=== PATIENT | male | born 1960 | race Caucasian/White ===

== ENCOUNTER 2018-11-06 12:29 | Inpatient (IN) | payer MEDICARE, OTHER ==
--- NOTE | 2018-11-06 18:49 | XR ---
EXAMINATION: XR chest 3V DATE AND TIME: 11/06/2018 6:38 PM CLINICAL INDICATION: PHH; copd TECHNIQUE: Frontal and 2 lateral views COMPARISON: 05/04/2014 FINDINGS: The overlying soft tissues are prominent. The lungs are negative for definite pulmonary edema or major atelectasis or pneumonia. There is a 1 c m calcification which was seen on the prior study, consistent with calcified granuloma. The pleural spaces are negative. The cardiac silhouette is markedly enlarged, similar to the prior study. The remainder of the mediast inal silhouette is unremarkable. The skeletal structures and soft tissues are negative for acute findings. IMPRESSION: NO ACUTE PULMONARY-PLEURAL PROCESS.
[2018-11-06 19:03] LABS: ALT 31 U/L (21-72); AST 23 U/L (17-59); Alkaline Phosphatase 81 U/L (38-126); Anion Gap 3 mmol/L; Blood Urea Nitrogen 16 mg/dL (9-20); Calcium 8.6 mg/dL (8.4-10.2); Carbon Dioxide 39 mmol/L (22-30); Chloride 99 mmol/L (98-107); Glucose 86 mg/dL (74-99); Potassium 4.5 mmol/L (3.5-5.1); Sodium 141 mmol/L (137-145); Total Bilirubin 0.7 mg/dL (0.2-1.3); Total Protein 7.2 g/dL (6.3-8.2)
[2018-11-06 19:19] LABS: T4, Free (Free Thyroxine) 1.12 ng/dL (0.78-2.19)
[2018-11-06 19:26] LABS: Anisocytosis Slight; HGB 17.1 gm/dL (13.0-17.5); Hypochromasia Marked; MCHC 29.5 g/dL (31.0-37.0); MCV 88.3 fL (80.0-100.0); Mean Platelet Volume 7.5; Platelet Count 219 k/uL (150-450); RBC 6.57 m/uL (4.30-5.90); RDW 17.8 % (11.5-15.5); WBC 5.6 k/uL (3.8-10.6)
[2018-11-06] MEDS: FUROSEMIDE 80 MG TAB PO SCH (19:58)
[2018-11-06] MEDS: SYMBICORT 160-4.5 MCG INHALER INHALATION SCH (20:28)
[2018-11-06] MEDS: IPRATROPIUM-ALBUTEROL 3 ML NEB INHALATION SCH (20:28)
[2018-11-06 20:45] LABS: Band Neutrophils % 10 %; Eosinophils # (M) 0.06 k/uL (0-0.7); Lymphocytes # (M) 1.29 k/uL (1.0-4.8); Monocytes # (M) 0.22 k/uL (0-1.0); Neutrophils % (M) 62 %; Nucleated Red Blood Cells 0 /100 WBC (0-0); Total Cells Counted 100
[2018-11-06] MEDS: SPIRONOLACTONE 25 MG TAB PO SCH (21:59)
[2018-11-06 22:43] LABS: Appearance,Urine Clear (Clear); Bilirubin,Urine Negative (Negative); Blood,Urine Negative (Negative); Color,Urine Colorless; Glucose,Urine (UA) Negative (Negative); Ketones,Urine Negative (Negative); Leukocyte Esterase,Urine Negative (Negative); Nitrite,Urine Negative (Negative); Protein,Urine Trace (Negative); Specific Gravity,Urine 1.004 (1.001-1.035); Urobilinogen,Urine <2.0 mg/dL (<2.0)
[2018-11-06] MEDS: ceFAZolin 1,000 MG in DEXTROSE/WATER 1 50ML.BAG IVPB SCH (23:54)
[2018-11-07] MEDS ORDERED: ceFAZolin IN SWFI 2 GM/20 ML SYRINGE IVP SCH
[2018-11-07 02:04] LABS: Hemoglobin A1C 6.2 % (4.0-6.0)
[2018-11-07 07:40] LABS: ABG Base Excess 13.8 mmol/L; ABG Oxygen Saturation 93.1 % (94-97); ABG PH 7.21 (7.35-7.45); ABG PO2 80 mmHg (83-108); ABG TCO2 45 mmol/L (19-24)
[2018-11-07 07:44] LABS: Glucose,Whole Blood 117 mg/dL (75-99)
[2018-11-07] MEDS ORDERED: FUROSEMIDE 10 MG/ML 10 ML VIAL IV STA (07:51)
--- NOTE | 2018-11-07 07:56 | XR ---
EXAMINATION TYPE: XR chest 1V portable DATE OF EXAM: 11/07/2018 HISTORY: shortness of breath. REFERENCE: Previous study dated 11/06/2018. FINDINGS: The heart is enlarged. There is vascular congestion and pulmonary edema. I could not exclud e small effusions. I suspect underlying COPD. IMPRESSION: FINDINGS MOST CONSISTENT WITH CONGESTIVE HEART FAILURE.
[2018-11-07] MEDS: THEOPHYLLINE 24 HOUR 300 MG CAP.ER.24H PO SCH (08:31)
[2018-11-07] MEDS: ceFAZolin 1,000 MG in DEXTROSE/WATER 1 50ML.BAG IVPB SCH ×2 (08:31→15:12)
[2018-11-07] MEDS: FUROSEMIDE 80 MG TAB PO SCH ×2 (08:31→18:47)
[2018-11-07] MEDS: SPIRONOLACTONE 25 MG TAB PO SCH ×2 (08:31→21:39)
[2018-11-07] MEDS: LISINOPRIL 20 MG TAB PO SCH (08:31)
[2018-11-07] MEDS: IPRATROPIUM-ALBUTEROL 3 ML NEB INHALATION SCH ×4 (09:47→20:03)
[2018-11-07] MEDS: SYMBICORT 160-4.5 MCG INHALER INHALATION SCH (09:48)
--- NOTE | 2018-11-07 09:58 | P.CNPUL ---
History of Present Illness Consult date: 11/07/18 Reason for consult: dyspnea, COPD, obstructive sleep apnea Chief complaint: Cellulitis History of present illness: This is a 58-year-old gentleman who was a direct admit from Dr. Sevilla's office. The patient was apparently admitted for lower extremity cellulitis and ulcers. This morning a rapid response was called because the patient was hypoxic. He was on 2 L nasal cannula with O2 saturation 70%. The oxygen was increased to 6 L and the patient was somnolent. An ABG was obtained and the patient was found to have a CO2 of 103. The patient apparently does not wear home oxygen. He is however on theophylline. He states he does not follow with a lung doctor in the office. He denies fevers and chills. He states he is a lifelong never smoker. He does have a history of obstructive sleep apnea but states he does not have a CPAP. This morning the patient was given Lasix 80 mg 1 IV as well as Solu-Medrol. He is currently on BiPAP and is easily arousable, conversational, comfortable. Review of Systems All systems: negative Past Medical History Past Medical History: Heart Failure, COPD, Hypertension, Osteoarthritis (OA), Sleep Apnea/CPAP/BIPAP Additional Past Medical History / Comment(s): OBESITY. CELLULITIS. does not have cpap History of Any Multi-Drug Resistant Organisms: None Reported Past Surgical History: Adenoidectomy, Tonsillectomy Past Anesthesia/Blood Transfusion Reactions: No Reported Reaction Past Psychological History: No Psychological Hx Reported Smoking Status: Never smoker Past Alcohol Use History: Rare Past Drug Use History: None Reported - Past Family History Sister(s) Family Medical History: Cancer Mother Family Medical History: Cancer Medications and Allergies Home Medications Medication Instructions Recorded Confirmed Type Albuterol Sulfate [Proair Hfa] 1 puff INHALATION RT-QID PRN 05/04/14 11/06/18 History Fluticasone/Salmeterol [Advair 1 puff INHALATION RT-BID 05/04/14 11/06/18 History 500-50 Diskus] Furosemide [Lasix] 80 mg PO BID 05/04/14 11/06/18 History Albuterol Nebulized [Ventolin 2.5 mg INHALATION RT-QID 11/06/18 11/06/18 History Nebulized] SILVER sulfADIAZINE Cream 1 applic TOPICAL BID 11/06/18 11/06/18 History [Silvadene 1% Cream] Allergies Allergy/AdvReac Type Severity Reaction Status Date / Time Penicillins Allergy Unknown Verified 10/24/14 10:52 Physical Exam Osteopathic Statement: *. No significant issues noted on an osteopathic structural exam other than those noted in the History and Physical/Consult. Vitals: Vital Signs Temp Pulse Pulse Pulse Pulse Resp BP 11/07/18 08:36 89 15 11/07/18 08:35 97.1 F L 89 15 130/84 11/07/18 07:40 89 22 132/68 11/07/18 07:26 98.3 F 91 24 132/92 11/07/18 02:16 98.4 F 94 20 130/76 11/06/18 20:57 11/06/18 20:47 98 11/06/18 20:41 98 11/06/18 20:30 97 11/06/18 20:17 98.1 F 97 34 H 142/85 11/06/18 18:04 98.1 F 90 20 123/61 Pulse Ox 11/07/18 08:36 11/07/18 08:35 98 11/07/18 07:40 94 L 11/07/18 07:26 94 L 11/07/18 02:16 91 L 11/06/18 20:57 93 L 11/06/18 20:47 11/06/18 20:41 88 L 11/06/18 20:30 11/06/18 20:17 94 L 11/06/18 18:04 93 L Intake and Output 11/06/18 11/07/18 11/07/18 22:59 06:59 14:59 Intake Total 355 850 290 Output Total 450 Balance 355 850 -160 Intake: IV 5 240 .9 @ 20 240 Invasive Line 1 5 Intake, IV Titration 50 50 Amount ceFAZolin 1,000 mg In 50 50 Dextrose/Water 1 50ml.bag @ 100 mls/hr IVPB Q8HR [facility] Rx#:[id number] Oral 350 800 Output: Urine 450 Other: Voiding Method Toilet Toilet Urinal Urinal # Voids 4 1 Weight 149.26 kg Gen.: Patient is alert and oriented, on BiPAP, comfortable Cardiovascular: Regular rate and rhythm, S1/S2 Lungs: Diminished breath sounds bilaterally with scattered rhonchi Abdomen: Soft nontender nondistended positive bowel sounds Extremities: Edema with chronic venous stasis and ulcers as well as stasis dermatitis Results - Laboratory Findings CBC and BMP: 11/06/18 18:49 11/06/18 18:49 ABG ABG pH 7.21 (7.35-7.45) L 11/07/18 07:30 ABG pCO2 103 mmHg (35-45) H* 11/07/18 07:30 ABG pO2 80 mmHg (83-108) L 11/07/18 07:30 ABG O2 Saturation 93.1 % (94-97) L 11/07/18 07:30 Abnormal lab findings: Abnormal Labs 11/06/18 11/06/18 11/06/18 18:49 18:49 18:49 RBC 6.57 H Hct 58.0 H* MCHC 29.5 L RDW 17.8 H ABG pH ABG pCO2 ABG pO2 ABG HCO3 ABG Total CO2 ABG O2 Saturation Carbon Dioxide 39 H POC Glucose (mg/dL) Hemoglobin A1c 6.2 H Albumin 3.0 L Urine Protein 11/06/18 11/07/18 11/07/18 22:31 07:25 07:30 RBC Hct MCHC RDW ABG pH 7.21 L ABG pCO2 103 H* ABG pO2 80 L ABG HCO3 42 H* ABG Total CO2 45 H ABG O2 Saturation 93.1 L Carbon Dioxide POC Glucose (mg/dL) 117 H Hemoglobin A1c Albumin Urine Protein Trace H - Diagnostic Findings Chest x-ray: report reviewed, image reviewed Assessment and Plan Assessment: Acute on chronic hypoxic and hypercapnic respiratory failure Acute exacerbation of asthma, severe persistent, uncontrolled Respiratory acidosis Life long never smoker DAIANA/OHS - non compliant with PAP therapy Suspect chronic hypoxemia due to polycythemia Suspect cor pulmonale and right heart failure secondary to above Acute exacerbation of CHF, unknown type Lower extremity cellulitis Mild PCM Continue bipap today and nightly Pulmicort, Ruddy Dougherty, Perforomist Patient will need bipap for home, will consult case management Lasix given Echocardiogram ABX per ID Solumedrol taper Check theophylline level I/O, daily weight, monitor urine output and renal function CBC, CMP now IgE/HP/allergy panel AM CXR Thank you for this consultation. We will continue to follow along.
--- NOTE | 2018-11-07 10:31 | P.GSCN ---
History of Present Illness Consult date: 11/07/18 Reason for Consult: Lower extremity cellulitis and ulcerations Requesting physician: Daquan Sevilla History of present illness: We are unable to obtain a history from this gentleman as he is moderately obtunded. Review of Systems ROS unobtainable: due to mental status Past Medical History Past Medical History: Heart Failure, COPD, Hypertension, Osteoarthritis (OA), Sleep Apnea/CPAP/BIPAP Additional Past Medical History / Comment(s): OBESITY. CELLULITIS. does not have cpap History of Any Multi-Drug Resistant Organisms: None Reported Past Surgical History: Adenoidectomy, Tonsillectomy Past Anesthesia/Blood Transfusion Reactions: No Reported Reaction Past Psychological History: No Psychological Hx Reported Smoking Status: Never smoker Past Alcohol Use History: Rare Past Drug Use History: None Reported - Past Family History Sister(s) Family Medical History: Cancer Mother Family Medical History: Cancer Medications and Allergies Home Medications Medication Instructions Recorded Confirmed Type Albuterol Sulfate [Proair Hfa] 1 puff INHALATION RT-QID PRN 05/04/14 11/06/18 History Fluticasone/Salmeterol [Advair 1 puff INHALATION RT-BID 05/04/14 11/06/18 History 500-50 Diskus] Furosemide [Lasix] 80 mg PO BID 05/04/14 11/06/18 History Albuterol Nebulized [Ventolin 2.5 mg INHALATION RT-QID 11/06/18 11/06/18 History Nebulized] SILVER sulfADIAZINE Cream 1 applic TOPICAL BID 11/06/18 11/06/18 History [Silvadene 1% Cream] Allergies Allergy/AdvReac Type Severity Reaction Status Date / Time Penicillins Allergy Unknown Verified 10/24/14 10:52 Surgical - Exam Osteopathic Statement: *. No significant issues noted on an osteopathic structural exam other than those noted in the History and Physical/Consult. Vital Signs Temp Pulse Resp BP Pulse Ox 98.1 F 90 20 123/61 93 L 11/06/18 18:04 11/06/18 18:04 11/06/18 18:04 11/06/18 18:04 11/06/18 18:04 - General Moderately obtunded severely obese 58-year-old gentleman looking older than his chronologic years. Currently on BiPAP well developed, well nourished, obese - Eyes normal ocular movement, no icteric - ENT no hearing loss, no congestion - Neck no masses, trachea midline - Respiratory Somewhat decreased breath sounds - Cardiovascular Rhythm: regular - Abdomen Obese but nontender - Integumentary The patient has elephant skinlike crusting on both feet. He has cellulitic changes in the lower half of both lower legs. There are moderate sized ulcerations almost circumferential bilaterally. - Neurologic Patient is nearly obtunded - Psychiatric Unable to get responses at this time. Results - Labs 11/06/18 18:49 11/06/18 18:49 Abnormal Lab Results - Last 24 Hours (Table) 11/06/18 11/06/18 11/06/18 Range/Units 18:49 18:49 18:49 RBC 6.57 H (4.30-5.90) m/uL Hct 58.0 H* (39.0-53.0) % MCHC 29.5 L (31.0-37.0) g/dL RDW 17.8 H (11.5-15.5) % ABG pH (7.35-7.45) ABG pCO2 (35-45) mmHg ABG pO2 (83-108) mmHg ABG HCO3 (21-25) mmol/L ABG Total CO2 (19-24) mmol/L ABG O2 Saturation (94-97) % Carbon Dioxide 39 H (22-30) mmol/L POC Glucose (mg/dL) (75-99) mg/dL Hemoglobin A1c 6.2 H (4.0-6.0) % Albumin 3.0 L (3.5-5.0) g/dL Urine Protein (Negative) 11/06/18 11/07/18 11/07/18 Range/Units 22:31 07:25 07:30 RBC (4.30-5.90) m/uL Hct (39.0-53.0) % MCHC (31.0-37.0) g/dL RDW (11.5-15.5) % ABG pH 7.21 L (7.35-7.45) ABG pCO2 103 H* (35-45) mmHg ABG pO2 80 L (83-108) mmHg ABG HCO3 42 H* (21-25) mmol/L ABG Total CO2 45 H (19-24) mmol/L ABG O2 Saturation 93.1 L (94-97) % Carbon Dioxide (22-30) mmol/L POC Glucose (mg/dL) 117 H (75-99) mg/dL Hemoglobin A1c (4.0-6.0) % Albumin (3.5-5.0) g/dL Urine Protein Trace H (Negative) Diabetes panel 11/06/18 11/06/18 Range/Units 18:49 18:49 Sodium 141 (137-145) mmol/L Potassium 4.5 (3.5-5.1) mmol/L Chloride 99 (98-107) mmol/L Carbon Dioxide 39 H (22-30) mmol/L BUN 16 (9-20) mg/dL Creatinine 0.72 (0.66-1.25) mg/dL Glucose 86 (74-99) mg/dL Hemoglobin A1c 6.2 H (4.0-6.0) % Calcium 8.6 (8.4-10.2) mg/dL AST 23 (17-59) U/L ALT 31 (21-72) U/L Alkaline Phosphatase 81 (38-126) U/L Total Protein 7.2 (6.3-8.2) g/dL Albumin 3.0 L (3.5-5.0) g/dL Thyroid panel 11/06/18 Range/Units 18:49 TSH 1.550 (0.465-4.680) mIU/L Calcium panel 11/06/18 Range/Units 18:49 Calcium 8.6 (8.4-10.2) mg/dL Albumin 3.0 L (3.5-5.0) g/dL Pituitary panel 11/06/18 Range/Units 18:49 Sodium 141 (137-145) mmol/L Potassium 4.5 (3.5-5.1) mmol/L Chloride 99 (98-107) mmol/L Carbon Dioxide 39 H (22-30) mmol/L BUN 16 (9-20) mg/dL Creatinine 0.72 (0.66-1.25) mg/dL Glucose 86 (74-99) mg/dL Calcium 8.6 (8.4-10.2) mg/dL TSH 1.550 (0.465-4.680) mIU/L Adrenal panel 11/06/18 Range/Units 18:49 Sodium 141 (137-145) mmol/L Potassium 4.5 (3.5-5.1) mmol/L Chloride 99 (98-107) mmol/L Carbon Dioxide 39 H (22-30) mmol/L BUN 16 (9-20) mg/dL Creatinine 0.72 (0.66-1.25) mg/dL Glucose 86 (74-99) mg/dL Calcium 8.6 (8.4-10.2) mg/dL Total Bilirubin 0.7 (0.2-1.3) mg/dL AST 23 (17-59) U/L ALT 31 (21-72) U/L Alkaline Phosphatase 81 (38-126) U/L Total Protein 7.2 (6.3-8.2) g/dL Albumin 3.0 L (3.5-5.0) g/dL Assessment and Plan (1) Severe obesity (BMI >= 40) Current Visit: Yes Status: Acute Code(s): E66.01 - MORBID (SEVERE) OBESITY DUE TO EXCESS CALORIES SNOMED Code(s): 226639391 (2) Ulcers of both lower extremities Current Visit: Yes Status: Acute Code(s): L97.919 - NON-PRS CHRONIC ULC UNSP PRT OF R LOW LEG W UNSP SEVERITY; L97.929 - NON-PRS CHRONIC ULC UNSP PRT OF L LOW LEG W UNSP SEVERITY SNOMED Code(s): 68242648 (3) Cellulitis Current Visit: No Status: Acute Code(s): L03.90 - CELLULITIS, UNSPECIFIED SNOMED Code(s): 999555544 (4) Venous stasis ulcer Current Visit: No Status: Acute Code(s): I83.009 - VARICOSE VEINS OF UNSP LOWER EXTREMITY W ULCER OF UNSP SITE SNOMED Code(s): 401780172 Plan: I discussed the case with pulmonary medicine. I concur that the patient has severe swelling and secondary stasis ulcers this is likely secondary to right heart failure and secondary lower extremity venous hypertension. Pulmonology will continue with aggressive treatment for his general medical and respiratory status. Would utilize absorptive silver and double Nguyễn wraps on both lower extremities to decrease edema and wrap the ulcerations. Infectious diseases consult that and will defer antibiotics to them. I will see him as needed during his hospital stay. After discharge would recommend weekly follow-up in wound care. Appreciate the opportunity to participate in the care of this challenging patient.
[2018-11-07 10:49] LABS: Anisocytosis Slight; HGB 16.7 gm/dL (13.0-17.5); Hypochromasia Marked; MCH 25.3 pg (25.0-35.0); MCHC 28.8 g/dL (31.0-37.0); MCV 87.8 fL (80.0-100.0); Mean Platelet Volume 7.7; Platelet Count 213 k/uL (150-450); RDW 17.7 % (11.5-15.5); WBC 6.6 k/uL (3.8-10.6)
[2018-11-07 11:00] LABS: ALT 22 U/L (21-72); AST 31 U/L (17-59); Albumin 3.1 g/dL (3.5-5.0); Alkaline Phosphatase 93 U/L (38-126); Anion Gap 8 mmol/L; Blood Urea Nitrogen 14 mg/dL (9-20); Calcium 8.9 mg/dL (8.4-10.2); Chloride 92 mmol/L (98-107); Glucose 109 mg/dL (74-99); Potassium 4.2 mmol/L (3.5-5.1); Sodium 140 mmol/L (137-145); Theophylline <1.0 ug/mL; Total Bilirubin 0.9 mg/dL (0.2-1.3); Total Protein 7.4 g/dL (6.3-8.2)
[2018-11-07 11:07] LABS: Carbon Dioxide 40 mmol/L (22-30)
[2018-11-07 11:40] LABS: ABG Base Excess 18.2 mmol/L; ABG Oxygen Saturation 91.5 % (94-97); ABG PH 7.26 (7.35-7.45); ABG PO2 70 mmHg (83-108); ABG TCO2 48 mmol/L (19-24)
[2018-11-07 11:45] LABS: Glucose,Whole Blood 93 mg/dL (75-99)
[2018-11-07 13:20] LABS: Band Neutrophils % 2 %; Lymphocytes # (M) 0.79 k/uL (1.0-4.8); Monocytes # (M) 0.59 k/uL (0-1.0); Neutrophils % (M) 77 %; Nucleated Red Blood Cells 0 /100 WBC (0-0); Total Cells Counted 100
[2018-11-07] MEDS: INSULIN ASPART (NovoLOG) 100 UNIT/ML VIAL SQ SCH ×3 (14:54→21:34)
[2018-11-07] MEDS: HEPARIN SODIUM,PORCINE 5,000 UNIT/ML 1 ML VIAL SQ SCH ×2 (15:11→23:55)
[2018-11-07] MEDS: methylPREDNISolone SOD SUCCI 125 MG/2 ML VIAL IV SCH ×3 (15:11→23:55)
--- NOTE | 2018-11-07 16:30 | HP ---
HISTORY AND PHYSICAL CHIEF COMPLAINT: Lower extremity edema and cellulitis. HISTORY OF PRESENT ILLNESS: This is another admission for this 58-year-old obese white male who has a longstanding history of reactive airway disease and venous stasis with severe swelling, cellulitis, stasis dermatitis and ulcers. Came to the office on the day of admission for refills on his medication. A foul odor was noted. He was reluctant, but his lower extremities were examined and he was found to have an extreme hyperkeratosis of the feet with onychomycosis and massive swelling of the lower legs, particularly below the knees with weeping, maceration and ulcers on both sides. Because he cannot care for himself well and never has, it was felt safest to admit him. He denied fever, chills. REVIEW OF SYSTEMS: Otherwise unremarkable. He has had no neurologic problems. He has had no change in vision or hearing. He has had no cough and he denies a lot of shortness of breath. He is chronically wheezy. Cardiac history demonstrates no history of chest pain or congestive heart failure. He has had no GI complaints or problems nor urinary difficulty. He is not diabetic. Past medical history, family history, personal and social history reveal he is ALLERGIC to PENICILLIN. MEDICATIONS: He is on albuterol at home, vitamin D, spironolactone, Lasix, Singulair, lisinopril, but it is not certain that he is taking any or all of these. He is very unreliable. Past history is otherwise unremarkable and unchanged. He does have a history of hypertension and he has been given a diagnosis of heart failure before. He is morbidly obese, but he has never smoked. PHYSICAL EXAM: Blood pressure is 138/78 with a pulse of 88, respirations 24, temperature 98.6. In general, he appeared to be overweight. He was short of breath. Face is somewhat flushed. Dry skin on the face. Ears, nose, mouth, and throat were otherwise normal. Chest demonstrated poor breath sounds. Wheezing on inspiration and expiration and dullness to percussion. Cardiac exam demonstrated sinus tachycardia with no murmurs or extra sounds. Abdomen is soft and protuberant. Extremities demonstrated the massive lower extremity edema with cellulitis, ulcers, transudation and hyperkeratosis of the feet. Pulses could not be determined. Neurologically intact. IMPRESSION: 1. Chronic stasis disease, lower extremities. 2. Acute stasis dermatitis with ulcerations in both lower legs. 3. Hyperkeratosis of the feet. 4. Onychomycosis. 5. Chronic obstructive pulmonary disease due to chronic reactive airway disease. PLAN: 1. Bed rest. 2. IV fluids. 3. IV antibiotics. 4. Vascular surgery consult. 5. Wound care. 6. Consult Pulmonology. MMHERACLIO / IJN: [id number] /
--- NOTE | 2018-11-07 16:36 | PN ---
PROGRESS NOTE DATE OF SERVICE: 11/07/2018. CHIEF COMPLAINT: Respiratory arrest. HISTORY OF PRESENT ILLNESS: During the night this gentleman developed hypercarbia, with a CO2 over 100 and became unresponsive. He was moved to telemetry and he is now on BiPAP. REVIEW OF SYSTEMS: He is he is very lethargic and can be aroused. PHYSICAL EXAM: Vital signs were normal and breath sounds are heard on both sides. Cardiac exam is normal sinus rhythm. The abdomen is protuberant and soft. The legs are so far, unchanged. IMPRESSION: 1. Respiratory arrest. 2. Respiratory acidosis. PLAN: Continue supportive care with BiPAP, IV fluids and antibiotics. MMODL / IJN: [id number] /
[2018-11-07 16:45] LABS: Glucose,Whole Blood 77 mg/dL (75-99)
--- NOTE | 2018-11-07 17:49 | ECHOF ---
Referral Reason:cardiomegaly MEASUREMENTS -------- HEIGHT: 180.3 cm WEIGHT: 149.2 kg BP: 130/84 RVIDd: 4.9 cm (< 3.3) IVSd: 1.6 cm (0.6 - 1.1) LVIDd: 5.2 cm (3.9 - 5.3) LVPWd: 1.6 cm (0.6 - 1.1) IVSs: 2.2 cm LVIDs: 2.9 cm LVPWs: 2.2 cm LA Diam: 3.8 cm (2.7 - 3.8) Ao Diam: 4.3 cm (2.0 - 3.7) AV Cusp: 1.9 cm (1.5 - 2.6) LA Diam: 3.4 cm (2.7 - 3.8) MV E Jason: 0.77 m/s MV DecT: 284 ms MV A Jason: 0.72 m/s MV E/A Ratio: 1.08 RAP: 15.00 mmHg RVSP: 48.92 mmHg %FS: 59.42 % EDV(Teich): 59.25 ml EF(Teich): 89.53 % ESV(Teich): 6.20 ml IVSd: 2.00 cm (0.6 - 1.1) IVSs: 2.43 cm LVIDd: 3.73 cm (3.9 - 5.3) LVIDs: 1.51 cm LVPWd: 1.95 cm (0.6 - 1.1) LVPWs: 2.76 cm SV(Teich): 53.05 ml FINDINGS -------- Sinus rhythm. This was a technically difficult study with suboptimal views. The left ventricular size is normal. There is moderate concentric left ventricular hypertrophy. O verall left ventricular systolic function is normal with, an EF between 55 - 60 %. The right ventricle is severely enlarged. The right ventricular septal wall is flattened in systole which is consistent with right ventricular pressure overload. The left atrial size is normal. RA appears enlarged. 4 ml of Lumason was utilized for enhancement of images. There is mild aortic valve sclerosis. There is no evidence of aortic regurgitation. There is no e vidence of aortic stenosis. The mitral valve leaflets are mildly thickened. There is trace to mild mitral regurgitation. Moderate tricuspid regurgitation present. There is mild pulmonary hypertension. The right ventric ular systolic pressure, as measured by Doppler, is 48.92mmHg. The pulmonic valve was not well visualized. The aortic root size is normal. The inferior vena cava is dilated with no significant inspiratory collapse which is consistent estima cyndee right atrial pressure of >20 mmHg. There is a moderate, generalized pericardial effusion present. CONCLUSIONS -------- 1. Sinus rhythm. 2. This was a technically difficult study with suboptimal views. 3. The left ventricular size is normal. 4. There is moderate concentric left ventricular hypertrophy. 5. Overall left ventricular systolic function is normal with, an EF between 55 - 60 %. 6. The right ventricle is severely enlarged. 7. The right ventricular septal wall is flattened in systole which is consistent with right ventricu lar pressure overload. 8. The left atrial size is normal. 9. RA appears enlarged. 10. 4 ml of Lumason was utilized for enhancement of images. 11. There is mild aortic valve sclerosis. 12. The mitral valve leaflets are mildly thickened. 13. There is trace to mild mitral regurgitation. 14. Moderate tricuspid regurgitation present. 15. There is mild pulmonary hypertension. 16. The right ventricular systolic pressure, as measured by Doppler, is 48.92mmHg. 17. The pulmonic valve was not well visualized. 18. The aortic root size is normal. 19. The inferior vena cava is dilated with no significant inspiratory collapse which is consistent es timated right atrial pressure of >20 mmHg. 20. There is a moderate, generalized pericardial effusion present. QUALITY CONTROL TECHNICIAN: Tyson Kolb RDCS
[2018-11-07 18:13] LABS: ABG Base Excess 20.3 mmol/L; ABG PH 7.35 (7.35-7.45); ABG PO2 91 mmHg (83-108); ABG TCO2 49 mmol/L (19-24)
[2018-11-07 18:18] LABS: ABG HCO3 46 mmol/L (21-25); ABG PCO2 84 mmHg (35-45)
[2018-11-07] MEDS: BUDESONIDE 0.5 MG/2 ML NEBU INHALATION SCH (20:03)
[2018-11-07] MEDS: FORMOTEROL FUMARATE 20 MCG/2 ML NEBU INHALATION SCH (20:03)
[2018-11-07 20:52] LABS: Glucose,Whole Blood 134 mg/dL (75-99)
[2018-11-07] MEDS: MONTELUKAST 10 MG TAB PO SCH (21:39)
[2018-11-08] MEDS ORDERED: ceFAZolin 2,000 MG in DEXTROSE/WATER 1 50ML.BAG IVPB SCH
[2018-11-08] MEDS: ceFAZolin IN SWFI 2 GM/20 ML SYRINGE IVP SCH ×4 (00:02→23:24)
[2018-11-08 05:55] LABS: Glucose,Whole Blood 118 mg/dL (75-99)
[2018-11-08] MEDS: INSULIN ASPART (NovoLOG) 100 UNIT/ML VIAL SQ SCH ×4 (06:54→20:15)
[2018-11-08] MEDS: methylPREDNISolone SOD SUCCI 125 MG/2 ML VIAL IV SCH ×4 (06:56→23:24)
[2018-11-08 08:23] LABS: ABG Base Excess 20.8 mmol/L; ABG Oxygen Saturation 93.8 % (94-97); ABG PH 7.37 (7.35-7.45); ABG PO2 68 mmHg (83-108); ABG TCO2 49 mmol/L (19-24)
[2018-11-08 08:28] LABS: ABG HCO3 46 mmol/L (21-25); ABG PCO2 80 mmHg (35-45)
--- NOTE | 2018-11-08 08:33 | CONS ---
CONSULTATION DATE OF SERVICE: 11/07/2018. REASON FOR CONSULTATION: Bilateral lower extremity cellulitis. HISTORY OF PRESENT ILLNESS: The patient is a 58-year-old male, morbidly obese. Patient has been admitted directly from Dr. Sevilla's office yesterday for evaluation of bilateral lower extremity ulcers and encephalitis. The patient did have morbid obesity, sleep apnea. On admission he was noticed to be hypoxic. was called and the patient noticed to have elevated pCO2 and has been started on a BiPAP. At the time of my evaluation, the patient has been lethargic and sleepy and could not provide any history. Per the nursing staff, no nausea, vomiting or diarrhea has been reported. The patient did not have any fever on admission or subsequently afterwards. The patient white count has been normal. He did have hemoglobin of 16.7 and his electrolytes and kidney function and liver function has been normal. Urine negative. Most of the information has been obtained from review of the chart provide any history. REVIEW OF SYSTEMS: Could not be reliably obtained though the positive points have been mentioned in HPI. PAST MEDICAL HISTORY: Heart failure, COPD, hypertension, osteoarthritis, sleep apnea, BiPAP, lower extremity cellulitis. PAST SURGICAL HISTORY: Adenoidectomy, tonsillectomy. SOCIAL HISTORY: No history of smoking. Occasionally drinks. No drug use. FAMILY HISTORY: Mother and sister with a history of cancer. ALLERGIES: PENICILLIN. However tolerates without any problem. MEDICATION: Include the patient is currently on DuoNeb, Pulmicort, Cefazolin 1 gm, fumarate, formoterol, Lasix, heparin, Novolog, Zestril, Solu-Medrol, Singulair, Aldactone, . PHYSICAL EXAMINATION: Blood pressure is 138/79 with a pulse of 88, temperature 98. He is 94% on 2 L nasal cannula. General description is a middle-aged male lying in bed in no distress. No tachypnea or accessory muscles of respiration use. HEENT: Shows no pallor or scleral icterus. Oral mucosa membranes are dry. No pharyngeal erythema or thrush. NECK: Trachea is central. No thyromegaly. LUNGS: Unlabored breathing with decreased breath sounds in the base, with no wheeze. Heart S1, S2. Regular rate and rhythm. ABDOMEN: Soft, no tenderness. No guarding or rigidity. Extremities: Bilateral lower legs include significant swelling some superficial ulceration from the right leg. No slough tissue. No foul smelling drainage. Neurological: Patient is lethargic, though arousable. Orientation could not be determined. No neck rigidity. LABS: Hemoglobin 15.7, white count 6.5 with a BUN of 14, creatinine 0.6, and electrolytes have been normal. Liver enzymes are normal. Urine has been negative. His chest x-ray findings suggestive of congestive heart failure. DIAGNOSTIC IMPRESSION AND PLAN: Patient with bilateral lower extremity cellulitis in this patient who did have a diffuse swelling and redness likely representing a streptococcal cellulitis with no evidence of any abscess or concern for gram-negative infection. PLAN: 1. We will increase the dose of cefazolin 2 g q.8 hours. 2. Aquacel Silver dressing to the open wound on the right leg followed by nayan wrap from just above the that will need to be changed daily. 3. We will follow up on clinical condition and culture to further adjust medication if needed. Thank you for this consultation. Will follow this patient along with you. MMODL / IJN: [id number] /
--- NOTE | 2018-11-08 09:10 | XR ---
EXAMINATION TYPE: XR chest 1V portable DATE OF EXAM: 11/08/2018 Comparison: 11/07/2018 Clinical History: 58-year-old male CHF Findings: Heart moderately enlarged. Diffuse interstitial and vascular prominence. Left base underpenetrated an d not well assessed. Patchy right basilar opacity is unchanged. Impression: Moderate cardiomegaly and interstitial changes. Correlate for persistent mild CHF. Left base remains underpenetrated and not well assessed.
[2018-11-08] MEDS: FUROSEMIDE 80 MG TAB PO SCH ×2 (09:34→16:48)
[2018-11-08] MEDS: LISINOPRIL 20 MG TAB PO SCH (09:34)
[2018-11-08] MEDS: SPIRONOLACTONE 25 MG TAB PO SCH ×2 (09:34→20:15)
[2018-11-08] MEDS: THEOPHYLLINE 24 HOUR 300 MG CAP.ER.24H PO SCH (09:34)
[2018-11-08] MEDS: HEPARIN SODIUM,PORCINE 5,000 UNIT/ML 1 ML VIAL SQ SCH ×3 (09:35→23:25)
[2018-11-08] MEDS: VERAPAMIL 40 MG TAB PO SCH ×3 (09:35→20:15)
[2018-11-08] MEDS: IPRATROPIUM-ALBUTEROL 3 ML NEB INHALATION SCH ×4 (09:39→21:09)
[2018-11-08] MEDS: BUDESONIDE 0.5 MG/2 ML NEBU INHALATION SCH ×2 (09:42→21:09)
[2018-11-08] MEDS: FORMOTEROL FUMARATE 20 MCG/2 ML NEBU INHALATION SCH ×2 (09:42→21:09)
[2018-11-08 11:30] LABS: Glucose,Whole Blood 140 mg/dL (75-99)
[2018-11-08 16:25] LABS: Glucose,Whole Blood 90 mg/dL (75-99)
--- NOTE | 2018-11-08 17:39 | PN ---
PROGRESS NOTE He was seen on 11/08/2018. He has been hemodynamically stable. He is less short of breath. He has been wearing BiPAP in the hospital. On physical examination respiratory rate is 22, pulse rate of 88, temperature 98.6, O2 saturation on 3 L by nasal cannula is 87%. HEENT is unremarkable. Chest reveals decreased breath sounds. Prolonged exhalation. Cardiovascular system reveals an S1, S2. Abdomen is soft. There is 2+ pedal edema. Chest x-ray shows moderate cardiomegaly with some interstitial changes. IMPRESSION: At this time: 1. Acute on chronic respiratory failure in part due to untreated obstructive sleep apnea. 2. Cor pulmonale and right heart failure. 3. Lower extremity cellulitis. Continue BiPAP. May require this for home. Continue bronchodilators, aerosolized steroids, Solu-Medrol taper. Continue antibiotics increases activity level, optimize his fluid status. His prognosis at this time is fair. MMODL / IJN: [id number] /
--- NOTE | 2018-11-08 18:31 | CONS ---
CONSULTATION This is a 58-year-old gentleman who has probably a long-standing obstructive sleep apnea and significant cor pulmonale type picture, came into the hospital, sent in by Dr. Sevilla. He was sent in by Dr. Sevilla. Apparently he came to the office and he was having some edema of his lower extremities hyperkeratoses with this massive swelling of both his lower extremities with some weeping ulcers. Because of this, he was admitted to the hospital. He does not take his medications. He is very noncompliant. I cannot obtain a meaningful history from the patient, but on evaluating the chart, it appears that he has he has significant CO2 retention and his pCO2 was more than 80 when he came in and it has shown modest improvement after he arrived. He has been placed on a BiPAP. I was asked to see him for congestive heart failure, but it appears we are dealing with a right heart failure with significant enlargement of the right ventricle. The patient is being placed on a BiPAP. He denies any chest pain. Patient is unable to give me meaningful history, but he indicates to me that he has not smoked. However, at the time of my evaluation, he is a little bit confused and he is now being placed back on a BiPAP. PAST MEDICAL HISTORY: Past medical history is remarkable for chronic lower extremity edema, osteoarthritis, obesity, degenerative joint disease, sleep apnea and I do not believe he wears his CPAP regularly and I am not even sure if he has one. ALLERGIES: PENICILLIN. MEDICATIONS: He apparently has some inhaler, Advair and ProAir. He does take Lasix 80 mg b.i.d. This patient apparently was directly admitted to the hospital. He was very hypoxic, hypercapnic and somnolescent. He has been moved to the telemetry unit rather urgently and his pCO2 was over 100. He is now on steroids and bronchodilators and BiPAP and demonstrating some modest improvement. Please refer to the notes by Dr. Sevilal and Dr. Loya. PHYSICAL EXAMINATION: Blood pressure is 116/70, pulse rate is 88 per minute. HEENT unremarkable. Fundus was not examined by me. NECK: Supple. There is JVD. I do not hear a carotid bruit. Heart exam reveals S1, S2 heard normally but distantly. Lungs reveal bilateral diminished air entry with scattered rhonchi. Abdomen is soft. Lower extremities reveal bilateral edema with weeping ulcers. Bandages are on the leg. EKG revealed a sinus mechanism with a right bundle branch block. Left axis deviation. Echocardiogram performed yesterday revealed that the left ventricle is of normal size with fair systolic function and ejection fraction of about 55%. Right ventricle is severely enlarged with flattening of the interventricular septum suggestive of pressure and volume overload with right-sided pressures in the range of 50 mmHg. LABORATORY DATA: The laboratory data suggests polycythemia. IMPRESSION: 1. Obstructive sleep apnea syndrome with pulmonary hypertension, chronic obstructive pulmonary disease, and hypercapnic respiratory failure on BiPAP. 2. 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 3. Cor pulmonale. 4. Abnormal EKG with left bundle. 5. No evidence of left ventricular failure. RECOMMENDATIONS: From a cardiac standpoint I suspect the patient can go into atrial fib at any time, given his pulmonary status, but I will add verapamil 40 mg t.i.d. He is already being seen by pulmonology and vascular surgery as well as Infectious Disease. Prognosis remains poor. I have no other suggestions for this gentleman. Prognosis remains poor. MMODL / IJN: [id number] /
[2018-11-08 20:10] LABS: Glucose,Whole Blood 137 mg/dL (75-99)
[2018-11-08] MEDS: MONTELUKAST 10 MG TAB PO SCH (20:15)
--- NOTE | 2018-11-08 22:36 | PN ---
PROGRESS NOTE DATE OF SERVICE: 11/08/2018 REASON FOR FOLLOWUP: Bilateral lower extremity cellulitis. INTERVAL HISTORY: The patient is afebrile. He is more awake, alert today. He is breathing comfortably. Denies any chest pain. Occasional cough. Denies any worsening pain to the leg area. PHYSICAL EXAMINATION: Blood pressure 118/53 with a pulse of 96, temperature 99. He is 92% on 2 L nasal cannula. General description is a middle-aged male lying in bed in no distress. Respiratory system: Unlabored breathing, coarse breath sounds bilaterally. Heart S1, S2. Regular rate and rhythm. Abdomen soft. His legs are currently wrapped up in an Nguyễn wrap with no drainage on the dressing. LABS: No new labs have been obtained today. DIAGNOSTIC IMPRESSION AND PLAN: Patient with bilateral lower extremity venous stasis ulcer with secondary cellulitis. The patient is currently covered with Aquacel Silver. Will continue wound care with Aquacel Silver dressing and Nguyễn wrap to keep the swelling down and continue supportive care condition. MMODL / IJN: [id number] /
[2018-11-09 06:16] LABS: Glucose,Whole Blood 128 mg/dL (75-99)
[2018-11-09] MEDS: methylPREDNISolone SOD SUCCI 125 MG/2 ML VIAL IV SCH ×2 (06:20→12:10)
[2018-11-09] MEDS: INSULIN ASPART (NovoLOG) 100 UNIT/ML VIAL SQ SCH ×4 (06:20→21:27)
[2018-11-09] MEDS: BUDESONIDE 0.5 MG/2 ML NEBU INHALATION SCH ×2 (08:07→20:24)
[2018-11-09] MEDS: IPRATROPIUM-ALBUTEROL 3 ML NEB INHALATION SCH ×4 (08:07→20:24)
[2018-11-09] MEDS: FORMOTEROL FUMARATE 20 MCG/2 ML NEBU INHALATION SCH ×2 (08:20→20:24)
[2018-11-09] MEDS: LISINOPRIL 20 MG TAB PO SCH (08:43)
[2018-11-09] MEDS: SPIRONOLACTONE 25 MG TAB PO SCH ×2 (08:43→21:30)
[2018-11-09] MEDS: VERAPAMIL 40 MG TAB PO SCH ×3 (08:43→21:30)
[2018-11-09] MEDS: HEPARIN SODIUM,PORCINE 5,000 UNIT/ML 1 ML VIAL SQ SCH ×2 (08:43→17:35)
[2018-11-09] MEDS: THEOPHYLLINE 24 HOUR 300 MG CAP.ER.24H PO SCH (08:43)
[2018-11-09] MEDS: FUROSEMIDE 80 MG TAB PO SCH ×2 (08:43→17:35)
[2018-11-09] MEDS: ceFAZolin IN SWFI 2 GM/20 ML SYRINGE IVP SCH ×2 (08:49→17:34)
[2018-11-09 11:52] LABS: Glucose,Whole Blood 108 mg/dL (75-99)
[2018-11-09 12:30] LABS: ABG HCO3 42 mmol/L (21-25); ABG PCO2 103 mmHg (35-45)
[2018-11-09 12:31] LABS: ABG HCO3 45 mmol/L (21-25); ABG PCO2 100 mmHg (35-45)
--- NOTE | 2018-11-09 14:23 | P.PN ---
Subjective Progress Note Date: 11/09/18 this is a 58-year-old gentleman with history of sleep apnea, cor pulmonale, chronic bilateral lower extremity edema with venous stasis and weeping ulcers, osteoarthritis, obesity.cardiology was initially asked to see the patient because of an abnormal EKG which showed a left bundle-branch block p attern. He continues to be in normal sinus rhythm, he was started on verapamil 40 mg 3 times a day yesterday. Dr. Martinez did have a discussion with the patient again this morning regarding the importance of wearing his CPAP.blood pressure 118/70 with a heart rate in the 90s. Objective - Vital Signs Vital signs: Vital Signs Temp 98.2 F 11/09/18 11:25 Pulse 96 11/09/18 11:55 Resp 20 11/09/18 11:25 BP 118/71 11/09/18 11:25 Pulse Ox 93 L 11/09/18 11:25 Intake & Output 11/08/18 11/09/18 11/09/18 18:59 06:59 18:59 Intake Total 1200 480 180 Output Total 1625 Balance -425 480 180 Weight 145 kg Intake: Oral 1200 480 180 Output: Urine 1625 Other: Voiding Method Indwelling Catheter # Bowel Movements 0 - Exam PHYSICAL EXAMINATION: GENERAL:58-year-old gentleman in no acute distress at the time of my examination HEENT: Head is atraumatic, normocephalic. Pupils equal, round. Sclera anicteric. Conjunctiva are clear. Mucous membranes of the mouth are moist. Neck is supple. There is no elevated jugular venous pressure.no carotid bruit is heard. HEART EXAMINATION: [Heart S1, S2 normal. No murmur or gallop heard.] CHEST EXAMINATION:lungs reveal scattered coarse rhonchi throughout ABDOMEN: [ Soft, Obese,nontender. Bowel sounds are heard. No organomegaly noted]. EXTREMITIES:[ 1+ peripheral pulses with no evidence chronic lower extremity edema, chronic venous stasis and ulcerations as well as stasis dermatitis. . - Labs CBC & Chem 7: 11/07/18 10:24 11/07/18 10:24 Labs: Abnormal Lab Results - Last 24 Hours (Table) 11/07/18 11/07/18 11/08/18 Range/Units 07:30 11:38 20:09 ABG pCO2 103 H* 100 H* (35-45) mmHg ABG HCO3 42 H* 45 H* (21-25) mmol/L POC Glucose (mg/dL) 137 H (75-99) mg/dL 11/09/18 11/09/18 Range/Units 06:07 11:48 ABG pCO2 (35-45) mmHg ABG HCO3 (21-25) mmol/L POC Glucose (mg/dL) 128 H 108 H (75-99) mg/dL Assessment and Plan Plan: assessment and plan #1Acute on chronic hypoxic and hypercapnic respiratory failure #2Acute exacerbation of asthma, severe persistent, uncontrolled #3Respiratory acidosis #4Life long never smoker #5OSA/OHS - non compliant with PAP therapy #6Suspect chronic hypoxemia due to polycythemia #7Suspect cor pulmonale and right heart failure secondary to above #8Acute exacerbation of CHF, diastolic acute on chronic #9Lower extremity cellulitis #10 the left bundle-branch block pattern with no evidence of atrial fibrillation. Plan Echo cardiac gram with Doppler study was performed which revealed an ejection fraction of 55-60%. From cardiology's perspective, we'll follow this patient along with you now on an as-needed basis only, please don't hesitate to call with any questions. DNP note has been reviewed, I agree with a documented findings and plan of care. Patient was seen and examined.
--- NOTE | 2018-11-09 14:39 | P.PN ---
Subjective Progress Note Date: 11/09/18 11/09/2018: Patient seen and examined. Patient is sitting up in the chair eating his lunch. He states he feels really well. He is asking for a walker so that he can walk around his room. The patient states he does have a BiPAP at home but it is very old he states it does not work anymore. Objective - Vital Signs Vital signs: Vital Signs Temp 98.2 F 11/09/18 11:25 Pulse 96 11/09/18 11:55 Resp 20 11/09/18 11:25 BP 118/71 11/09/18 11:25 Pulse Ox 93 L 11/09/18 11:25 Intake & Output 11/08/18 11/09/18 11/09/18 18:59 06:59 18:59 Intake Total 1200 480 180 Output Total 1625 Balance -425 480 180 Weight 145 kg Intake: Oral 1200 480 180 Output: Urine 1625 Other: Voiding Method Indwelling Catheter # Bowel Movements 0 - Exam Gen.: Patient is alert and oriented, Obese, no acute distress Cardiovascular: Regular rate and rhythm, S1/S2 Lungs: Diminished breath sounds bilaterally with scattered rhonchi Abdomen: Soft nontender nondistended positive bowel sounds Extremities: Edema with chronic venous stasis and ulcers as well as stasis dermatitis - Labs CBC & Chem 7: 11/07/18 10:24 11/07/18 10:24 Labs: Abnormal Lab Results - Last 24 Hours (Table) 11/07/18 11/07/18 11/08/18 Range/Units 07:30 11:38 20:09 ABG pCO2 103 H* 100 H* (35-45) mmHg ABG HCO3 42 H* 45 H* (21-25) mmol/L POC Glucose (mg/dL) 137 H (75-99) mg/dL 11/09/18 11/09/18 Range/Units 06:07 11:48 ABG pCO2 (35-45) mmHg ABG HCO3 (21-25) mmol/L POC Glucose (mg/dL) 128 H 108 H (75-99) mg/dL Assessment and Plan Assessment: Acute on chronic hypoxic and hypercapnic respiratory failure Acute exacerbation of asthma, severe persistent, uncontrolled Elevated IgE Respiratory acidosis Life long never smoker DAIANA/OHS - non compliant with PAP therapy Suspect chronic hypoxemia causing polycythemia Cor pulmonale and right heart failure secondary to above Acute exacerbation of CHF, unknown type Lower extremity cellulitis Mild PCM Continue bipap nightly and PRN Pulmicort, Duonebs, Singulair, Perforomist Echocardiogram reviewed ABX per ID Solumedrol taper Pending HP/allergy panel PT and OT Consult PM&R
--- NOTE | 2018-11-09 16:39 | P.CONS ---
History of Present Illness - Chief Complaint Medical debility - History of Present Illness I had the opportunity see patient for inpatient rehab consultation with regard to medical debility. He was admitted to [facility] November 06 with shortness of breath for which she is seen by Dr. Loya. She notes acute respiratory failure, hypoxic and hypercapnic. Seen by Dr. Thompson for lower extremity ulcers, cellulitis. PT and OT prescribed. Chest x-ray demonstrates moderate cardiomegaly and mild CHF. Previous functional history as elicited from patient: 58-year-old right-handed white male who is and lives in first-floor apartment alone. On SSI/SSD. Describes independent with own cooking, laundry, driving, standing shower and eat with 4 wheeled walker. Denies tobacco or alcohol. Dr. Sevilla is regular doctor. Family history both parents were smokers. Review of Systems Review of systems: Skin: Lower extremity ulcers and sores. ENT: Denies sneezes or discharge. Eyes: Denies discharge or photophobia. Cardiac: Denies chest pain or palpitation. Pulmonary: Denies cough or shortness of breath. Gastrointestinal: Denies nausea, emesis, constipation, diarrhea. Genitourinary: Denies discharge or frequency. Musculoskeletal: Denies muscle or bone aches. Lower extremity edema. Neurologic: Mild to moderate generalized weakness. Endocrine: Denies shakes or sweats. Oncology: Denies cancers. Dermatologic: Denies rash, itching, pruritus. ALLERGY/immunology: Denies sneezes, rashes. Past Medical History Past Medical History: Heart Failure, COPD, Hypertension, Osteoarthritis (OA), Sleep Apnea/CPAP/BIPAP Additional Past Medical History / Comment(s): OBESITY. CELLULITIS. does not have cpap History of Any Multi-Drug Resistant Organisms: None Reported Past Surgical History: Adenoidectomy, Tonsillectomy Past Anesthesia/Blood Transfusion Reactions: No Reported Reaction Past Psychological History: No Psychological Hx Reported Smoking Status: Never smoker Past Alcohol Use History: Rare Past Drug Use History: None Reported - Past Family History Sister(s) Family Medical History: Cancer Mother Family Medical History: Cancer Medications and Allergies Home Medications Medication Instructions Recorded Confirmed Type Albuterol Sulfate [Proair Hfa] 1 puff INHALATION RT-QID PRN 05/04/14 11/06/18 History Fluticasone/Salmeterol [Advair 1 puff INHALATION RT-BID 05/04/14 11/06/18 History 500-50 Diskus] Furosemide [Lasix] 80 mg PO BID 05/04/14 11/06/18 History Albuterol Nebulized [Ventolin 2.5 mg INHALATION RT-QID 11/06/18 11/06/18 History Nebulized] SILVER sulfADIAZINE Cream 1 applic TOPICAL BID 11/06/18 11/06/18 History [Silvadene 1% Cream] Allergies Allergy/AdvReac Type Severity Reaction Status Date / Time Penicillins Allergy Unknown Verified 10/24/14 10:52 Physical Exam Vitals: Vital Signs Temp Pulse Pulse Resp BP BP Pulse Ox 11/09/18 15:43 98.7 F 92 20 120/57 93 L 11/09/18 11:55 96 11/09/18 11:45 92 11/09/18 11:25 98.2 F 90 20 118/71 93 L 11/09/18 08:54 98.8 F 93 20 123/58 90 L 11/09/18 08:27 96 11/09/18 08:23 92 11/09/18 08:22 92 11/09/18 08:09 88 16 11/09/18 03:24 98.5 F 96 18 120/52 92 L 11/09/18 00:00 100 18 118/48 91 L 11/08/18 21:34 89 11/08/18 21:26 88 11/08/18 21:13 88 11/08/18 20:00 98.7 F 98 18 118/58 91 L 11/08/18 17:03 87 11/08/18 16:54 87 Intake and Output 11/09/18 11/09/18 11/09/18 06:59 14:59 22:59 Intake Total 240 180 Output Total 1450 Balance 240 180 -1450 Intake: Oral 240 180 Output: Urine 1450 Other: # Bowel Movements 0 Weight 145 kg Skin: Good color, texture, turgor. Both legs and feet are dressed with Nguyễn wraps. Toes with thickened skin. General: Obese build and comfortable appearance. Head: Normocephalic, atraumatic. Eyes: Symmetric. Pupils equal round. Ears: Symmetric. Hearing within normal limits. Mouth: Clear. Neck: Supple. Carotid without bruit. Cardiac: Regular rate and rhythm. Lungs: Clear anteriorly and posteriorly. Abdomen: Soft active nontender. Extremities: Normal tone. Neurological: Mental status: Alert, cooperative, pleasant. Cranial nerves: Symmetric facial tone and trapezius. Motor: Can actively elevate all limbs but legs are at best antigravity. Sensation: Intact throughout. DTRs: Symmetric and equal throughout. Mobility: Requires assistance for transfer from bed to Li chair. Results CBC & Chem 7: 11/07/18 10:24 11/07/18 10:24 Labs: Abnormal Lab Results - Last 24 Hours (Table) 11/07/18 11/07/18 11/08/18 Range/Units 07:30 11:38 20:09 ABG pCO2 103 H* 100 H* (35-45) mmHg ABG HCO3 42 H* 45 H* (21-25) mmol/L POC Glucose (mg/dL) 137 H (75-99) mg/dL 11/09/18 11/09/18 Range/Units 06:07 11:48 ABG pCO2 (35-45) mmHg ABG HCO3 (21-25) mmol/L POC Glucose (mg/dL) 128 H 108 H (75-99) mg/dL Assessment and Plan (1) Ulcers of both lower extremities Current Visit: Yes Status: Acute Code(s): L97.919 - NON-PRS CHRONIC ULC UNSP PRT OF R LOW LEG W UNSP SEVERITY; L97.929 - NON-PRS CHRONIC ULC UNSP PRT OF L LOW LEG W UNSP SEVERITY SNOMED Code(s): 13044695 Plan: Impression: 1. Medical debility. 2. Lower extremity cellulitis and ulcers. 3. Severe obesity, BMI greater than 40. 4. Acute respiratory failure, hypoxic and hypercapnic. Comments and plan: At this time PT and OT are ordered. I will follow therapies with yourself. Rehab prognosis currently guarded. Have discussed possible inpatient rehab with patient but he prefers SNF [facility].
[2018-11-09 17:09] LABS: Glucose,Whole Blood 148 mg/dL (75-99)
--- NOTE | 2018-11-09 17:11 | PN ---
PROGRESS NOTE DATE OF SERVICE: 11/08/2018. CHIEF COMPLAINT: Severe venostasis disease with cellulitis and secondary infection in both legs. The patient continues to use BiPAP but frequently takes it off. When he does, his pulse ox drops down to around 80%. He is not complaining of any chills, fever, chest pain, etc. PHYSICAL EXAMINATION: Breath sounds are diminished with poor respiratory excursions bilaterally, probably due to pickwickian syndrome. Cardiac exam demonstrates sinus tachycardia and the abdomen is protuberant and soft. Extremities are now wrapped with Nguyễn wraps. IMPRESSION: 1. Venostasis disease in the lower extremities, severe. 2. Open ulcers of the lower extremities. 3. Cellulitis of the lower extremities. 4. Respiratory failure. 5. Reactive airway disease. 6. Pickwickian syndrome. PLAN: Continue efforts with local wound care. Try to encourage the patient to use BiPAP. MMODL / IJN: [id number] /
[2018-11-09] MEDS: methylPREDNISolone SOD SUCCI 40 MG/ML 1 ML VIAL IV SCH (17:35)
--- NOTE | 2018-11-09 20:46 | PN ---
PROGRESS NOTE CHIEF COMPLAINT: Respiratory failure, COPD, pulmonary hypertension, venostasis disease with cellulitis and ulcers of the lower extremities. HISTORY OF PRESENT ILLNESS: This gentleman refuses to leave his BiPAP on consistently. Blood gases clinically deteriorate when he does not use it. He also seems confused for the first time today. PHYSICAL EXAMINATION: Breath sounds are extremely poor bilaterally. Cardiac exam demonstrates tachycardia. Abdomen is soft. Lower extremities are wrapped. IMPRESSION: 1. Acute respiratory failure. 2. Hypercarbia. 3. Pulmonary hypertension. 4. Chronic airway disease. 5. Venostasis disease of the lower extremities with cellulitis and extensive ulceration. 6. Delirium. PLAN: Continue supportive care. When the patient leaves his CPAP or BiPAP in place, his cognitive function improves. He will be a discharge management issue. ADARSH / MAXIMILIANON: [id number] /
[2018-11-09 21:23] LABS: Glucose,Whole Blood 120 mg/dL (75-99)
[2018-11-09] MEDS: MONTELUKAST 10 MG TAB PO SCH (21:30)
--- NOTE | 2018-11-10 00:28 | PN ---
PROGRESS NOTE DATE OF SERVICE: 11/09/2018. REASON FOR FOLLOWUP: Bilateral lower extremity venous stasis ulcer and cellulitis. INTERVAL HISTORY: The patient is currently afebrile. He has been breathing more comfortably. Denies having any chest pain, cough. No abdominal pain. No pain to the lower extremity. EXAMINATION: Blood pressure is 120/57 with a pulse of 92, temperature 98.7. He is 93% on room air. General description is a middle aged male lying in bed in no distress. Respiratory system: Unlabored breathing with one coarse breath sounds in the bases. No wheeze. Heart S1, S2. Regular rate and rhythm. ABDOMEN: Soft, no tenderness. Bilateral leg did have diffuse swelling and redness though has decreased with some superficial ulceration but no slough tissue. LABORATORY DATA: Hemoglobin 16.7, white count 6.6, BUN of 14, creatinine 0.69. DIAGNOSTIC IMPRESSION AND PLAN: Patient with bilateral lower extremity venous stasis ulcer with secondary cellulitis. Local wound care with Aquacel Silver dressing and nayan wrap. IV cefazolin will be transitioned to oral Keflex on discharge. Continue supportive care. MMODL / IJN: [id number] /
[2018-11-10] MEDS: methylPREDNISolone SOD SUCCI 40 MG/ML 1 ML VIAL IV SCH ×2 (00:47→09:20)
[2018-11-10] MEDS: ceFAZolin IN SWFI 2 GM/20 ML SYRINGE IVP SCH ×3 (00:47→17:38)
[2018-11-10] MEDS: HEPARIN SODIUM,PORCINE 5,000 UNIT/ML 1 ML VIAL SQ SCH ×3 (00:47→17:38)
[2018-11-10 06:21] LABS: Glucose,Whole Blood 173 mg/dL (75-99)
[2018-11-10] MEDS: INSULIN ASPART (NovoLOG) 100 UNIT/ML VIAL SQ SCH ×4 (06:47→21:14)
[2018-11-10] MEDS: FORMOTEROL FUMARATE 20 MCG/2 ML NEBU INHALATION SCH ×2 (07:49→19:21)
[2018-11-10] MEDS: IPRATROPIUM-ALBUTEROL 3 ML NEB INHALATION SCH ×4 (07:49→19:10)
[2018-11-10] MEDS: BUDESONIDE 0.5 MG/2 ML NEBU INHALATION SCH ×2 (07:49→19:10)
[2018-11-10] MEDS: SPIRONOLACTONE 25 MG TAB PO SCH ×2 (09:20→21:17)
[2018-11-10] MEDS: THEOPHYLLINE 24 HOUR 300 MG CAP.ER.24H PO SCH (09:20)
[2018-11-10] MEDS: LISINOPRIL 20 MG TAB PO SCH (09:20)
[2018-11-10] MEDS: VERAPAMIL 40 MG TAB PO SCH ×3 (09:20→21:17)
[2018-11-10] MEDS: FUROSEMIDE 80 MG TAB PO SCH ×2 (09:20→17:38)
--- NOTE | 2018-11-10 10:29 | P.PN ---
Subjective Progress Note Date: 11/10/18 11/10/2018: Patient seen and examined. Patient states he is feeling good today. His breathing is improving. The patient denies fevers and chills. He has no needs or complaints at this time. Objective - Vital Signs Vital signs: Vital Signs Temp 98.4 F 11/10/18 08:00 Pulse 88 11/10/18 08:15 Resp 20 11/10/18 08:00 BP 126/67 11/10/18 08:00 Pulse Ox 90 L 11/10/18 08:00 Intake & Output 11/09/18 11/10/18 11/10/18 18:59 06:59 18:59 Intake Total 602 240 Output Total 1450 2400 300 Balance -848 -2400 -60 Weight 143.3 kg Intake: Oral 602 240 Output: Urine 1450 2400 300 Uretheral (Foss) 2400 Other: Voiding Method Indwelling Catheter # Bowel Movements 1 1 - Exam Gen.: Patient is alert and oriented, Obese, no acute distress Cardiovascular: Regular rate and rhythm, S1/S2 Lungs: Diminished breath sounds bilaterally with scattered rhonchi Abdomen: Soft nontender nondistended positive bowel sounds Extremities: Edema with chronic venous stasis and ulcers as well as stasis dermatitis - Labs CBC & Chem 7: 11/07/18 10:24 11/07/18 10:24 Labs: Abnormal Lab Results - Last 24 Hours (Table) 11/07/18 11/07/18 11/09/18 Range/Units 07:30 11:38 11:48 ABG pCO2 103 H* 100 H* (35-45) mmHg ABG HCO3 42 H* 45 H* (21-25) mmol/L POC Glucose (mg/dL) 108 H (75-99) mg/dL 11/09/18 11/09/18 11/10/18 Range/Units 17:06 21:19 06:20 ABG pCO2 (35-45) mmHg ABG HCO3 (21-25) mmol/L POC Glucose (mg/dL) 148 H 120 H 173 H (75-99) mg/dL Assessment and Plan Assessment: Acute on chronic hypoxic and hypercapnic respiratory failure Acute exacerbation of severe COPD Acute exacerbation of asthma, severe persistent, uncontrolled Elevated IgE Respiratory acidosis Life long never smoker DAIANA/OHS - non compliant with PAP therapy Suspect chronic hypoxemia causing polycythemia Cor pulmonale and right heart failure secondary to above Acute exacerbation of CHF, unknown type Lower extremity cellulitis Mild PCM Continue bipap nightly and PRN, patient will need home bipap which is being arranged by case management PulLadonna jenkins Singulair, Perforomist ABX per ID Solumedrol taper Pending HP/allergy panel PT and OT
[2018-11-10 11:15] VITALS: BMI 44.0
[2018-11-10 11:25] LABS: Glucose,Whole Blood 104 mg/dL (75-99)
[2018-11-10] MEDS: predniSONE 20 MG TAB PO SCH (12:17)
[2018-11-10 13:54] LABS: Alpha 1 Anti-Trypsin 204 mg/dL (90 - 200)
[2018-11-10 14:43] LABS: Alt. alternata IgE Class CLASS I; Alternaria alternata IgE 0.61 kU/L (<0.35); Asperg. fumagatus IgE <0.35 kU/L (<0.35); Asperg. fumagatus IgE Class CLASS 0; Bermuda Grass IgE <0.35 kU/L (<0.35); Birch(Com.Silvr) IgE <0.35 kU/L (<0.35); Birch(Com.Silvr) IgE Class CLASS 0; Cat Epith & Dander IgE <0.35 kU/L (<0.35); Cat Epith & Dander IgE Class CLASS 0; Clad herbarum IgE <0.35 kU/L (<0.35); Cockroach IgE <0.35 kU/L (<0.35); Cottonwood IgE <0.35 kU/L (<0.35); Dermato. Pteronyssinus IgE <0.35 kU/L (<0.35); Dermato. farinae IgE <0.35 kU/L (<0.35); Dermato. farinae IgE Class CLASS 0; Dog Dander IgE <0.35 kU/L (<0.35); Elm IgE <0.35 kU/L (<0.35); Maple (Box Elder) IgE <0.35 kU/L (<0.35); Maple (Box Elder) IgE Class CLASS 0; Mountain Cedar IgE <0.35 kU/L (<0.35); Mountain Cedar IgE Class CLASS 0; Mouse Urine IgE Class CLASS 0; Nettle IgE <0.35 kU/L (<0.35); Nettle IgE Class CLASS 0; Oak IgE <0.35 kU/L (<0.35); Penicillium notatum IgE Class CLASS 0; Rough Marshelder IgE <0.35 kU/L (<0.35); Rough Marshelder IgE Class CLASS 0; Timothy Grass IgE <0.35 kU/L (<0.35); White Ash IgE Class CLASS 0
--- NOTE | 2018-11-10 16:02 | PN ---
PROGRESS NOTE DATE OF SERVICE: 11/10/2018 REASON FOR FOLLOWUP: Bilateral lower extremity venostasis ulcers and cellulitis. INTERVAL HISTORY: The patient is currently afebrile. He has been breathing comfortably. Denies having any chest pain, shortness of breath or cough. No abdominal pain or any worsening pain in the leg area. PHYSICAL EXAMINATION: Blood pressure 129/73 with a pulse of 75, temperature 98. He is 93% on 4 L nasal cannula. General description is a middle-aged male lying in bed in no distress. RESPIRATORY SYSTEM: Unlabored breathing. Clear to auscultation anteriorly. HEART: S1, S2. Regular rate and rhythm. ABDOMEN: Soft. No tenderness. LABS: No new labs have been obtained today. DIAGNOSTIC IMPRESSION AND PLAN: Patient with bilateral lower extremity venostasis ulcers and secondary cellulitis. The patient is currently on cefazolin. That will be transitioned to oral Keflex on discharge. Local wound care with Aquacel Silver dressing and Nguyễn wrap to keep the swelling down. Continue with supportive care. MMODL / IJN: [id number] /
[2018-11-10 16:18] LABS: Glucose,Whole Blood 106 mg/dL (75-99)
[2018-11-10 20:00] LABS: Glucose,Whole Blood 123 mg/dL (75-99)
[2018-11-10] MEDS: MONTELUKAST 10 MG TAB PO SCH (21:17)
[2018-11-11] MEDS: ceFAZolin IN SWFI 2 GM/20 ML SYRINGE IVP SCH ×3 (00:07→17:54)
[2018-11-11] MEDS: HEPARIN SODIUM,PORCINE 5,000 UNIT/ML 1 ML VIAL SQ SCH ×3 (00:07→17:17)
[2018-11-11 06:01] LABS: Glucose,Whole Blood 104 mg/dL (75-99)
[2018-11-11] MEDS: INSULIN ASPART (NovoLOG) 100 UNIT/ML VIAL SQ SCH ×4 (06:05→21:23)
[2018-11-11] MEDS: BUDESONIDE 0.5 MG/2 ML NEBU INHALATION SCH ×2 (07:06→21:09)
[2018-11-11] MEDS: IPRATROPIUM-ALBUTEROL 3 ML NEB INHALATION SCH ×4 (07:06→21:09)
[2018-11-11] MEDS: FORMOTEROL FUMARATE 20 MCG/2 ML NEBU INHALATION SCH ×2 (07:06→21:09)
[2018-11-11] MEDS: SPIRONOLACTONE 25 MG TAB PO SCH ×2 (08:42→21:26)
[2018-11-11] MEDS: THEOPHYLLINE 24 HOUR 300 MG CAP.ER.24H PO SCH (08:42)
[2018-11-11] MEDS: LISINOPRIL 20 MG TAB PO SCH (08:42)
[2018-11-11] MEDS: predniSONE 20 MG TAB PO SCH (08:42)
[2018-11-11] MEDS: VERAPAMIL 40 MG TAB PO SCH ×3 (08:43→21:26)
[2018-11-11] MEDS: FUROSEMIDE 80 MG TAB PO SCH ×2 (08:43→17:17)
[2018-11-11 12:00] LABS: Glucose,Whole Blood 116 mg/dL (75-99)
--- NOTE | 2018-11-11 12:24 | PN ---
PROGRESS NOTE DATE OF SERVICE: 11/11/2018 REASON FOR FOLLOWUP: Bilateral lower extremity venostasis ulcers and cellulitis. INTERVAL HISTORY: The patient is currently afebrile. He is breathing more comfortably. Denies having any chest pain. Occasional cough. No abdominal pain. He has pain to the leg area and no diarrhea with antibiotic therapy. PHYSICAL EXAMINATION: Blood pressure 141/64, pulse of 90, temperature 98.4. He is 95% on 2 L nasal cannula. General description is a middle-aged male, lying in bed in no distress. RESPIRATORY SYSTEM: Unlabored breathing, occasional wheeze. HEART: S1, S2. Regular rate and rhythm. LUNGS: Clear. No obvious drainage on the dressing. LABS: No new labs been obtained today. DIAGNOSTIC IMPRESSION AND PLAN: Patient with bilateral lower extremity venostasis ulcer with secondary cellulitis. Patient to continue with cefazolin 2 g q.8 in addition to the Aquacel Silver dressing and Nguyễn wrap to the legs. Once the patient respiratory status stabilized and he is ready to be discharged. Will be able to switch him to oral antibiotic to finish his course of therapy. Continue supportive care. MMODL / IJN: [id number] /
--- NOTE | 2018-11-11 14:27 | P.PN ---
Subjective Progress Note Date: 11/11/18 11/11/2017: Patient seen and examined. Patient states he did not use his BiPAP overnight because his tooth hurts. He is currently on 4 L nasal cannula with O2 saturation 94%. Plan is for possible discharge to rehab. Objective - Vital Signs Vital signs: Vital Signs Temp 98.8 F 11/11/18 11:50 Pulse 82 11/11/18 14:21 Resp 22 11/11/18 11:50 BP 127/62 11/11/18 11:50 Pulse Ox 90 L 11/11/18 11:50 Intake & Output 11/10/18 11/11/18 11/11/18 18:59 06:59 18:59 Intake Total 2364 10 380 Output Total 2825 1700 Balance -461 -1690 380 Weight 143.3 kg 143.6 kg Intake: IV 10 Invasive Line 1 10 Oral 2364 380 Output: Urine 2825 1700 Uretheral (Foss) 150 Other: Voiding Method Urinal Urinal # Voids 1 # Bowel Movements 1 - Exam Gen.: Patient is alert and oriented, Obese, no acute distress Cardiovascular: Regular rate and rhythm, S1/S2 Lungs: Diminished breath sounds bilaterally with scattered rhonchi Abdomen: Soft nontender nondistended positive bowel sounds Extremities: Edema with chronic venous stasis and ulcers as well as stasis dermatitis - Labs CBC & Chem 7: 11/07/18 10:24 11/07/18 10:24 Labs: Abnormal Lab Results - Last 24 Hours (Table) 11/07/18 11/10/18 11/10/18 Range/Units 10:25 16:16 19:58 POC Glucose (mg/dL) 106 H 123 H (75-99) mg/dL Alternar. alternata IgE 0.61 H (<0.35) kU/L 11/11/18 11/11/18 Range/Units 05:59 11:50 POC Glucose (mg/dL) 104 H 116 H (75-99) mg/dL Alternar. alternata IgE (<0.35) kU/L Assessment and Plan Assessment: Acute on chronic hypoxic and hypercapnic respiratory failure Acute exacerbation of severe COPD Acute exacerbation of asthma, severe persistent, uncontrolled Elevated IgE Respiratory acidosis Life long never smoker DAIANA/OHS - non compliant with PAP therapy Suspect chronic hypoxemia causing polycythemia Cor pulmonale and right heart failure secondary to above Acute exacerbation of CHF, unknown type Lower extremity cellulitis Mild PCM Continue bipap nightly and PRN, patient will need home bipap which is being arranged by case management Pulalice, [place], Merrickulastevan, Perforomist ABX per ID Solumedrol taper Pending HP/allergy panel PT and OT OK to DC from pulmonary standpoint. Bipap nightly and with naps, Pulmicort/Perforomist/Reginoonebs, Prednisone taper, Singulair, ABX per ID. Follow up in pulmonary office in 2-3 days.
--- NOTE | 2018-11-11 15:21 | PN ---
PROGRESS NOTE DATE OF SERVICE: 11/10/2018 CHIEF COMPLAINT: Venostasis disease, dermatitis and cellulitis of the lower extremities with congestive heart failure, reactive airway disease, pulmonary hypertension and the heart failure as well as rest respiratory failure and Pickwickian syndrome. HISTORY OF PRESENT ILLNESS: This gentleman is doing slightly better each day. He is being evaluated by Dr. Alcantara for rehab. He agrees that he needs to go somewhere for rehab. REVIEW OF SYSTEMS: He is still complaining of a lot of shortness of breath and not having a lot of discomfort in the legs. PHYSICAL EXAM: He remains pale and pasty in appearance. Skin is very dry. Chest demonstrates decreased breath sounds with rales, rhonchi and wheezing bilaterally. Cardiac exam demonstrates tachycardia and the abdomen is protuberant, soft and extremities are wrapped. IMPRESSION: 1. Severe venostasis disease, cellulitis and hypertrophic changes in the skin in the feet. 2. Acute respiratory failure. 3. Chronic obstructive pulmonary disease. 4. Reactive airway disease. 5. Pulmonary hypertension. 6. Congestive heart failure. 7. Obesity. PLAN: 1. Gradually increase activity. 2. Work on a discharge plan, and he will have to go for rehab. 3. Remove Foss catheter. MMODL / IJN: [id number] /
--- NOTE | 2018-11-11 15:24 | PN ---
PROGRESS NOTE DATE OF SERVICE: 11/11/2018. CHIEF COMPLAINT: Respiratory failure, cellulitis and ulceration of the lower legs. HISTORY OF PRESENT ILLNESS: This gentleman is slowly improving. He seems to be a little bit more mentally alert. Foss catheter has been removed and he is urinating. He has been evaluated by Rehab and it is believed that he is better candidate for a senior care. He may be approved for senior care soon. PHYSICAL EXAM: Breath sounds are extremely poor. There is scattered rales and rhonchi and expiratory wheezing. Cardiac exam demonstrates tachycardia and the abdomen is soft and protuberant, but no masses. Extremities are unchanged. IMPRESSION: 1. Severe venostasis disease with stasis dermatitis and ulcerations as well as cellulitis of the legs. 2. Congestive heart failure. 3. Pulmonary hypertension. 4. Reactive airway disease. 5. Chronic obstructive pulmonary disease. 6. Obesity. 7. Pickwickian syndrome. PLAN: Possibly in to senior care in the next day or 2. It is. There is word late today that there may be a bed available for him tomorrow. MMODL / IJN: [id number] /
[2018-11-11 15:39] VITALS: RESP 20
[2018-11-11 17:10] LABS: Glucose,Whole Blood 105 mg/dL (75-99)
--- NOTE | 2018-11-11 18:24 | P.CONS ---
History of Present Illness - Reason for Consult Consult date: 11/11/18 Polycythemia Requesting physician: Daquan Sevilla - Chief Complaint Shortness of breath - History of Present Illness Mr. Olivia is a very pleasant 58-year-old male patient of primary care physician Dr. Sevilla. Patient is currently admitted due to hypoxia. Patient is supposed to be using his CPAP for sleep apnea but states he has not been using it as it is in storage. Patient denies a history of polycythemia or knowledge of abnormal lab values. Patient is currently breathing comfortably, he states a good appetite, no chest pain, palpitations, difficulty swallowing, unusual indigestion or heartburn, abdominal pain, bloating, acute changes in bowel or bladder habits, he states that he struggles with his lower extremities- swelling, infection-he is breathing much better since admission, he feels more alert and oriented, he has no other complaints on a 14 point review of systems. Review of Systems 14 point review of systems is negative except as stated in HPI Past Medical History Past Medical History: Heart Failure, COPD, Hypertension, Osteoarthritis (OA), Sleep Apnea/CPAP/BIPAP Additional Past Medical History / Comment(s): OBESITY. CELLULITIS. does not have cpap History of Any Multi-Drug Resistant Organisms: None Reported Past Surgical History: Adenoidectomy, Tonsillectomy Past Anesthesia/Blood Transfusion Reactions: No Reported Reaction Past Psychological History: No Psychological Hx Reported Smoking Status: Never smoker Past Alcohol Use History: Rare Past Drug Use History: None Reported - Past Family History Sister(s) Family Medical History: Cancer Mother Family Medical History: Cancer Medications and Allergies Home Medications Medication Instructions Recorded Confirmed Type Albuterol Sulfate [Proair Hfa] 1 puff INHALATION RT-QID PRN 05/04/14 11/06/18 History Fluticasone/Salmeterol [Advair 1 puff INHALATION RT-BID 05/04/14 11/06/18 History 500-50 Diskus] Furosemide [Lasix] 80 mg PO BID 05/04/14 11/06/18 History Albuterol Nebulized [Ventolin 2.5 mg INHALATION RT-QID 11/06/18 11/06/18 History Nebulized] SILVER sulfADIAZINE Cream 1 applic TOPICAL BID 11/06/18 11/06/18 History [Silvadene 1% Cream] Allergies Allergy/AdvReac Type Severity Reaction Status Date / Time Penicillins Allergy Unknown Verified 10/24/14 10:52 Physical Exam Vitals: Vital Signs Temp Pulse Pulse Resp BP BP Pulse Ox 11/11/18 17:28 80 11/11/18 17:18 86 11/11/18 14:32 99.1 F 91 20 128/57 91 L 11/11/18 14:21 82 11/11/18 14:10 84 11/11/18 11:50 98.8 F 89 22 127/62 90 L 11/11/18 08:40 98.4 F 91 18 141/64 95 11/11/18 08:30 91 18 11/11/18 07:30 80 11/11/18 07:21 86 11/11/18 07:20 86 11/11/18 07:09 84 94 L 11/11/18 04:00 98.4 F 82 18 141/76 89 L 11/11/18 00:00 98.8 F 91 18 132/66 94 L 11/10/18 21:12 98.7 F 108 H 22 140/104 91 L 11/10/18 20:00 98.4 F 94 20 139/72 92 L 11/10/18 19:28 85 11/10/18 19:20 84 11/10/18 19:11 82 Intake and Output 11/11/18 11/11/18 11/11/18 06:59 14:59 22:59 Intake Total 380 Output Total 1150 650 Balance -1150 380 -650 Intake: Oral 380 Output: Urine 1150 650 Other: Voiding Method Urinal # Voids 2 # Bowel Movements 0 Weight 143.6 kg - Constitutional General appearance: cooperative, morbidly obese, no acute distress - EENT Eyes: anicteric sclerae, edentulous, EOMI ENT: normal oropharynx - Neck Neck: no lymphadenopathy - Respiratory Respiratory: bilateral: diminished - Cardiovascular Heart sounds: normal: S1, S2 Abnormal Heart Sounds: systolic murmur leg Peripheral Edema: bilateral: 2+ (Wrapped in Nguyễn bandages) - Gastrointestinal General gastrointestinal: no absent bowel sounds, no decreased bowel sounds, no distended, no hepatomegaly, no hyperactive bowel sounds, normal bowel sounds, no organomegaly, no rigid, no scaphoid, soft, no splenomegaly, no tenderness, no umbilical hernia, no ventral hernia - Integumentary Complexion is not thaddeus Integumentary: normal - Neurologic Neurologic: CNII-XII intact - Musculoskeletal Musculoskeletal: generalized weakness - Psychiatric Psychiatric: A&O x's 3, appropriate affect, intact judgment & insight Results CBC & Chem 7: 11/07/18 10:24 11/07/18 10:24 Labs: Abnormal Lab Results - Last 24 Hours (Table) 11/10/18 11/11/18 11/11/18 Range/Units 19:58 05:59 11:50 POC Glucose (mg/dL) 123 H 104 H 116 H (75-99) mg/dL 11/11/18 Range/Units 16:59 POC Glucose (mg/dL) 105 H (75-99) mg/dL Assessment and Plan (1) Polycythemia secondary to hypoxia Narrative/Plan: Suspect secondary polycythemia due to sleep apnea without treatment. Patient was severely hypoxic on admission, this is improving with treatment. Patient's hemoglobin is slightly down from yesterday, hematocrit is the same at 58. CBC recommends testing for primary polycythemia vera when a hemoglobin is greater than 16.5 and a male. Audie 2 mutation, Epogen level and iron studies have been requested. No need for phlebotomy at this time. Would recommend monitoring of CBC and treatment of apnea. Current Visit: Yes Status: Acute Priority: Medium Code(s): D75.1 - SECONDARY POLYCYTHEMIA SNOMED Code(s): 50685057
[2018-11-11 20:38] LABS: Glucose,Whole Blood 119 mg/dL (75-99)
[2018-11-11] MEDS: MONTELUKAST 10 MG TAB PO SCH (21:26)
[2018-11-12] MEDS: HEPARIN SODIUM,PORCINE 5,000 UNIT/ML 1 ML VIAL SQ SCH ×2 (00:17→10:06)
[2018-11-12] MEDS: ceFAZolin IN SWFI 2 GM/20 ML SYRINGE IVP SCH ×2 (00:17→11:58)
[2018-11-12 07:17] LABS: Glucose,Whole Blood 75 mg/dL (75-99)
[2018-11-12] MEDS: INSULIN ASPART (NovoLOG) 100 UNIT/ML VIAL SQ SCH ×2 (07:34→12:56)
[2018-11-12] MEDS: IPRATROPIUM-ALBUTEROL 3 ML NEB INHALATION SCH ×2 (07:55→11:02)
[2018-11-12] MEDS: BUDESONIDE 0.5 MG/2 ML NEBU INHALATION SCH (07:55)
[2018-11-12] MEDS: FORMOTEROL FUMARATE 20 MCG/2 ML NEBU INHALATION SCH (07:55)
[2018-11-12] MEDS: SPIRONOLACTONE 25 MG TAB PO SCH (10:05)
[2018-11-12] MEDS: VERAPAMIL 40 MG TAB PO SCH (10:05)
[2018-11-12] MEDS: FUROSEMIDE 80 MG TAB PO SCH (10:05)
[2018-11-12] MEDS: predniSONE 20 MG TAB PO SCH (10:06)
[2018-11-12] MEDS: LISINOPRIL 20 MG TAB PO SCH (10:06)
--- NOTE | 2018-11-12 11:55 | P.PN ---
Subjective Progress Note Date: 11/12/18 11/12/2018: Patient seen and examined. Patient is working with physical therapy and getting out of the bed to use the bathroom. He denies shortness of breath and chest pain. He did not use the bipap over night because he states his tooth hurts. The importance of wearing has been discussed multiple times. He states he will when his tooth is better. Objective - Vital Signs Vital signs: Vital Signs Temp 97.5 F L 11/12/18 05:35 Pulse 88 11/12/18 11:10 Resp 20 11/12/18 05:35 BP 156/64 11/12/18 05:35 Pulse Ox 93 L 11/12/18 05:35 Intake & Output 11/11/18 11/12/18 11/12/18 18:59 06:59 18:59 Intake Total 380 850 Output Total 650 2300 Balance -270 -1450 Intake: Oral 380 850 Output: Urine 650 2300 Other: Voiding Method Urinal # Voids 2 2 # Bowel Movements 0 - Exam Gen.: Patient is alert and oriented, Obese, no acute distress Cardiovascular: Regular rate and rhythm, S1/S2 Lungs: Diminished breath sounds bilaterally with scattered rhonchi Abdomen: Soft nontender nondistended positive bowel sounds Extremities: Edema with chronic venous stasis and ulcers as well as stasis dermatitis - Labs CBC & Chem 7: 11/07/18 10:24 11/07/18 10:24 Labs: Abnormal Lab Results - Last 24 Hours (Table) 11/11/18 11/11/18 11/11/18 Range/Units 11:50 16:59 20:33 POC Glucose (mg/dL) 116 H 105 H 119 H (75-99) mg/dL Assessment and Plan Assessment: Acute on chronic hypoxic and hypercapnic respiratory failure Acute exacerbation of severe COPD Acute exacerbation of asthma, severe persistent, uncontrolled Elevated IgE Respiratory acidosis Life long never smoker DAIANA/OHS - non compliant with PAP therapy Suspect chronic hypoxemia causing polycythemia Cor pulmonale and right heart failure secondary to above Acute exacerbation of CHF, unknown type Lower extremity cellulitis Mild PCM Continue bipap nightly and PRN, patient will need home bipap which is being arranged by case management Pulmicort, Ruddy Dougherty, Perforomist ABX per ID Solumedrol taper Pending HP/allergy panel PT and OT OK to DC from pulmonary standpoint. Bipap nightly and with naps, Pulmicort/Perforomist/Duonebs, Prednisone taper, Singulair, ABX per ID. Follow up in pulmonary office in 2-3 days.
--- NOTE | 2018-11-12 12:25 | DS ---
DISCHARGE SUMMARY CHIEF COMPLAINT: Extensive lower extremity edema with stasis dermatitis, cellulitis and hypertrophic skin on the feet and onychomycosis. HISTORY OF PRESENT ILLNESS AND PHYSICAL EXAM: Details of this man's history and physical can be found in the initial workup. LABORATORY STUDIES: While he was in a hospital he had laboratory studies, details of which can be found in the laboratory section of the chart. COURSE IN THE HOSPITAL: After admission he was placed on bedrest, started on intravenous fluids and seen in consultation by Vascular Surgery and Infectious Disease. He developed respiratory failure and was seen by Pulmonology. He was started on BiPAP. Initially, he refused this intermittently. He did develop some delirium, but as his hospital course continued, he continued to improve. Breathing became less labored. His Foss catheter was removed. He was kept in continuous dressings of Nguyễn wraps on the lower extremities. He agreed to go to rehab and arrangements were made for him to be moved on the . He will go to [facility]. FINAL DIAGNOSES: 1. Lower extremity venous insufficiency with stasis dermatitis, cellulitis and ulcers. 2. Congestive heart failure. 3. Pulmonary hypertension. 4. Pickwickian syndrome. 5. Chronic obstructive pulmonary disease. 6. Chronic persistent reactive airway disease. 7. Delirium. OPERATIONS: None. CONSULTATIONS: Intensive Medicine, Pulmonology, Infectious Disease and Vascular Surgery. This was dictated at 1157. MMODL / IJN: [id number] /
[2018-11-12 12:32] LABS: Glucose,Whole Blood 100 mg/dL (75-99)
[2018-11-12 12:50] VITALS: BP 118/64; PULSE 87; TEMP 97.8
[2018-11-12] MEDS ORDERED: CEPHALEXIN 500 MG CAP PO SCH (13:00)
[2018-11-12 17:15] LABS: Iron Saturation 50.9 (15.00-50.00)
--- NOTE | 2018-11-12 18:01 | PN ---
PROGRESS NOTE DATE OF SERVICE: 11/12/2018 REASON FOR FOLLOWUP: Bilateral lower extremity venostasis ulcers and cellulitis. INTERVAL HISTORY: The patient was seen on rounds early this afternoon. The patient has been afebrile. He is breathing more comfortably. Denies having any chest pain; occasional cough. No abdominal pain and no worsening pain in the leg area. PHYSICAL EXAMINATION: Blood pressure is 119/64, pulse of 87, temperature 97.8. He is 92% on 4 L nasal cannula. General description is a middle-aged male lying in bed in no distress. RESPIRATORY SYSTEM: Unlabored breathing. Clear to auscultation anteriorly. HEART: S1, S2. Regular rate and rhythm. ABDOMEN: Soft. No tenderness. Legs are currently wrapped up. No obvious drainage on the dressing. LABS: No new labs have been obtained today. DIAGNOSTIC IMPRESSION AND PLAN: Patient with bilateral lower extremity venostasis ulcers with secondary cellulitis. Patient has had overall improvement on cefazolin. He will finish therapy with a short course of oral Keflex and close outpatient followup. Continue supportive care. Local care to the legs with Aquacel Silver dressing followed by Nguyễn wraps to be changed q.48 hours. MMODL / IJN: [id number] /
[2018-11-13] MEDS ORDERED: methylPREDNISolone 4 MG TAB TAPER PO SCH (09:00)
== END 2018-11-12 14:54 | DRG 602 ==
LOC: 4SSUR 14:46 → UNDOADMIN 14:46 → 4SSUR 14:51 → 3SCARD 11-07 07:53 → 4MS4W 11-11 10:24
PROVIDERS: ADMIT Family Medicine; ATTEND Family Medicine
PROC: 5A09357 Assistance with Respiratory Ventilation, Less than 24 Consecutive Hours, Continuous Positive Airway Pressure (ICD-10-PCS; principal; 2018-11-07)
DX: L03.115 Cellulitis of right lower limb (principal); J96.21 Acute and chronic respiratory failure with hypoxia; J96.22 Acute and chronic respiratory failure with hypercapnia; I50.33 Acute on chronic diastolic (congestive) heart failure; I83.218 Varicose veins of right lower extremity with both ulcer of other part of lower extremity and inflammation; I83.228 Varicose veins of left lower extremity with both ulcer of other part of lower extremity and inflammation; L97.811 Non-pressure chronic ulcer of other part of right lower leg limited to breakdown of skin; L97.821 Non-pressure chronic ulcer of other part of left lower leg limited to breakdown of skin; E66.2 Morbid (severe) obesity with alveolar hypoventilation; Z68.41 Body mass index [BMI] 40.0-44.9, adult; J45.51 Severe persistent asthma with (acute) exacerbation; E44.1 Mild protein-calorie malnutrition; E87.2 Acidosis; J44.1 Chronic obstructive pulmonary disease with (acute) exacerbation; L03.116 Cellulitis of left lower limb; I27.29 Other secondary pulmonary hypertension; D75.1 Secondary polycythemia; I11.0 Hypertensive heart disease with heart failure; I50.811 Acute right heart failure; I27.81 Cor pulmonale (chronic); G47.33 Obstructive sleep apnea (adult) (pediatric); I44.7 Left bundle-branch block, unspecified; M19.90 Unspecified osteoarthritis, unspecified site; B35.1 Tinea unguium; L30.9 Dermatitis, unspecified; L85.9 Epidermal thickening, unspecified; R76.8 Other specified abnormal immunological findings in serum; Z79.51 Long term (current) use of inhaled steroids; Z79.899 Other long term (current) drug therapy; Z71.3 Dietary counseling and surveillance; Z91.19 Patient's noncompliance with other medical treatment and regimen; Z88.0 Allergy status to penicillin; Z80.9 Family history of malignant neoplasm, unspecified
CPT/HCPCS: 36600; 71045; 71046; 80053; 80198; 81003; 81270; 82103; 82104; 82668; 82728; 82785; 82805; 83036; 83540; 83550; 83605; 83880; 84439; 84443; 85025; 85379; 86001; 86003; 86606; 86609; 93005; 93306; 94640; 94660; 94760; 94762

== ENCOUNTER 2019-08-12 16:55 | Inpatient (IN) | payer MEDICARE, OTHER ==
[2019-08-12] MEDS ORDERED: VANCOMYCIN IV PER PHARMACY 1 EACH MISC MISCELLANE PRN (18:58)
[2019-08-12] MEDS ORDERED: CEFEPIME 2 GM in SODIUM CHLORIDE 0.9% 100 ML IVPB STA (18:59)
--- NOTE | 2019-08-12 19:01 | ED ---
General Adult HPI - General Chief complaint: Extremity Problem,Nontraumatic Stated complaint: Infection in legs Time Seen by Provider: 08/12/19 18:42 Source: patient Mode of arrival: ambulatory - History of Present Illness Initial comments: Dictation was produced using Reds10 dictation software. please excuse any grammatical, word or spelling errors. Chief Complaint: 59-year-old male presents with worsening bilateral lower extremity wound. History of Present Illness: A 59-year-old male who has past medical history of lymphedema bilaterally to the lower extremities. Patient states over the last several weeks his lower extremities have been more and more swollen and painful. States that the older has been becoming increasingly unbearable. States that he lives at a hospital himself. He reports that he can take care of himself however has difficulty taking off his shoes. He does not recall when his last time he took his shoes off. The ROS documented in this emergency department record has been reviewed and confirmed by me. Those systems with pertinent positive or negative responses have been documented in the HPI. All other systems are other negative and/or noncontributory. PHYSICAL EXAM: General Impression: Alert and oriented x3, not in acute distress HEENT: Normocephalic atraumatic, extra-ocular movements intact, pupils equal and reactive to light bilaterally, mucous membranes moist. Cardiovascular: Heart regular rate and rhythm, S1&S2 audible, no murmurs, rubs or gallops Chest: Lungs clear to auscultation bilaterally, no rhonchi, no wheeze, no rales Abdomen: Bowel sounds present, abdomen soft, non-tender, non-distended, no o rganomegaly Musculoskeletal: Pulses present and equal in all extremities, no peripheral edema Motor: no focal deficits noted Neurological: CN II-XII grossly intact, no focal motor or sensory deficits noted Skin: Nonpitting indurated bilateral lower extremity tissues with significantly malodorous discharge entirely encompassing bilateral lower legs. Psych: Normal affect and mood ED course: 59 y Old male presents with worsening bilateral lower extremity wounds signs upon arrival are within acceptable limits. Laboratory evaluation obtained. No leukocytosis. Metabolic panel is unremarkable. X-rays demonstrate bilateral soft tissue swelling. Given benign labs and stable vital signs, low clinical suspicion of necrotizing fasciitis. Patient treated with vancomycin and Zosyn for concerns of lower extremity infection given that the odor is so impressive. Discussed patient case with Dr. Sevilla was went except patient's care. Consultation was made to infectious disease. - Related Data Home Medications Medication Instructions Recorded Confirmed Albuterol Sulfate [Proair Hfa] 1 puff INHALATION RT-QID PRN 05/04/14 11/06/18 Fluticasone/Salmeterol [Advair 1 puff INHALATION RT-BID 05/04/14 11/06/18 500-50 Diskus] Furosemide [Lasix] 80 mg PO BID 05/04/14 11/06/18 Previous Rx's Medication Instructions Recorded Budesonide [Pulmicort] 0.5 mg INHALATION RT-BID #60 nebu 11/12/18 Cephalexin [Keflex] 500 mg PO QID #60 cap 11/12/18 Formoterol Fumarate [Perforomist] 20 mcg INHALATION RT-BID #60 nebu 11/12/18 Ipratropium-Albuterol Nebulize 3 ml INHALATION RT-QID #120 11/12/18 [Duoneb 0.5 mg-3 mg/3 ml Soln] ampul.neb Lisinopril [Zestril] 20 mg PO DAILY #100 tab 11/12/18 Montelukast [Singulair] 10 mg PO HS #100 tab 11/12/18 Spironolactone [Aldactone] 25 mg PO BID #100 tab 11/12/18 Verapamil [Isoptin] 40 mg PO TID #100 tab 11/12/18 methylPREDNISolone Dose Pack 24 mg PO DAILY #1 pack 11/12/18 [Medrol Dose Pack] Allergies Allergy/AdvReac Type Severity Reaction Status Date / Time Penicillins Allergy Unknown Verified 08/12/19 18:12 Review of Systems ROS Statement: Those systems with pertinent positive or pertinent negative responses have been documented in the HPI. ROS Other: All systems not noted in ROS Statement are negative. Past Medical History Past Medical History: Heart Failure, COPD, Hypertension, Osteoarthritis (OA), Sleep Apnea/CPAP/BIPAP Additional Past Medical History / Comment(s): OBESITY. CELLULITIS. does not have cpap History of Any Multi-Drug Resistant Organisms: None Reported Past Surgical History: Adenoidectomy, Tonsillectomy Past Anesthesia/Blood Transfusion Reactions: No Reported Reaction Past Psychological History: No Psychological Hx Reported Smoking Status: Never smoker Past Alcohol Use History: None Reported, Rare Past Drug Use History: None Reported - Past Family History Sister(s) Family Medical History: Cancer Mother Family Medical History: Cancer Course Vital Signs 08/12/19 18:08 Temperature 97.8 F Pulse Rate 88 Respiratory 17 Rate Blood Pressure 154/77 O2 Sat by Pulse 94 L Oximetry Medical Decision Making - Lab Data Result diagrams: 08/12/19 19:34 08/12/19 19:34 Lab Results 08/12/19 08/12/19 08/12/19 Range/Units 19:34 19:34 19:34 WBC 8.4 (3.8-10.6) k/uL RBC 5.48 (4.30-5.90) m/uL Hgb 14.9 (13.0-17.5) gm/dL Hct 46.5 (39.0-53.0) % MCV 84.9 (80.0-100.0) fL MCH 27.3 (25.0-35.0) pg MCHC 32.2 (31.0-37.0) g/dL RDW 16.5 H (11.5-15.5) % Plt Count 309 (150-450) k/uL Neutrophils % 64 % Lymphocytes % 24 % Monocytes % 6 % Eosinophils % 3 % Basophils % 0 % Neutrophils # 5.3 (1.3-7.7) k/uL Lymphocytes # 2.0 (1.0-4.8) k/uL Monocytes # 0.5 (0-1.0) k/uL Eosinophils # 0.2 (0-0.7) k/uL Basophils # 0.0 (0-0.2) k/uL Hypochromasia Slight Anisocytosis Slight PT 10.4 (9.0-12.0) sec INR 1.0 (<1.2) APTT 26.6 (22.0-30.0) sec Sodium 139 (137-145) mmol/L Potassium 4.6 (3.5-5.1) mmol/L Chloride 102 (98-107) mmol/L Carbon Dioxide 31 H (22-30) mmol/L Anion Gap 6 mmol/L BUN 13 (9-20) mg/dL Creatinine 0.67 (0.66-1.25) mg/dL Est GFR (CKD-EPI)AfAm >90 (>60 ml/min/1.73 sqM) Est GFR (CKD-EPI)NonAf >90 (>60 ml/min/1.73 sqM) Glucose 96 (74-99) mg/dL Calcium 9.6 (8.4-10.2) mg/dL Magnesium 1.9 (1.6-2.3) mg/dL Disposition Clinical Impression: Cellulitis Disposition: ADMITTED IP TO THIS HOSP Condition: Fair Referrals: Daquan Sevilla MD [Primary Care Provider] - 1-2 days Decision Time: 20:03
[2019-08-12] MEDS ORDERED: VANCOMYCIN 2,500 MG in SODIUM CHLORIDE 0.9% 500 ML 500 ML IVPB STA (19:04)
[2019-08-12 19:54] LABS: Anisocytosis Slight; Basophils % (A) 0 %; Eosinophils # (A) 0.2 k/uL (0-0.7); Eosinophils % (A) 3 %; HCT 46.5 % (39.0-53.0); HGB 14.9 gm/dL (13.0-17.5); Hypochromasia Slight; Lymphocytes % (A) 24 %; MCH 27.3 pg (25.0-35.0); MCHC 32.2 g/dL (31.0-37.0); MCV 84.9 fL (80.0-100.0); Mean Platelet Volume 7.6; Monocytes # (A) 0.5 k/uL (0-1.0); Monocytes % (A) 6 %; Neutrophils # (A) 5.3 k/uL (1.3-7.7); Neutrophils % (A) 64 %; Platelet Count 309 k/uL (150-450); RBC 5.48 m/uL (4.30-5.90); RDW 16.5 % (11.5-15.5); WBC 8.4 k/uL (3.8-10.6)
[2019-08-12 19:58] LABS: African American GFR (CKD) >90 (>60 ml/min/1.73 sqM); Anion Gap 6 mmol/L; Blood Urea Nitrogen 13 mg/dL (9-20); Calcium 9.6 mg/dL (8.4-10.2); Carbon Dioxide 31 mmol/L (22-30); Chloride 102 mmol/L (98-107); Glucose 96 mg/dL (74-99); Magnesium 1.9 mg/dL (1.6-2.3); Non-African American GFR(CKD) >90 (>60 ml/min/1.73 sqM); Potassium 4.6 mmol/L (3.5-5.1); Sodium 139 mmol/L (137-145)
[2019-08-12 20:02] LABS: Partial Thromboplastin Time 26.6 sec (22.0-30.0); Prothrombin Time 10.4 sec (9.0-12.0)
[2019-08-12] MEDS ORDERED: NALOXONE 0.4 MG/ML 1 ML VIAL IV PRN (20:03)
--- NOTE | 2019-08-12 20:24 | XR ---
EXAMINATION TYPE: XR tibia fibula bilateral DATE OF EXAM: 08/12/2019 COMPARISON: NONE HISTORY: Leg pain cellulitis TECHNIQUE: 4 views each tibia and fibula FINDINGS: There is subcutaneous edema around the lower legs. There is hypertrophic spurring of the fe moral and tibial condyles bilaterally. There is moderate bilateral hypertrophic spurring related to p lantar and Achilles calcaneal spur formation bilaterally. I see no focal bone destruction. There is b ilateral spurring and narrowing at the patellofemoral joints. IMPRESSION: Moderate osteoarthritis. Bilateral subcutaneous edema. No fracture seen.
[2019-08-13] MEDS: HEPARIN SODIUM,PORCINE 5,000 UNIT/ML 1 ML VIAL SQ SCH ×4 (00:55→23:57)
[2019-08-13] MEDS ORDERED: VANCOMYCIN 2,500 MG in SODIUM CHLORIDE 0.9% 500 ML 500 ML IVPB SCH (09:00)
[2019-08-13] MEDS: THEOPHYLLINE 24 HOUR 300 MG CAP.ER.24H PO SCH (12:59)
[2019-08-13] MEDS: FUROSEMIDE 80 MG TAB PO SCH ×2 (12:59→21:30)
[2019-08-13] MEDS: SPIRONOLACTONE 25 MG TAB PO SCH ×2 (12:59→21:30)
[2019-08-13] MEDS: LISINOPRIL 20 MG TAB PO SCH (12:59)
--- NOTE | 2019-08-13 14:15 | CONS ---
CONSULTATION DATE OF SERVICE: 08/13/2019 REASON FOR CONSULTATION: Bilateral lower extremity cellulitis. HISTORY OF PRESENT ILLNESS: The patient is a 59-year-old male with a past medical history significant for chronic swelling, lower extremity. This patient did have previous history of recurrent cellulitis. Patient has been brought to the ER at [facility] yesterday for evaluation of increasing swelling to the lower extremity. They have been weeping and becoming painful, pain in the navas. Complaining of pain to be more of a sharp to dull aching about 5 to 6/10 and no radiation with weeping edema and swelling and redness. The patient did have some chills but denies any high-grade fever. With these symptoms, the patient was evaluated by the ER on arrival to the ER. The patient has been afebrile. The patient white count has been normal. The patient did have x-rays of the tibia and fibula which did not show any fracture. It did show some bilateral subcutaneous edema. Patient was started on vancomycin, admitted to the hospital. Infectious Disease was consulted for further recommendations regarding antibiotic therapy. REVIEW OF SYSTEMS: Positive points have been mentioned in HPI. Rest of the systems are negative. PAST MEDICAL HISTORY: Heart failure, COPD, hypertension, osteoarthritis, sleep apnea, and lower extremity cellulitis. PAST SURGICAL HISTORY: Tonsillectomy, adenoidectomy. SOCIAL HISTORY: No history of smoking. Rarely drinks, no drug use. FAMILY HISTORY: Mother and sister with a history of cancer. ALLERGIES: To PENICILLIN, previous tolerated cephalosporins on a followup. No history of anaphylaxis. MEDICATIONS: Include the patient is currently on DuoNeb, Pulmicort, Lasix, heparin, Zestril, Singulair, Narcan, Aldactone, and vancomycin 2500 mg q.12 hours. PHYSICAL EXAMINATION: Blood pressure is 147/61 with a pulse of 87, temperature of 98, he is 97% on 4 L nasal cannula. General description is a middle-aged male up in the chair, in no distress. No tachypnea or accessory muscle for respiration use. HEENT: Examination shows no pallor or scleral icterus. Oral mucosa is dry. No pharyngeal erythema or thrush. NECK: Trachea central, no thyromegaly. LUNGS: Unlabored breathing, clear to auscultation anteriorly. No wheeze or crackle. HEART: S1, S2. Regular rate and rhythm. ABDOMEN: Soft, no tenderness. EXTREMITIES: Significant swelling, redness, some weeping edema. No purulent drainage. NEUROLOGICAL: Patient is awake, alert, oriented and affect normal. LABS: Hemoglobin is 14.8, white count 8.4, BUN of 13, creatinine 0.67. X-rays mentioned above showing subcutaneous edema but no fracture. DIAGNOSTIC IMPRESSION: 1. Patient with bilateral lower extremity cellulitis. The patient did have diffuse swelling and redness likely representing a streptococcal cellulitis. Clinically doubt a MRSA infection or a gram-negative. 2. Patient with PENICILLIN allergy with no history of anaphylaxis. PLAN: 1. Discontinue the vancomycin. 2. Start cefazolin 2 g. 3. Local care to the leg wound with open area with dry Aquacel Silver and followed by an Nguyễn wrap from just above to below the knee. 4. Will follow up on clinical condition and further adjust medication if needed. Thank you for this consultation. Will follow this patient along with you. MMODL / IJN: [id number] /
[2019-08-13] MEDS: IPRATROPIUM-ALBUTEROL 3 ML NEB INHALATION PRN ×2 (15:59→20:19)
--- NOTE | 2019-08-13 18:17 | HP ---
HISTORY AND PHYSICAL CHIEF COMPLAINT: Chronic venostasis disease of the lower extremities with open ulcerations, exudation and cellulitis. HISTORY OF PRESENT ILLNESS: This is another admission for this 59-year-old white male with severe chronic persistent asthma and lifelong history of dependent edema that he does not take care of. He came to the office a week or so ago. A foul odor was noticed and he refused to take his shoes off. We finally convinced him, and he was found to have extensive cellulitis with ulcers in the lower legs down in the ankles and feet. Toes were caked with feces and debris and he had onychomycosis. He was asked to go into the hospital that day, but he said he would go the next day and that he had to take care of some things. About a week later he called to be admitted. He was referred to the emergency room. REVIEW OF SYSTEMS: He has had no seizures, neurologic problems, changes in the vision or the hearing, chest pain, shortness of breath, heart disease, murmurs, rheumatic fever, abdominal pain, nausea, vomiting, hematemesis, melena, etc. He probably has fecal incontinence. He has had no renal failure, dysuria, frequency, urgency, etc. He is not diabetic. Past medical history, family history, and personal and social histories reveal he is ALLERGIC to PENICILLIN. It is not clear what medications he has been on, if any. He is supposed to be using a nebulizer with bronchodilator and he also supposed to be on Singulair, theophylline, lisinopril and Lasix. PHYSICAL EXAMINATION: Blood pressure 126/60, pulse of 88, respirations 20 and he is afebrile. In general he appeared to be overweight, pale and chronically ill in appearance. He has chronic conjunctivitis. Chest demonstrated loud inspiratory and expiratory wheezing with no significant rales or rhonchi. Cardiac exam demonstrated tachycardia and the abdomen was protuberant, soft and nontender. Extremities demonstrated venostasis with venostasis dermatitis and cellulitis from the knees down. He had multiple open areas around both lower legs and into the feet. Toes were unkempt and overgrown with onychomycosis. There was much foul-smelling feces and debris on the feet in between the toes. IMPRESSION: 1. Venostasis disease with cellulitis and ulcerations. 2. Chronic persistent asthma. 3. Obesity. PLAN: 1. Bed rest. 2. Clean legs and feet. 3. IV antibiotics. 4. Consult with [facility] Disease [facility] as well as Discharge Planning. ADARSH / CRISTOBAL: [id number] /
--- NOTE | 2019-08-13 18:41 | PN ---
PROGRESS NOTE CHIEF COMPLAINT: Venostasis disease with ulcers and cellulitis of the lower extremities. HISTORY OF PRESENT ILLNESS: This gentleman is not complaining of any discomfort. Feet have not been cleaned at this point and they are malodorous. PHYSICAL EXAMINATION: He has bilateral inspiratory and expiratory wheezing, which is normal for him and is chronic. Cardiac exam is normal. Abdomen is soft, nontender. Extremities are unchanged from admission. IMPRESSION: 1. Venostasis disease of the lower extremities. 2. Venostasis dermatitis of the lower extremities. 3. Multiple areas of cellulitis and ulceration/skin loss. PLAN: 1. Continue with IV fluids and antibiotics. 2. Wait for debridement by [facility]. 3. Discharge planning. MMODL / IJN: [id number] /
[2019-08-13] MEDS ORDERED: NON FORMULARY DRUG (Fluticasone/Salmeterol [Advair 500-50 Diskus] 1 PUFF) INHALATION SCH (20:00)
[2019-08-13] MEDS: FORMOTEROL FUMARATE 20 MCG/2 ML NEBU INHALATION SCH (20:19)
[2019-08-13] MEDS: BUDESONIDE 0.5 MG/2 ML NEBU INHALATION SCH (20:19)
[2019-08-13] MEDS: MONTELUKAST 10 MG TAB PO SCH (21:30)
[2019-08-14] MEDS: LISINOPRIL 20 MG TAB PO SCH (05:23)
[2019-08-14] MEDS: BUDESONIDE 0.5 MG/2 ML NEBU INHALATION SCH ×2 (08:16→21:33)
[2019-08-14] MEDS: FORMOTEROL FUMARATE 20 MCG/2 ML NEBU INHALATION SCH ×2 (08:17→21:33)
[2019-08-14] MEDS: THEOPHYLLINE 24 HOUR 300 MG CAP.ER.24H PO SCH (08:20)
[2019-08-14] MEDS: SPIRONOLACTONE 25 MG TAB PO SCH ×2 (08:20→22:06)
[2019-08-14] MEDS: FUROSEMIDE 80 MG TAB PO SCH ×2 (08:20→22:03)
[2019-08-14] MEDS: HEPARIN SODIUM,PORCINE 5,000 UNIT/ML 1 ML VIAL SQ SCH ×2 (08:20→15:19)
[2019-08-14 08:23] LABS: African American GFR (CKD) >90 (>60 ml/min/1.73 sqM); Non-African American GFR(CKD) >90 (>60 ml/min/1.73 sqM)
--- NOTE | 2019-08-14 13:51 | PN ---
PROGRESS NOTE CHIEF COMPLAINT: Venous stasis disease and cellulitis of the lower extremity and feet. HISTORY OF PRESENT ILLNESS: This gentleman is fairly comfortable. He is not having a lot of pain. Dressings have been applied. PHYSICAL EXAMINATION: He still has bilateral wheezing, which is chronic for him. Cardiac exam is normal. Abdomen is soft and protuberant. Lower legs are now wrapped. IMPRESSION: Venous stasis disease of lower extremities with stasis dermatitis and cellulitis. PLAN: Continue with frequent dressing changes, elevation and IV antibiotics. Eventually external compression will be added to his program with Nguyễn wraps and he will be able to go to a long term. MMODL / IJN: [id number] /
[2019-08-14] MEDS: IPRATROPIUM-ALBUTEROL 3 ML NEB INHALATION PRN ×2 (16:35→21:33)
[2019-08-14] MEDS: MONTELUKAST 10 MG TAB PO SCH (22:03)
--- NOTE | 2019-08-14 23:59 | PN ---
PROGRESS NOTE DATE OF SERVICE: 08/14/2019 REASON FOR FOLLOWUP: Bilateral lower extremity cellulitis. INTERVAL HISTORY: The patient is currently afebrile. Patient is breathing comfortably. Denies having any chest pain, shortness of breath or cough. The leg swelling and redness have slightly improved. No nausea, vomiting or diarrhea. PHYSICAL EXAMINATION: Blood pressure 113/51 with a pulse of 79, temperature of 98, he is 95% on room air. General description is a middle-aged male lying in bed in no distress. Respiratory system: Unlabored breathing, clear to auscultation anteriorly. Heart S1, S2. Regular rate and rhythm. Abdomen soft, no tenderness. LABS: Creatinine 0.71. DIAGNOSTIC IMPRESSION AND PLAN: Patient with bilateral lower extremity cellulitis and did have diffuse swelling redness, likely streptococcal disease shown some clinical improvement on IV cefazolin. Continue local wound care with Aquacel dressing and Nguyễn wrap and will monitor his clinical course closely. MMODL / IJN: [id number] /
[2019-08-15] MEDS: HEPARIN SODIUM,PORCINE 5,000 UNIT/ML 1 ML VIAL SQ SCH ×3 (00:11→15:42)
[2019-08-15] MEDS: SPIRONOLACTONE 25 MG TAB PO SCH ×2 (07:38→21:47)
[2019-08-15] MEDS: FUROSEMIDE 80 MG TAB PO SCH ×2 (07:38→21:47)
[2019-08-15] MEDS: THEOPHYLLINE 24 HOUR 300 MG CAP.ER.24H PO SCH (07:38)
[2019-08-15 09:19] LABS: African American GFR (CKD) >90 (>60 ml/min/1.73 sqM); Non-African American GFR(CKD) >90 (>60 ml/min/1.73 sqM)
[2019-08-15] MEDS: FORMOTEROL FUMARATE 20 MCG/2 ML NEBU INHALATION SCH ×2 (10:29→22:05)
[2019-08-15] MEDS: IPRATROPIUM-ALBUTEROL 3 ML NEB INHALATION PRN ×2 (10:29→22:05)
[2019-08-15] MEDS: BUDESONIDE 0.5 MG/2 ML NEBU INHALATION SCH ×2 (10:29→22:05)
--- NOTE | 2019-08-15 16:57 | PN ---
PROGRESS NOTE DATE OF SERVICE: 08/15/2019. REASON FOR FOLLOWUP: Bilateral lower extremity cellulitis. INTERVAL HISTORY: The patient is currently afebrile. The patient is breathing comfortably. Patient denies having any chest pain or cough. No nausea, vomiting, abdominal pain. Overall swelling and redness of leg has improved. PHYSICAL EXAMINATION: Blood pressure is 141/55 with a pulse of 65. Temperature 97.2. He is 97% on 4 L nasal cannula. General description is a middle-aged male lying in bed in no distress. Respiratory system: Unlabored breathing. Clear to auscultation anteriorly. Heart S1, S2. Regular rate and rhythm. ABDOMEN: Soft, no tenderness. Lower leg swelling and redness has improved. No drainage on the dressing. LABS: Creatinine 0.70. No CBC was done. Blood culture has been negative. DIAGNOSTIC IMPRESSION AND PLAN: Patient with bilateral lower extremity cellulitis in this patient who did have diffuse swelling and redness, likely streptococcal disease. The patient clinically improving on cefazolin. To continue along with local care with dry Aquacel Silver dressing and keep the area off the pressure. Continue supportive care. MMODL / IJN: [id number] /
--- NOTE | 2019-08-15 20:32 | PN ---
PROGRESS NOTE Venous stasis disease and cellulitis of the lower extremities. HISTORY OF PRESENT ILLNESS: This gentleman is doing a little bit better. His wounds are cleaning up with daily dressing changes and he can probably go to the intermediate anytime. PHYSICAL EXAMINATION: He is afebrile. Vial signs are normal. Chest is clear. Cardiac exam is normal. Abdomen is soft, nontender. The legs are dressed but edema is going down. IMPRESSION: Venous stasis disease and venous stasis ulcers with secondary cellulitis of the lower extremities. PLAN: Continue on current program. He will be discharged to intermediate once he is stable. MMODL / IJN: [id number] /
[2019-08-15] MEDS: MONTELUKAST 10 MG TAB PO SCH (21:47)
[2019-08-16] MEDS: HEPARIN SODIUM,PORCINE 5,000 UNIT/ML 1 ML VIAL SQ SCH ×4 (00:09→23:50)
[2019-08-16] MEDS: SPIRONOLACTONE 25 MG TAB PO SCH ×2 (07:50→21:52)
[2019-08-16] MEDS: FUROSEMIDE 80 MG TAB PO SCH ×2 (07:50→21:52)
[2019-08-16] MEDS: LISINOPRIL 20 MG TAB PO SCH (07:50)
[2019-08-16] MEDS: THEOPHYLLINE 24 HOUR 300 MG CAP.ER.24H PO SCH (07:50)
[2019-08-16] MEDS: IPRATROPIUM-ALBUTEROL 3 ML NEB INHALATION PRN ×2 (08:22→20:29)
[2019-08-16] MEDS: BUDESONIDE 0.5 MG/2 ML NEBU INHALATION SCH ×2 (08:22→20:29)
[2019-08-16] MEDS: FORMOTEROL FUMARATE 20 MCG/2 ML NEBU INHALATION SCH ×2 (08:22→20:29)
[2019-08-16 09:27] LABS: African American GFR (CKD) >90 (>60 ml/min/1.73 sqM); Non-African American GFR(CKD) >90 (>60 ml/min/1.73 sqM)
--- NOTE | 2019-08-16 15:25 | CDI ---
Documentation Clarification Form Date: 08/16/2019 03:07:49 PM From: Leticia James RN CCDS Admit Date: 08/13/2019 09:26:00 AM Patient Name: Anjel Olivia Visit Number: [id number] Discharge Date: ATTENTION: The Clinical Documentation Specialists (CDI) and [facility] Coding Staff appreciate your assistance in clarifying documentation. Please respond to the clarification below the line at the bottom and electronically sign. The CDI & [facility] Coding staff will review the response and follow-up if needed. Please note: Queries are made part of the Legal Health Record. If you have any questions, please contact the author of this message via ITS. Dr. Daquan Sevilla Heart Failure is documented in Infectious disease consult 08/13 under past medical history History/Risk Factors: 59-year-old male presents to the ED with bilateral lower extremity lymphedema with cellulitis. Over the past several weeks his lower extremities have been getting more swollen and painful Medical history per ID consult; Heart Failure; HTN; Clinical Indicators: VS/Pulse OX: 154/77 88 97.8 17 94% ra Echocardiogram Results: 11/07/18 Moderate concentric left ventricular hypertrophy. Overall left ventricular systolic function is normal with, an EF between 55-60% right ventricle is severely enlarged. Home medications listed in ED report Lasix 80mg po bid; Aldactone 25mg po bid; Verapamil 40mg po TID Treatment: 08/13 Lasix 80mg po BID CRISS; Lisinopril 20mg po daily; Aldactone 25mg po BID CRISS; In your professional opinion, can you please clarify the acuity and type of Heart Failure if known? * Chronic Diastolic Heart Failure: * Chronic Systolic & Diastolic Heart Failure * Heart Failure Ruled Out * Unable to Determine * Other, please specify (Last Revision: November 2017) See misc report dictation for response MTDD
--- NOTE | 2019-08-16 18:47 | PN ---
PROGRESS NOTE DATE OF SERVICE: 08/16/2019 REASON FOR FOLLOWUP: Bilateral lower extremity cellulitis. INTERVAL HISTORY: The patient is currently afebrile. The patient has been breathing comfortably. The patient denies having any chest pain, shortness of breath or cough. Overall swelling and redness in her leg have slightly improved and drainage has decreased. PHYSICAL EXAMINATION: Blood pressure 122/70 with a pulse of 89, temperature 98.3. He is 94% on 4 L nasal cannula. General description is an elderly male lying in bed in no distress. RESPIRATORY SYSTEM: Unlabored breathing. Clear to auscultation anteriorly. HEART: S1, S2. Regular rate and rhythm. ABDOMEN: Soft. No tenderness. LEGS: Swelling and redness have slightly decreased. No drainage. LABS: Creatinine 0.69. No other labs have been obtained. DIAGNOSTIC IMPRESSION AND PLAN: Patient with bilateral lower extremity cellulitis in this patient who has shown clinical improvement cefazolin with a plan for either transitioning over to oral Keflex or to continue with IV cefazolin 2 grams q.8 hours for another week through a midline. Discussed with the patient case manager discharge. Continue with supportive care. MMODL / IJN: [id number] /
--- NOTE | 2019-08-16 21:11 | PN ---
PROGRESS NOTE CHIEF COMPLAINT: Cellulitis of the lower extremities with stasis disease. HISTORY OF PRESENT ILLNESS: This gentleman remains fairly stable and treatment continues. We are awaiting word from the shelter regarding shelter placement. PHYSICAL EXAMINATION: Chest demonstrates his usual wheezing bilaterally on inspiration and expiration with tachycardia. Abdomen is soft. Lower extremities are dressed. All toes are viable at this time. IMPRESSION: Venostasis disease with cellulitis and ulcers of the lower extremities, ankle and feet. PLAN: Await shelter placement. MMODL / IJN: [id number] /
[2019-08-16] MEDS: MONTELUKAST 10 MG TAB PO SCH (21:52)
[2019-08-17] MEDS: IPRATROPIUM-ALBUTEROL 3 ML NEB INHALATION PRN ×2 (07:42→11:39)
[2019-08-17] MEDS: BUDESONIDE 0.5 MG/2 ML NEBU INHALATION SCH (07:42)
[2019-08-17] MEDS: FORMOTEROL FUMARATE 20 MCG/2 ML NEBU INHALATION SCH (07:42)
[2019-08-17] MEDS: HEPARIN SODIUM,PORCINE 5,000 UNIT/ML 1 ML VIAL SQ SCH (08:22)
[2019-08-17] MEDS: SPIRONOLACTONE 25 MG TAB PO SCH (08:22)
[2019-08-17] MEDS: LISINOPRIL 20 MG TAB PO SCH (08:23)
[2019-08-17] MEDS: FUROSEMIDE 80 MG TAB PO SCH (08:23)
[2019-08-17] MEDS: THEOPHYLLINE 24 HOUR 300 MG CAP.ER.24H PO SCH (08:23)
[2019-08-17 11:42] VITALS: RESP 18
--- NOTE | 2019-08-17 13:47 | PN ---
PROGRESS NOTE DATE OF SERVICE: 08/17/2019 CHIEF COMPLAINT: Cellulitis, lymphangitis, venostasis disease of the lower extremities. HISTORY OF PRESENT ILLNESS: This gentleman is doing a little bit better each day. The pain is improved. He has not had any significant increase in his asthma, shortness of breath. We are working on a discharge plan for a senior living. PHYSICAL EXAMINATION: Chest still demonstrates wheezing on inspiration and expiration bilaterally. The cardiac exam is normal. Legs remain about the same. IMPRESSION: 1. Venostasis disease with ulceration and secondary infection. 2. Chronic persistent asthma. PLAN: Continue with current program until senior living bed can be arranged. MMODL / IJN: [id number] /
--- NOTE | 2019-08-17 15:09 | DS ---
DISCHARGE SUMMARY CHIEF COMPLAINT: Severe venostasis disease with stasis dermatitis, ulcers, and secondary infection. HISTORY OF PRESENT ILLNESS AND PHYSICAL EXAM: Details of this man's history and physical can be found in the initial workup. LABORATORY STUDIES: While he was in the hospital, he had laboratory studies, details of which can be found in the laboratory section of his chart. COURSE IN HOSPITAL: After admission he was placed on bedrest, on intravenous fluids and the legs and feet were cleaned and dressed. He is seen and followed by Infectious Disease and started on IV antibiotics. With local wound care, he was improving, but he was unable to return home to live alone and arrangements were made for him to go to [facility]. He will be transferred there 08/17. FINAL DIAGNOSES: 1. Venostasis disease of the lower extremities. 2. Venostasis dermatitis of the lower extremities. 3. Venostasis ulcerations of the lower legs and feet with secondary infection. 4. Chronic persistent reactive airway disease. OPERATIONS: None. CONSULTATIONS: Infectious Disease. He is improved. MMODL / IJN: [id number] /
[2019-08-17 15:19] VITALS: BP 142/73; PULSE 89; TEMP 98.9
--- NOTE | 2019-08-17 16:18 | PN ---
PROGRESS NOTE DATE OF SERVICE: 08/17/2019 REASON FOR FOLLOWUP: Bilateral lower extremity cellulitis. INTERVAL HISTORY: The patient is currently afebrile. The patient has been breathing comfortably. The patient denies having any chest pain or any cough. No nausea, no vomiting, no abdominal pain or pain to the lower extremities. PHYSICAL EXAMINATION: Blood pressure 142/73 with a pulse of 89, temperature 98.9. He is 90% on 2 L nasal cannula. General description is a middle-aged male lying in bed in no distress. RESPIRATORY SYSTEM: Unlabored breathing. Clear to auscultation anteriorly. HEART: S1, S2. Regular rate and rhythm. ABDOMEN: Soft. No tenderness. LOWER EXTREMITIES: Overall swelling and redness have improved. There is no drainage. LABS: No new labs have been obtained today. DIAGNOSTIC IMPRESSION AND PLAN: Patient with bilateral lower extremity cellulitis. The patient did have diffuse swelling and redness, likely streptococcal disease. The patient is finishing therapy with IV cefazolin 2 grams q.8 hours for a week, as the patient is going to a senior living. Continue with supportive care. MMODL / IJN: [id number] /
--- NOTE | 2019-08-20 09:17 | MISC ---
MISCELLANOUS REPORT QUERY: Heart failure ruled out. MMODL / IJN: [id number] /
== END 2019-08-17 15:58 | DRG 603 ==
LOC: EC 16:55 → 6NMEDSUR 20:04 → INTOOBSV 20:04 → OBSVTOIN 08-13 09:26
PROVIDERS: ADMIT Family Medicine; ATTEND Family Medicine
PROC: 05HD33Z Insertion of Infusion Device into Right Cephalic Vein, Percutaneous Approach (ICD-10-PCS; principal; 2019-08-16 16:45)
DX: L03.115 Cellulitis of right lower limb (principal); L97.929 Non-pressure chronic ulcer of unspecified part of left lower leg with unspecified severity; L97.919 Non-pressure chronic ulcer of unspecified part of right lower leg with unspecified severity; Z68.41 Body mass index [BMI] 40.0-44.9, adult; L03.116 Cellulitis of left lower limb; I83.009 Varicose veins of unspecified lower extremity with ulcer of unspecified site; I87.2 Venous insufficiency (chronic) (peripheral); B35.1 Tinea unguium; E66.9 Obesity, unspecified; I87.8 Other specified disorders of veins; J44.9 Chronic obstructive pulmonary disease, unspecified; Z80.9 Family history of malignant neoplasm, unspecified; Z88.0 Allergy status to penicillin; G47.30 Sleep apnea, unspecified; M19.90 Unspecified osteoarthritis, unspecified site; Z60.2 Problems related to living alone; R15.9 Full incontinence of feces; B95.5 Unspecified streptococcus as the cause of diseases classified elsewhere; Z79.51 Long term (current) use of inhaled steroids; Z79.899 Other long term (current) drug therapy; I10 Essential (primary) hypertension
CPT/HCPCS: 36410; 36415; 80048; 82565; 83735; 85025; 85610; 85730; 87040; 94640; 94760; 96365; 99284

== ENCOUNTER 2020-03-17 10:57 | Observation (INO) | payer MEDICARE, OTHER ==
--- NOTE | 2020-03-17 11:14 | ED ---
General Adult HPI - General Chief complaint: Extremity Problem,Nontraumatic Stated complaint: Cellulitis Time Seen by Provider: 03/17/20 10:58 Source: patient, RN notes reviewed, old records reviewed Mode of arrival: EMS Limitations: no limitations - History of Present Illness Initial comments: Patient is a pleasant 59-year-old male [facility] of his right leg. Patient does have history of similar symptoms previously. Patient denies any pain with this. Patient denies fevers. Patient has been on Keflex without improvement of symptoms. - Related Data Home Medications Medication Instructions Recorded Confirmed Fluticasone/Salmeterol [Advair 1 puff INHALATION RT-BID@0800,199905/04/14 03/17/20 500-50 Diskus] Furosemide [Lasix] 80 mg PO BID 05/04/14 03/17/20 Albuterol Sulfate [Ventolin HFA] 2 puff INHALATION RT-Q4H PRN 08/12/19 03/17/20 Theophylline 12 Hour [[place]] 300 mg PO BID@0800,1600 08/12/19 03/17/20 Zafirlukast [Accolate] 20 mg PO BID@0800,1600 08/12/19 03/17/20 Budesonide [Pulmicort] 0.5 mg INHALATION RT-BID 03/17/20 03/17/20 Cephalexin [Keflex] 500 mg PO Q6H 03/17/20 03/17/20 Diff-Stat Probiotic 2 cap PO BID 03/17/20 03/17/20 Spironolactone [Aldactone] 25 mg PO BID@0800,1600 03/17/20 03/17/20 lisinopriL [Zestril] 20 mg PO DAILY@0800 03/17/20 03/17/20 Allergies Allergy/AdvReac Type Severity Reaction Status Date / Time Penicillins Allergy Unknown Verified 03/17/20 11:01 Review of Systems ROS Statement: Those systems with pertinent positive or pertinent negative responses have been documented in the HPI. ROS Other: All systems not noted in ROS Statement are negative. Constitutional: Denies: fever, chills Eyes: Denies: eye pain ENT: Denies: ear pain Respiratory: Denies: cough, dyspnea Cardiovascular: Denies: chest pain Endocrine: Denies: fatigue Gastrointestinal: Denies: abdominal pain Genitourinary: Denies: dysuria Musculoskeletal: Denies: back pain Skin: Reports: as per HPI, rash Neurological: Denies: weakness Past Medical History Past Medical History: Heart Failure, COPD, Hypertension, Osteoarthritis (OA), Sleep Apnea/CPAP/BIPAP Additional Past Medical History / Comment(s): OBESITY. CELLULITIS. chronic venous insufficiency. does not have cpap History of Any Multi-Drug Resistant Organisms: None Reported Past Surgical History: Adenoidectomy, Tonsillectomy Past Anesthesia/Blood Transfusion Reactions: No Reported Reaction Past Psychological History: No Psychological Hx Reported Past Alcohol Use History: None Reported, Rare Past Drug Use History: None Reported - Past Family History Sister(s) Family Medical History: Cancer Mother Family Medical History: Cancer General Exam Limitations: no limitations General appearance: alert, in no apparent distress Head exam: Present: normocephalic Eye exam: Present: normal appearance Neck exam: Present: normal inspection Respiratory exam: Present: normal lung sounds bilaterally Cardiovascular Exam: Present: regular rate, normal rhythm Expanded Peripheral pulses: 2+: Dorsalis Pedis (R) GI/Abdominal exam: Present: soft. Absent: tenderness Extremities exam: Present: pedal edema. Absent: calf tenderness Neurological exam: Present: alert Psychiatric exam: Present: normal affect, normal mood Skin exam: Present: erythema (Cellulitic change right foot through right mid thigh with warmth and mild tenderness.) Course Vital Signs 03/17/20 10:58 Temperature 97 F L Pulse Rate 74 Respiratory 18 Rate Blood Pressure 136/64 O2 Sat by Pulse 96 Oximetry Medical Decision Making - Medical Decision Making Patient reevaluated and updated. Case was discussed with Dr. Sevilla, who will admit his patient requests clindamycin and consult with infectious disease Disposition Clinical Impression: Cellulitis Disposition: ADMITTED IP TO THIS HOSP Is patient prescribed a controlled substance at d/c from ED?: No Referrals: Daquan Sevilla MD [Primary Care Provider] - 1-2 days Decision Time: 11:57
[2020-03-17 11:56] LABS: Anisocytosis Slight; Basophils % (A) 1 %; Eosinophils # (A) 0.1 k/uL (0-0.7); Eosinophils % (A) 1 %; HCT 39.8 % (39.0-53.0); HGB 12.4 gm/dL (13.0-17.5); Hypochromasia Slight; Lymphocytes % (A) 13 %; MCH 27.1 pg (25.0-35.0); MCHC 31.2 g/dL (31.0-37.0); MCV 86.9 fL (80.0-100.0); Mean Platelet Volume 7.2; Monocytes # (A) 0.5 k/uL (0-1.0); Monocytes % (A) 6 %; Neutrophils # (A) 6.2 k/uL (1.3-7.7); Neutrophils % (A) 77 %; Platelet Count 300 k/uL (150-450); RBC 4.58 m/uL (4.30-5.90); RDW 16.2 % (11.5-15.5); WBC 8.1 k/uL (3.8-10.6)
[2020-03-17] MEDS ORDERED: NALOXONE 0.4 MG/ML 1 ML VIAL IV PRN (11:57)
[2020-03-17] MEDS: SODIUM CHLORIDE 0.9% 1,000 ML IV SCH (12:04)
[2020-03-17] MEDS ORDERED: CLINDAMYCIN 600 MG in DEXTROSE 5% IN WATER 50 ML IVPB STA ×2 (12:04)
[2020-03-17 12:05] LABS: Partial Thromboplastin Time 25.9 sec (22.0-30.0)
[2020-03-17 12:10] LABS: ALT 14 U/L (4-49); AST 28 U/L (17-59); African American GFR (CKD) >90 (>60 ml/min/1.73 sqM); Albumin 3.1 g/dL (3.5-5.0); Alkaline Phosphatase 58 U/L (38-126); Blood Urea Nitrogen 11 mg/dL (9-20); Calcium 8.9 mg/dL (8.4-10.2); Chloride 89 mmol/L (98-107); Glucose 116 mg/dL (74-99); Non-African American GFR(CKD) >90 (>60 ml/min/1.73 sqM); Potassium 4.2 mmol/L (3.5-5.1); Sodium 134 mmol/L (137-145); Total Bilirubin 0.4 mg/dL (0.2-1.3); Total Protein 6.8 g/dL (6.3-8.2)
[2020-03-17 12:16] LABS: Anion Gap 4 mmol/L
[2020-03-17 12:22] LABS: Carbon Dioxide 41 mmol/L (22-30)
[2020-03-17] MEDS: CLINDAMYCIN 600 MG in DEXTROSE 5% IN WATER 50 ML IVPB SCH ×2 (18:07)
[2020-03-17] MEDS: BUDESONIDE 0.5 MG/2 ML NEBU INHALATION SCH (18:32)
[2020-03-17] MEDS: SYMBICORT 160-4.5 MCG INHALER INHALATION SCH (18:32)
[2020-03-17] MEDS: FUROSEMIDE 80 MG TAB PO SCH (20:32)
[2020-03-17] MEDS: LACTOBACILLUS ACIDOPH & BULGAR 1 EACH PACKET PO SCH (20:33)
[2020-03-17] MEDS: MONTELUKAST 10 MG TAB PO SCH (20:33)
--- NOTE | 2020-03-18 00:31 | P.CONS ---
History of Present Illness - Reason for Consult Consult date: 03/17/20 Right lower extremity cellulitis Requesting physician: Daquan Sevilla - Chief Complaint Right lower extremity swelling and redness x few days - History of Present Illness Patient is 59-year-old male with past medical history significant for chronic venous stasis of lower extremity cellulitis patient is currently a long-term resident patient has been sent to the ER for evaluation of right lower extremity swelling and redness that apparently has been getting worse for the last few days patient denies having any history of any trauma. Conjunctivae "more swelling and redness of the right leg denies significant pain to the leg currently with no open wound or any drainage denies high-grade fever or chills with these symptoms the patient was evaluated by the physician on the wound. The patient has been afebrile he did have a normal white count patient was started on clindamycin because of his penicillin ALLERGY infection disease was consulted for further management of antibiotic therapy Review of Systems Positive point has been mentioned in the HPI rest of the systems are negative Past Medical History Past Medical History: Heart Failure, COPD, Hypertension, Osteoarthritis (OA), Pneumonia, Sleep Apnea/CPAP/BIPAP, Vascular Disorder Additional Past Medical History / Comment(s): Pt denies hx of COPD as documented in previous medical record, pt states he was covid positive in Dec, 2019, DAIANA with Bipap, chronic venous insufficiency/past open wounds/ulcerations bilateral lower legs/bilateral lower leg cellulitis, dependent edema, bilateral feet o nchomycosis, hypothyroid, seasonal allergies. History of Any Multi-Drug Resistant Organisms: None Reported Past Surgical History: Adenoidectomy, Tonsillectomy Additional Past Surgical History / Comment(s): thyroidectomy Past Anesthesia/Blood Transfusion Reactions: No Reported Reaction Smoking Status: Never smoker - Past Family History Sister(s) Family Medical History: Cancer Additional Family Medical History / Comment(s): Pt cannot recall type of cancer. Mother Family Medical History: Cancer Additional Family Medical History / Comment(s): Lung cancer. Mother was a smoker. Father Family Medical History: No Reported History Additional Family Medical History / Comment(s): Father was healthy Medications and Allergies Home Medications Medication Instructions Recorded Confirmed Type Fluticasone/Salmeterol [Advair 1 puff INHALATION RT-BID@0800,199905/04/14 03/17/20 History 500-50 Diskus] Furosemide [Lasix] 80 mg PO BID 05/04/14 03/17/20 History Albuterol Sulfate [Ventolin HFA] 2 puff INHALATION RT-Q4H PRN 08/12/19 03/17/20 History Theophylline 12 Hour [[place]] 300 mg PO BID@0800,1600 08/12/19 03/17/20 Hist ory Zafirlukast [Accolate] 20 mg PO BID@0800,1600 08/12/19 03/17/20 History Budesonide [Pulmicort] 0.5 mg INHALATION RT-BID 03/17/20 03/17/20 History Cephalexin [Keflex] 500 mg PO Q6H 03/17/20 03/17/20 History Diff-Stat Probiotic 2 cap PO BID 03/17/20 03/17/20 History Spironolactone [Aldactone] 25 mg PO BID@0800,1600 03/17/20 03/17/20 History lisinopriL [Zestril] 20 mg PO DAILY@0800 03/17/20 03/17/20 History Allergies Allergy/AdvReac Type Severity Reaction Status Date / Time Penicillins Allergy Unknown Verified 03/17/20 11:01 Physical Exam Vitals: Vital Signs Temp Pulse Resp BP Pulse Ox 03/17/20 12:38 86 20 124/55 99 03/17/20 10:58 97 F L 74 18 136/64 96 Intake and Output 03/16/20 03/17/20 03/17/20 22:59 06:59 14:59 Intake Total 260 Balance 260 Intake: Intake, IV Titration 260 Amount Sodium Chloride 0.9% 1, 260 000 ml @ 130 mls/hr IV . Q7H42M [facility] Rx#:[id number] Other: Weight 149.685 kg GENERAL DESCRIPTION: Middle-aged male lying in bed, no distress. No tachypnea or accessory muscle of respiration use. HEENT: Shows Pallor , no scleral icterus. Oral mucous membrane is dry. No p haryngeal erythema or thrush NECK: Trachea central, no thyromegaly. LUNGS: Unlabored breathing. Clear to auscultation anteriorly. No wheeze or crackle. HEART: S1, S2, regular rate and rhythm. No loud murmur ABDOMEN: Soft, no tenderness , guarding or rigidity, no organomegaly EXTREMITIES: Diffuse swelling of both lower extremity> did have more redness or warmth wound or any drainage SKIN: No rash, no masses palpable. NEUROLOGICAL: The patient is awake, alert, oriented x3, mood and affect normal. Results CBC & Chem 7: 03/17/20 11:42 03/17/20 11:42 Labs: Abnormal Lab Results - Last 24 Hours (Table) 03/17/20 03/17/20 Range/Units 11:42 11:42 Hgb 12.4 L (13.0-17.5) gm/dL RDW 16.2 H (11.5-15.5) % Sodium 134 L (137-145) mmol/L Chloride 89 L (98-107) mmol/L Carbon Dioxide 41 H* (22-30) mmol/L Creatinine 0.51 L (0.66-1.25) mg/dL Glucose 116 H (74-99) mg/dL Albumin 3.1 L (3.5-5.0) g/dL Assessment and Plan Assessment: 1- patient with acute right lower extremity cellulitis in this patient did have and redness likely representing staphylococcal cellulitis clinically doubt MRSA or gram-negative infection 2- patient with penicillin ALLERGY that while in the number of antibiotic safe to use (1) Cellulitis of right leg Current Visit: Yes Status: Acute Code(s): L03.115 - CELLULITIS OF RIGHT LOWER LIMB SNOMED Code(s): 459680512 (2) Penicillin allergy Current Visit: Yes Status: Acute Code(s): Z88.0 - ALLERGY STATUS TO PENICILLIN SNOMED Code(s): 89486562 Plan: 1- marked the area of the redness 2- Nguyễn wrap to the right leg from just above the toe to below the knee 3- we'll add cefazolin 2 g every 8 hours We will follow on clinical condition and cultures to further adjust medication if needed Thank you for this consultation will follow this patient with you
[2020-03-18] MEDS: CLINDAMYCIN 600 MG in DEXTROSE 5% IN WATER 50 ML IVPB SCH ×8 (00:58→17:55)
[2020-03-18] MEDS: SYMBICORT 160-4.5 MCG INHALER INHALATION SCH ×2 (07:41→20:22)
[2020-03-18] MEDS: ALBUTEROL NEBULIZED 2.5 MG/3 ML INHALATION PRN ×4 (07:41→20:23)
[2020-03-18] MEDS: BUDESONIDE 0.5 MG/2 ML NEBU INHALATION SCH ×2 (07:41→20:17)
[2020-03-18] MEDS: SODIUM CHLORIDE 0.9% 1,000 ML IV SCH ×3 (08:32→16:52)
[2020-03-18] MEDS: THEOPHYLLINE 24 HOUR 300 MG CAP.ER.24H PO SCH (08:39)
[2020-03-18] MEDS: LACTOBACILLUS ACIDOPH & BULGAR 1 EACH PACKET PO SCH ×2 (08:39→20:45)
[2020-03-18] MEDS: FUROSEMIDE 80 MG TAB PO SCH ×2 (08:39→16:52)
[2020-03-18] MEDS: SPIRONOLACTONE 25 MG TAB PO SCH ×2 (08:39→16:52)
[2020-03-18] MEDS: lisinopriL 20 MG TAB PO SCH (08:39)
--- NOTE | 2020-03-18 14:17 | HP ---
HISTORY AND PHYSICAL CHIEF COMPLAINT: Cellulitis of leg. HISTORY OF PRESENT ILLNESS: This is another admission for this 59-year-old white male. He comes from [facility]. He has had a longstanding history of chronic stasis disease of lower extremities with stasis dermatitis and multiple infections of the lower legs and feet. He also has a history of chronic persistent reactive airway disease. He started to get pain, redness and swelling in the right calf up into the right thigh and was transferred to the hospital. REVIEW OF SYSTEMS: He has had no chills, neurologic problems, change in vision or hearing, cough, hemoptysis, chest pain, palpitations, heart disease, orthopnea, PND, abdominal pain, renal failure, etc. Past medical history, family history and personal and social histories are unremarkable otherwise. PHYSICAL EXAMINATION: Blood pressure is 128/81 with a pulse of 84, respirations of 32, and he is afebrile. In general, he appeared to be obese and chronically ill. Head, ears, eyes, nose, mouth, and throat were normal. The chest demonstrated bilateral inspiratory and expiratory wheezing. Cardiac exam demonstrated sinus rhythm. He had gynecomastia. Abdomen is soft, nontender without any masses or visceromegaly. Extremities demonstrated chronic hydrostatic lymphadenic edema of the lower legs with stasis dermatitis of both lower legs and feet. He had cellulitis in the right calf extending up posterior medially into the right thigh. Neurologically, he is intact. IMPRESSION: He is admitted to the hospital with a diagnoses of: 1. Recurrent cellulitis, right leg. 2. Chronic venous and lymphatic stasis disease both lower extremities. 3. Chronic stasis dermatitis of both lower extremities and feet. 4. Chronic persistent reactive airway disease. PLAN: 1. Bed rest. 2. IV fluids. 3. IV antibiotics. 4. Infectious Disease consult. MMODL / IJN: [id number] /
--- NOTE | 2020-03-18 14:26 | PN ---
PROGRESS NOTE DATE OF SERVICE: 03/18/2020 CHIEF COMPLAINT: Cellulitis lower extremities. HISTORY OF PRESENT ILLNESS: This gentleman is still having a significant amount of pain in the right lower leg. He has not had chills or fever. PHYSICAL EXAMINATION: Chest demonstrates wheezes and rales bilaterally. Cardiac exam is normal. Abdomen is soft, nontender. Both extremities are wrapped with Nguyễn wraps from the balls of the feet up to below the knees. IMPRESSIONS: 1. Cellulitis of the right leg. 2. Chronic stasis disease of lower extremities. 3. Chronic stasis dermatitis. 4. Chronic persistent reactive airway disease. PLAN: Continue with IV fluids, antibiotics, elevation and compression. MMODL / IJN: [id number] /
--- NOTE | 2020-03-18 17:08 | PN ---
PROGRESS NOTE DATE OF SERVICE: 03/18/2020 REASON FOR FOLLOWUP: Right lower extremity cellulitis. INTERVAL HISTORY: Patient is currently afebrile. Patient is breathing comfortably. The patient denies having any chest pain. No shortness of breath. No cough. No nausea, vomiting. No abdominal pain and no apparent discomfort to the right leg. PHYSICAL EXAMINATION: Blood pressure 105/41 with a pulse of 75, temperature 98.2. He is 92% on 3 L nasal cannula. General description is a middle-aged male lying in bed in no distress. Respiratory system: Unlabored breathing. Clear to auscultation anteriorly. Heart S1, S2. Regular rate and rhythm. Abdomen soft, no tenderness. Right leg swelling persists. Redness has slightly decreased. LABS: No new labs have been obtained today. Blood culture has been negative. DIAGNOSTIC IMPRESSION AND PLAN: Patient with acute right lower extremity cellulitis in this patient who did have diffuse swelling and redness likely streptococcal disease. Patient to continue cefazolin 2 g q.8h. Continue with Nguyễn wrap and monitor his clinical course closely. MMODL / IJN: [id number] /
[2020-03-18] MEDS: MONTELUKAST 10 MG TAB PO SCH (20:44)
[2020-03-19] MEDS: CLINDAMYCIN 600 MG in DEXTROSE 5% IN WATER 50 ML IVPB SCH ×8 (00:50→17:02)
[2020-03-19] MEDS: SODIUM CHLORIDE 0.9% 1,000 ML IV SCH ×3 (04:32→16:38)
[2020-03-19] MEDS ORDERED: ACETAMINOPHEN TAB 325 MG TAB PO STA (06:40)
[2020-03-19] MEDS: BUDESONIDE 0.5 MG/2 ML NEBU INHALATION SCH ×2 (07:36→19:17)
[2020-03-19] MEDS: SYMBICORT 160-4.5 MCG INHALER INHALATION SCH ×2 (07:36→19:17)
[2020-03-19] MEDS: ALBUTEROL NEBULIZED 2.5 MG/3 ML INHALATION PRN ×3 (07:36→19:17)
[2020-03-19] MEDS: THEOPHYLLINE 24 HOUR 300 MG CAP.ER.24H PO SCH (08:21)
[2020-03-19] MEDS: lisinopriL 20 MG TAB PO SCH (08:21)
[2020-03-19] MEDS: LACTOBACILLUS ACIDOPH & BULGAR 1 EACH PACKET PO SCH ×2 (08:21→20:28)
[2020-03-19] MEDS: SPIRONOLACTONE 25 MG TAB PO SCH ×2 (08:22→15:14)
[2020-03-19] MEDS: FUROSEMIDE 80 MG TAB PO SCH ×2 (08:22→15:14)
[2020-03-19] MEDS: MONTELUKAST 10 MG TAB PO SCH (20:28)
--- NOTE | 2020-03-19 23:38 | PN ---
PROGRESS NOTE DATE OF SERVICE: 03/19/2020 REASON FOR FOLLOWUP: Right lower extremity cellulitis. INTERVAL HISTORY: The patient is currently afebrile. The patient is breathing comfortably. Patient denies having any chest pain or shortness of breath. No nausea, no vomiting. No abdominal pain. Overall swelling and redness of right leg has decreased. PHYSICAL EXAMINATION: Blood pressure 102/50 with a pulse of 63, temperature 98. He is 94% on 3 L nasal cannula. General description is a middle-aged male lying in bed in no distress. RESPIRATORY SYSTEM: Unlabored breathing, clear to auscultation anteriorly. HEART: S1, S2. Regular rate and rhythm. ABDOMEN: Soft, no tenderness. Right leg swelling and redness has improved. LABS: No new labs have been obtained today. DIAGNOSTIC IMPRESSION AND PLAN: Patient with acute right lower extremity cellulitis in this patient who did have diffuse swelling and redness. Overall, clinical improvement on cefazolin. Plan to finish therapy with oral Keflex. Continue with Gnuyễn wrap to the leg to keep the swelling down. MMODL / IJN: [id number] /
[2020-03-20] MEDS: CLINDAMYCIN 600 MG in DEXTROSE 5% IN WATER 50 ML IVPB SCH ×8 (00:58→17:23)
[2020-03-20] MEDS: SODIUM CHLORIDE 0.9% 1,000 ML IV SCH ×3 (01:00→16:05)
--- NOTE | 2020-03-20 01:41 | PN ---
PROGRESS NOTE DATE OF SERVICE: 03/19/2020 CHIEF COMPLAINT: Cellulitis of the right lower extremity and venous stasis disease. HISTORY OF PRESENT ILLNESS: This gentleman is doing a little bit better. The cellulitic area is receding slightly. He has had no fever, chills, etc. He is still having some discomfort. He is [facility]. PHYSICAL EXAMINATION: Chest is wheezy. Cardiac exam is normal. Abdomen is protuberant. The area of cellulitis in the right lower leg has receded about an inch or 2 from yesterday. IMPRESSION: 1. Cellulitis of the right lower extremity. 2. Chronic venous stasis disease and stasis dermatitis. 3. Chronic obstructive lung disease and reactive airway disease. PLAN: Continue with elevation, IV fluids and IV antibiotics. MMODL / IJN: [id number] /
[2020-03-20] MEDS: BUDESONIDE 0.5 MG/2 ML NEBU INHALATION SCH ×2 (07:23→19:51)
[2020-03-20] MEDS: SYMBICORT 160-4.5 MCG INHALER INHALATION SCH (07:23)
[2020-03-20] MEDS: ALBUTEROL NEBULIZED 2.5 MG/3 ML INHALATION PRN ×4 (07:23→19:51)
[2020-03-20] MEDS: LACTOBACILLUS ACIDOPH & BULGAR 1 EACH PACKET PO SCH ×2 (08:26→21:08)
[2020-03-20] MEDS: lisinopriL 20 MG TAB PO SCH (08:26)
[2020-03-20] MEDS: THEOPHYLLINE 24 HOUR 300 MG CAP.ER.24H PO SCH (08:26)
[2020-03-20] MEDS: SPIRONOLACTONE 25 MG TAB PO SCH ×2 (08:26→16:02)
[2020-03-20] MEDS: FUROSEMIDE 80 MG TAB PO SCH ×2 (08:26→16:02)
--- NOTE | 2020-03-20 15:57 | PN ---
PROGRESS NOTE DATE OF SERVICE: 03/20/2020 REASON FOR FOLLOWUP: Right lower extremity cellulitis. INTERVAL HISTORY: The patient is currently afebrile. The patient is breathing comfortably. Denies having any chest pain or shortness of breath. No abdominal pain. Swelling and redness have decreased. PHYSICAL EXAMINATION: Blood pressure 114/71 with a pulse of 67, temperature 97.5. He is 96% on 3 L nasal cannula. General description is a middle-aged male lying in bed in no distress. RESPIRATORY SYSTEM: Unlabored breathing. Clear to auscultation anteriorly. HEART: S1, S2. Regular rate and rhythm. ABDOMEN: Soft. No tenderness. LABS: No new labs have been obtained today. DIAGNOSTIC IMPRESSION AND PLAN: Patient with acute right lower extremity cellulitis in this patient who seems to have shown overall clinical improvement on cefazolin. Finish therapy with oral Keflex 500 mg q.6 hours on a week along with Nguyễn wrap to the leg to keep the swelling down. Continue supportive care. MMODL / IJN: [id number] /
--- NOTE | 2020-03-20 17:50 | PN ---
PROGRESS NOTE CHIEF COMPLAINT: Cellulitis of the lower legs. HISTORY OF PRESENT ILLNESS: This gentleman is doing a little bit better. The areas of cellulitis are slowly receding. He has had no fever or chills. PHYSICAL EXAMINATION: Chest is wheezy. There are no significant rhonchi. Cardiac exam is normal. The abdomen is protuberant and soft. Extremities are about the same, but the areas of cellulitis are receding on both sides, and particularly on the right. IMPRESSION: 1. Cellulitis of the lower extremities. 2. Venostasis disease and stasis dermatitis. 3. Chronic airway disease. PLAN: Continue with IV fluids, antibiotics and elevation. We will also order a COVID-19 antibody titer because he had the virus several months ago when he was in the assisted. MMODL / IJN: [id number] /
[2020-03-20] MEDS: MONTELUKAST 10 MG TAB PO SCH (20:59)
[2020-03-21] MEDS: CLINDAMYCIN 600 MG in DEXTROSE 5% IN WATER 50 ML IVPB SCH ×6 (00:26→12:12)
[2020-03-21] MEDS: SODIUM CHLORIDE 0.9% 1,000 ML IV SCH ×2 (00:27→10:42)
[2020-03-21] MEDS: ALBUTEROL NEBULIZED 2.5 MG/3 ML INHALATION PRN ×2 (01:06→13:08)
[2020-03-21 08:32] VITALS: BP 122/59; TEMP 97.6
[2020-03-21] MEDS: SPIRONOLACTONE 25 MG TAB PO SCH (08:35)
[2020-03-21] MEDS: THEOPHYLLINE 24 HOUR 300 MG CAP.ER.24H PO SCH (08:35)
[2020-03-21] MEDS: FUROSEMIDE 80 MG TAB PO SCH (08:35)
[2020-03-21] MEDS: lisinopriL 20 MG TAB PO SCH (08:35)
[2020-03-21] MEDS: LACTOBACILLUS ACIDOPH & BULGAR 1 EACH PACKET PO SCH (08:36)
[2020-03-21] MEDS: BUDESONIDE 0.5 MG/2 ML NEBU INHALATION SCH (09:01)
[2020-03-21 09:09] VITALS: RESP 16
--- NOTE | 2020-03-21 12:55 | DS ---
DISCHARGE SUMMARY CHIEF COMPLAINT: Cellulitis of the lower extremities. HISTORY OF PRESENT ILLNESS AND PHYSICAL EXAM: Details of this man's history and physical can be found in the initial workup. LABORATORY STUDIES: While he was in the hospital he had laboratory studies, details of which can be found in the laboratory section of his chart. COURSE IN THE HOSPITAL: After admission, he was placed on bedrest and started on intravenous fluids and IV antibiotics. He was seen and followed by Infectious Disease. The cellulitis improved and it was felt [facility] He will go there on usual activity, diet, medications along with Keflex 500 mg q.i.d. He will be followed up in the prison. FINAL DIAGNOSES: 1. Cellulitis lower extremities. 2. Chronic venous and lymphatic stasis disease of lower extremities. 3. Chronic stasis dermatitis of the lower legs and feet. 4. Chronic persistent reactive airway disease. 5. Obesity. OPERATIONS: None. CONSULTATION: Infectious Disease. He is improved. MMODL / IJN: [id number] /
[2020-03-21] MEDS ORDERED: CEPHALEXIN 500 MG CAP PO SCH (13:00)
[2020-03-21 13:18] VITALS: PULSE 72
--- NOTE | 2020-03-22 12:14 | CDI ---
Documentation Clarification Form Date: 03/22/20 From: Bette Bravo Phone: If you have a question about this query, please contact Maribel Leggett, Block Sawyer at [phone] between 8am and 5pm. Admit Date: 03/20/20 Discharge Date: 03/21/20 Patient Name: TROY NAJERA Visit Number: [id number] ATTENTION: The Clinical Documentation Specialists (CDI) and [facility] Coding Staff appreciate your assistance in clarifying documentation. Please respond to the clarification below the line at the bottom and electronically sign. The CDI & [facility] Coding staff will review the response and follow-up if needed. Please note: Queries are made part of the Legal Health Record. If you have any questions, please contact the author of this message via ITS. Dear Dr. Daquan Sevilla, Heart failure is documented in the past medical history of ED Note and consult. History/Risk Factors: Bilateral cellulitis of legs, obesity w BMI of 41.9, COPD, chronic venous and lymphatic stasis of lower extremities with chronic stasis dermatitis, hx of COVID-19 Clinical Indicators: He started to get pain, redness and swelling in the right calf up into the right thigh and was transferred to the hospital. VS/Pulse OX: T-97, P-74, R-18, BP-136/64, O2-96 BNP: none 11/07/18 Echocardiogram Results: Overall left ventricular systolic function is normal with an EF between 55-60%. Chest X Ray: none Treatment: Lasix 80 MG BID In your professional opinion, can you please clarify the type of CHRONIC CHF if known? Systolic Heart Failure Diastolic Heart Failure Systolic & Diastolic Heart Failure Unable to Determine Other, please specify MTDD
--- NOTE | 2020-03-23 11:01 | MISC ---
MISCELLANOUS REPORT QUERY: Type of chronic - diastolic. MMODL / IJN: [id number] /
== END 2020-03-21 13:37 ==
LOC: EC 10:57 → 1SOBS 12:05 → INTOOBSV 03-20 08:08 → OBSVTOIN 03-20 08:08 → UNDODISIN 03-21 13:37
PROVIDERS: ADMIT Family Medicine; ATTEND Family Medicine
DX: L03.115 Cellulitis of right lower limb (principal); L03.116 Cellulitis of left lower limb; I87.2 Venous insufficiency (chronic) (peripheral); I89.8 Other specified noninfective disorders of lymphatic vessels and lymph nodes; J44.9 Chronic obstructive pulmonary disease, unspecified; E66.9 Obesity, unspecified; I11.0 Hypertensive heart disease with heart failure; I50.32 Chronic diastolic (congestive) heart failure; M19.90 Unspecified osteoarthritis, unspecified site; G47.33 Obstructive sleep apnea (adult) (pediatric); J30.2 Other seasonal allergic rhinitis; E89.0 Postprocedural hypothyroidism; Z20.828 Contact with and (suspected) exposure to other viral communicable diseases; Z79.51 Long term (current) use of inhaled steroids; Z79.899 Other long term (current) drug therapy; Z88.0 Allergy status to penicillin; Z68.41 Body mass index [BMI] 40.0-44.9, adult; Z87.2 Personal history of diseases of the skin and subcutaneous tissue; Z90.89 Acquired absence of other organs; Z87.01 Personal history of pneumonia (recurrent); Z86.19 Personal history of other infectious and parasitic diseases; Z80.9 Family history of malignant neoplasm, unspecified; Z80.1 Family history of malignant neoplasm of trachea, bronchus and lung; Z81.2 Family history of tobacco abuse and dependence
CPT/HCPCS: 96361 ×5; 96365; 96366 ×4; 96367; 99285; 36415; 94640 ×9; 97161; 97165; 80053; 83605; 80198; 85025; 85610; 85730; 87040; 86769; G0378 ×5; U0003; J0690 ×5; 96360

== ENCOUNTER 2020-05-01 03:42 | Inpatient (IN) | payer MEDICARE, OTHER ==
[2020-05-01 04:42] LABS: Anisocytosis Slight; Basophils % (A) 1 %; Eosinophils # (A) 0.3 k/uL (0-0.7); Eosinophils % (A) 4 %; HCT 40.5 % (39.0-53.0); HGB 12.4 gm/dL (13.0-17.5); Hypochromasia Moderate; Lymphocytes # (A) 1.4 k/uL (1.0-4.8); Lymphocytes % (A) 16 %; MCH 26.6 pg (25.0-35.0); MCHC 30.7 g/dL (31.0-37.0); MCV 86.7 fL (80.0-100.0); Mean Platelet Volume 7.1; Monocytes # (A) 0.5 k/uL (0-1.0); Monocytes % (A) 6 %; Neutrophils # (A) 5.8 k/uL (1.3-7.7); Neutrophils % (A) 69 %; Platelet Count 303 k/uL (150-450); RBC 4.67 m/uL (4.30-5.90); RDW 17.2 % (11.5-15.5); WBC 8.4 k/uL (3.8-10.6)
[2020-05-01 04:58] LABS: African American GFR (CKD) >90 (>60 ml/min/1.73 sqM); Anion Gap 3 mmol/L; Blood Urea Nitrogen 12 mg/dL (9-20); Calcium 9.1 mg/dL (8.4-10.2); Carbon Dioxide 31 mmol/L (22-30); Chloride 103 mmol/L (98-107); Glucose 142 mg/dL (74-99); Non-African American GFR(CKD) >90 (>60 ml/min/1.73 sqM); Potassium 4.2 mmol/L (3.5-5.1); Sodium 137 mmol/L (137-145)
--- NOTE | 2020-05-01 05:14 | XR ---
EXAMINATION TYPE: XR chest 2V DATE OF EXAM: 05/01/2020 COMPARISON: 11/08/2018 HISTORY: Short of breath TECHNIQUE: 2 views FINDINGS: Heart appears slightly enlarged. There is coarsening of the lung markings. There is no colt s heart failure. There is no evidence of pleural effusion. IMPRESSION: Mild cardiomegaly. Mild pulmonary fibrotic changes. No significant change compared to old exam.
--- NOTE | 2020-05-01 05:21 | ED ---
Lower Extremity Injury HPI - General Chief Complaint: Extremity Injury, Lower Stated Complaint: leg pain Time Seen by Provider: 05/01/20 03:50 Source: patient Mode of arrival: ambulatory Limitations: no limitations - History of Present Illness Initial Comments: This patient is a 60-year-old man here with bilateral lower extremity edema and weeping. He complains of having pain when he attempts to stand or ambulate. Pain is diffuse throughout the lower legs. He denies any acute injury. He has not noted fever or chills. He is having some underlying shortness of breath but gives history of COPD or fibrosis. MD Complaint: other (Bilateral lower extremity swelling) -: month(s) Improves With: rest Worsens With: weight bearing Other Symptoms: SOB - Related Data Home Medications Medication Instructions Recorded Confirmed Fluticasone/Salmeterol [Advair 1 puff INHALATION RT-BID@0800,199905/04/14 05/01/20 500-50 Diskus] Furosemide [Lasix] 80 mg PO BID 05/04/14 05/01/20 Albuterol Sulfate [Ventolin HFA] 2 puff INHALATION RT-Q4H PRN 08/12/19 05/01/20 Theophylline 12 Hour [[place]] 300 mg PO BID@0800,1600 08/12/19 05/01/20 Zafirlukast [Accolate] 20 mg PO BID@0800,1600 08/12/19 05/01/20 Budesonide [Pulmicort] 0.5 mg INHALATION RT-BID 03/17/20 05/01/20 Diff-Stat Probiotic 2 cap PO BID 03/17/20 05/01/20 Spironolactone [Aldactone] 25 mg PO BID@0800,1600 03/17/20 05/01/20 lisinopriL [Zestril] 20 mg PO DAILY@0800 03/17/20 05/01/20 Allergies Allergy/AdvReac Type Severity Reaction Status Date / Time Penicillins Allergy Unknown Verified 05/01/20 06:30 Review of Systems ROS Statement: Those systems with pertinent positive or pertinent negative responses have been documented in the HPI. ROS Other: All systems not noted in ROS Statement are negative. Constitutional: Denies: fever, chills, weakness Respiratory: Reports: dyspnea. Denies: cough, wheezes, hemoptysis Cardiovascular: Reports: dyspnea on exertion, edema. Denies: chest pain, palpitations, orthopnea Gastrointestinal: Denies: abdominal pain, vomiting Genitourinary: Denies: dysuria Musculoskeletal: Denies: back pain Skin: Reports: as per HPI, other (Weeping) Neurological: Denies: headache, weakness Past Medical History Past Medical History: Heart Failure, COPD, Hypertension, Osteoarthritis (OA), Pneumonia, Sleep Apnea/CPAP/BIPAP, Vascular Disorder Additional Past Medical History / Comment(s): Pt denies hx of COPD as documented in previous medical record, pt states he was covid positive in Dec, 2019, DAIANA with Bipap, chronic venous insufficiency/past open wounds/ulcerations bilateral lower legs/bilateral lower leg cellulitis, dependent edema, bilateral feet onchomycosis, hypothyroid, seasonal allergies. History of Any Multi-Drug Resistant Organisms: None Reported Past Surgical History: Adenoidectomy, Tonsillectomy Additional Past Surgical History / Comment(s): thyroidectomy Past Anesthesia/Blood Transfusion Reactions: No Reported Reaction Past Psychological History: No Psychological Hx Reported Smoking Status: Never smoker Past Alcohol Use History: None Reported Past Drug Use History: None Reported - Past Family History Sister(s) Family Medical History: Cancer Additional Family Medical History / Comment(s): Pt cannot recall type of cancer. Mother Family Medical History: Cancer Additional Family Medical History / Comment(s): Lung cancer. Mother was a smoker. Father Family Medical History: No Reported History Additional Family Medical History / Comment(s): Father was healthy General Exam Limitations: no limitations General appearance: alert, obese Head exam: Present: atraumatic, normocephalic Eye exam: Present: normal appearance. Absent: scleral icterus, conjunctival injection Neck exam: Present: normal inspection Respiratory exam: Present: normal lung sounds bilaterally, rales. Absent: wheezes, rhonchi, stridor Cardiovascular Exam: Present: regular rate, normal rhythm, normal heart sounds. Absent: systolic murmur, diastolic murmur, rubs, gallop GI/Abdominal exam: Present: soft. Absent: distended, tenderness, guarding, rebound, rigid, mass Extremities exam: Present: normal inspection, normal capillary refill. Absent: pedal edema, calf tenderness Back exam: Present: normal inspection. Absent: CVA tenderness (R), CVA tenderness (L) Neurological exam: Present: alert Skin exam: Present: warm, dry, normal color, other (Chronic lymphedema changes) Course Vital Signs 05/01/20 05/01/20 03:50 06:05 Temperature 98.3 F Pulse Rate 92 72 Respiratory 26 H 18 Rate Blood Pressure 162/73 139/78 O2 Sat by Pulse 89 L 99 Oximetry Medical Decision Making - Medical Decision Making Patient is 60-year-old man with what appears to be chronic lymphedema and also some underlying dyspnea due to pulmonary fibrosis. Patient be admitted to have VQ scan rule out acute PE and then 2 work on his social situation, he is currently homeless and not able to ambulate. He is requesting placement. - Lab Data Result diagrams: 05/01/20 04:35 05/01/20 04:35 Lab Results 05/01/20 05/01/20 05/01/20 Range/Units 04:35 04:35 04:35 WBC 8.4 (3.8-10.6) k/uL RBC 4.67 (4.30-5.90) m/uL Hgb 12.4 L (13.0-17.5) gm/dL Hct 40.5 (39.0-53.0) % MCV 86.7 (80.0-100.0) fL MCH 26.6 (25.0-35.0) pg MCHC 30.7 L (31.0-37.0) g/dL RDW 17.2 H (11.5-15.5) % Plt Count 303 (150-450) k/uL Neutrophils % 69 % Lymphocytes % 16 % Monocytes % 6 % Eosinophils % 4 % Basophils % 1 % Neutrophils # 5.8 (1.3-7.7) k/uL Lymphocytes # 1.4 (1.0-4.8) k/uL Monocytes # 0.5 (0-1.0) k/uL Eosinophils # 0.3 (0-0.7) k/uL Basophils # 0.0 (0-0.2) k/uL Hypochromasia Moderate Anisocytosis Slight Sodium 137 (137-145) mmol/L Potassium 4.2 (3.5-5.1) mmol/L Chloride 103 (98-107) mmol/L Carbon Dioxide 31 H (22-30) mmol/L Anion Gap 3 mmol/L BUN 12 (9-20) mg/dL Creatinine 0.58 L (0.66-1.25) mg/dL Est GFR (CKD-EPI)AfAm >90 (>60 ml/min/1.73 sqM) Est GFR (CKD-EPI)NonAf >90 (>60 ml/min/1.73 sqM) Glucose 142 H (74-99) mg/dL Calcium 9.1 (8.4-10.2) mg/dL NT-Pro-B Natriuret Pep 148 pg/mL Disposition Clinical Impression: Ulcers of both lower extremities, Pulmonary fibrosis Disposition: ADMITTED IP TO THIS HOSP Condition: Fair Is patient prescribed a controlled substance at d/c from ED?: No
[2020-05-01] MEDS ORDERED: methylPREDNISolone SOD SUCCI 125 MG/2 ML VIAL IV STA (05:47)
[2020-05-01] MEDS: methylPREDNISolone SOD SUCCI 125 MG/2 ML VIAL IV SCH ×4 (06:13→23:39)
[2020-05-01] MEDS ORDERED: ENOXAPARIN 150 MG/ML SYRINGE SQ STA (08:34)
[2020-05-01 11:45] LABS: Glucose,Whole Blood 139 mg/dL (75-99)
--- NOTE | 2020-05-01 14:22 | P.CNPUL ---
History of Present Illness Consult date: 05/01/20 Reason for consult: dyspnea History of present illness: 60-year-old male patient was hospitalized because of increased lower extremity edema and skin weeping due to increased swelling along with erythema. No reported or documented fever.. The patient has been having difficult mobility and gait and ambulation and the patient has been having lower extremity pain. No acute trauma. He also completed of some worsening shortness of breath as the patient is known to have COPD and patient has chronic right-sided heart failure as his echocardiogram from 2019 showed moderate concentric LVH, ejection fraction on the left being in the order of 55-60%, RV severely enlarged, RV septal wall is flattened consistent with right ventricular pressure overload, R a large, the IVC was dilated consistent with fluid overload, in addition to a PA pressure estimated to be around 50 mmHg. The chest x-ray from showing mild cardiomegaly. No significant interval change compared to the previous chest x- ray from 11/08/2018. The blood work shows a hemoglobin of 12.4 with a white cell count of 8.4. D-dimer is at 1.7. The patient serum bicarb is chronically elevated probably later to chronic hypercapnic respiratory failure. Current bicarb level is at 31. His body mass index is 46.2. The patient has been exposed to cold rhinovirus Covid 19 based on her progress antibody testing that was done on 03/17/2020. Home medication includes Lasix 80 mg by mouth twice a day. The patient has had chronic issues with wounds and lower extremities, and cellulitis. He does have chronic venous stasis and lymphedema involving the lower extremities. He also has obstructive sleep apnea. Does not utilize CPAP therapy. Review of Systems Constitutional: Reports chronic pain, Reports daytime sleepiness, Reports fa tigue, Reports weight gain Eyes: denies as per HPI, denies blurred vision, denies bulging eye, denies decreased vision, denies diplopia, denies discharge, denies dry eye, denies irritation, denies itching, denies pain, denies photophobia, denies loss of peripheral vision, denies loss of vision, denies tunnel vision/blind spots Ears: deny: decreased hearing, ear discharge, earache, tinnitus Ears, nose, mouth and throat: Reports as per HPI (History of chronic snoring) Breasts: absent: as per HPI, gynecomastia Cardiovascular: Reports decreased exercise tolerance, Reports dyspnea on exertion, Reports edema Respiratory: Reports dyspnea, Reports home oxygen, Reports sleep apnea, Reports snoring Gastrointestinal: Reports as per HPI Genitourinary: Reports as per HPI Musculoskeletal: Reports limitation of motion, Reports muscle weakness Musculoskeletal: bilateral: ankle swelling, absent: ankle pain, ankle stiffness Integumentary: Reports wounds Neurological: Reports as per HPI Psychiatric: Reports as per HPI Endocrine: Reports as per HPI Hematologic/Lymphatic: Reports as per HPI Allergic/Immunologic: Reports as per HPI 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, chronic lower extremity edema and wounds lower extremities with episodic cellulitis, chronic venous stasis, previous history of melo virus Covid 19 infection in December 2019 recovered with positive antibodies, bilateral feet onychomycosis, hypertension, COPD, diastolic heart failure with a preserved LV function and severe pulmonary hypertension along with right-sided heart failure, chronic right bundle branch block pattern on previous EKGs History of Any Multi-Drug Resistant Organisms: None Reported Past Surgical History: Adenoidectomy, Tonsillectomy Additional Past Surgical History / Comment(s): thyroidectomy Past Anesthesia/Blood Transfusion Reactions: No Reported Reaction Smoking Status: Never smoker - Past Family History Sister(s) Family Medical History: Cancer Additional Family Medical History / Comment(s): Pt cannot recall type of cancer. Mother Family Medical History: Cancer Additional Family Medical History / Comment(s): Lung cancer. Mother was a smoker. Father Family Medical History: No Reported History Additional Family Medical History / Comment(s): Father was healthy Medications and Allergies Home Medications Medication Instructions Recorded Confirmed Type RX: Fluticasone/Salmeterol [Advair 1 puff INHALATION RT-BID@0800,199905/04/14 05/01/20 History 500-50 Diskus] RX: Furosemide [Lasix] 80 mg PO BID 05/04/14 05/01/20 History RX: Albuterol Sulfate [Ventolin 2 puff INHALATION RT-Q4H PRN 08/12/19 05/01/20 History HFA] RX: Theophylline 12 Hour [[place]] 300 mg PO BID@0800,1600 08/12/19 05/01/20 History RX: Zafirlukast [Accolate] 20 mg PO BID@0800,1600 08/12/19 05/01/20 History Diff-Stat Probiotic 2 cap PO BID 03/17/20 05/01/20 History RX: Budesonide [Pulmicort] 0.5 mg INHALATION RT-BID 03/17/20 05/01/20 History RX: Spironolactone [Aldactone] 25 mg PO BID@0800,1600 03/17/20 05/01/20 History RX: lisinopriL [Zestril] 20 mg PO DAILY@0800 03/17/20 05/01/20 History Allergies Allergy/AdvReac Type Severity Reaction Status Date / Time Penicillins Allergy Unknown Verified 05/01/20 06:30 Physical Exam Vitals: Vital Signs Temp Pulse Pulse Pulse Resp BP BP 05/01/20 11:39 98.1 F 72 18 132/70 05/01/20 08:00 98.1 F 69 18 132/60 05/01/20 06:49 97.8 F 79 20 149/67 05/01/20 06:05 72 18 139/78 05/01/20 03:50 98.3 F 92 26 H 162/73 Pulse Ox 05/01/20 11:39 93 L 05/01/20 08:00 97 05/01/20 06:49 98 05/01/20 06:05 99 05/01/20 03:50 89 L Intake and Output 04/30/20 05/01/20 05/01/20 22:59 06:59 14:59 Intake Total 90 Output Total 400 Balance -310 Intake: Oral 90 Output: Urine 400 Other: Voiding Method Diaper # Bowel Movements 1 Weight 150.139 kg 150.139 kg Gen. appearance, comfortable no acute distress, morbidly obese with a BMI of 46.2 Head exam was generally normal. There was no scleral icterus or corneal arcus. Mucous membranes were moist. Neck was supple and without jugular venous distension, thyromegaly, or carotid bruits. Carotids were easily palpable bilaterally. There was no adenopathy. Mallampati class IV with significant crowding of posterior oropharynx Lung sounds are diminished bilaterally without any wheezes overall currently crackles. Heart sounds are regular with accentuation of the second heart sound secondary to his underlying pulmonary hypertension. Overall heart sounds are quite distant. No significant murmurs appreciated. Abdomen is obese soft nontender. Organs cannot be accurately palpated. No direct tenderness or rebound tensile guarding. Extremities revealed tonic edema lower extremities along with chronic venous stasis and there is ulceration as well as stasis dermatitis. The patient also has onychomycosis. Pulses are diminished and there is no digital clubbing. Neurologically, the patient is awake and alert and the patient does not have any focal neurological deficit. Cranial nerves are essentially intact. Skin as above. The patient has chronic venous stasis ulceration in the lower extremities more mainly in the posterior aspect of the lower extremities and there are also various amounts of slough and his skin base with some limited necrotic material with evidence of minimal amount of bleed. There is extensive erythema and cellulitis of the lower extremities bilaterally. This is extending between the ankle and under the knee. Results - Laboratory Findings CBC and BMP: 05/01/20 04:35 05/01/20 04:35 PT/INR, D-dimer D-Dimer 1.71 mg/L FEU (<0.60) H 05/01/20 11:59 Abnormal lab findings: Abnormal Labs 05/01/20 05/01/20 05/01/20 04:35 04:35 11:36 Hgb 12.4 L MCHC 30.7 L RDW 17.2 H D-Dimer Carbon Dioxide 31 H Creatinine 0.58 L Glucose 142 H POC Glucose (mg/dL) 139 H 05/01/20 11:59 Hgb MCHC RDW D-Dimer 1.71 H Carbon Dioxide Creatinine Glucose POC Glucose (mg/dL) - Diagnostic Findings Chest x-ray: image reviewed Assessment and Plan Plan: 1 chronic lower extremity edema/ulceration with interval worsening secondary to worsening in the swelling/cellulitis. The patient has chronic venous stasis and ulceration related to various comorbidities including right-sided heart failure. He has been taking diuretics at home in the form of Lasix 80 mg by mouth twice a day. 2 COPD/asthma currently inactive in stable 3 diastolic heart failure with severe pulmonary hypertension and evidence of right-sided heart failure with severe RA and RV dilatation and previous echocardiogram showing a PA of 50 4 obstructive sleep apnea nontolerant to CPAP therapy. The patient of is he has a component of obesity hypoventilation syndrome with a BMI of 46.2 and chronic metabolic alkalosis secondary to chronic hypercapnic respiratory failure 5 chronic hypoxic respiratory failure secondary to above 6 previous history of melo virus Covid 19 infection in December 2018, recovered with positive antibodies 7 chronic episodic several episodes of the lower extremities 8 hypothyroidism 9 osteoarthritis 10 hypertension Plan The Foss catheter Start the patient on Lasix drip 10 mg an hour Start The patient IV cefazolin regarding lower extremity cellulitis Monitor electrolytes Silvadene cream and Nguyễn wraps to lower extremities along with cellulose collagen dressing and Nguyễn wraps. We'll follow
[2020-05-01] MEDS: FUROSEMIDE 100 MG in SODIUM CHLORIDE 0.9% 90 ML IV SCH ×2 (15:27→23:48)
[2020-05-01] MEDS: THEOPHYLLINE 24 HOUR 300 MG CAP.ER.24H PO SCH (15:44)
[2020-05-01] MEDS: SPIRONOLACTONE 25 MG TAB PO SCH (15:44)
[2020-05-01] MEDS: IPRATROPIUM-ALBUTEROL 3 ML NEB INHALATION SCH ×3 (15:52→20:07)
[2020-05-01] MEDS ORDERED: FUROSEMIDE 80 MG TAB PO SCH (16:00)
--- NOTE | 2020-05-01 16:42 | P.GSCN ---
History of Present Illness Consult date: 05/01/20 Reason for Consult: Venous stasis disease Requesting physician: Daquan Sevilla History of present illness: This is a 60-year-old gentleman who follows on an outpatient basis with Dr. Sevilla. He has a previous medical history of chronic venous insufficiency and cellulitis with lymphedema and treatment in the wound care center in the past, Covid 19 in December 2019, chronic congestive heart failure, COPD, hypertension, osteoarthritis, obstructive sleep apnea without home CPAP use, and morbid obesity. He presented to [facility] emergency room with complaints of lower extremity edema with significant weeping and pain in his lower extremities. He denies any chest pain, new shortness of breath, or any other acute symptomatology. He is currently homeless and is asking for placement in extended care. He has been afebrile, vital signs remained stable and he is oxygenating well on 2 L nasal cannula. WBC 8.4, hemoglobin 12.4, creatinine 0.58, BNP 148, d-dimer 1.71. Chest x-ray demonstrated mild cardiomegaly without any acute process. V/Q scan has been ordered. The patient was admitted for evaluation and treatment with consultation placed to pulmonology, infectious disease, and Dr. Hoskins for venous stasis disease. Review of Systems Review of systems was completed and was negative except as noted - Cardiovascular Reports as per HPI, Reports leg edema - Integumentary Integumentary Comment(s): Bilateral lower extremity edema with weeping Reports as per HPI 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, chronic lower extremity edema and wounds lower extremities with episodic cellulitis, chronic venous stasis, previous history of melo virus Covid 19 infection in December 2019 recovered with positive antibodies, bilateral feet onychomycosis, hypertension, COPD, diastolic heart failure with a preserved LV function and severe pulmonary hypertension along with right-sided heart failure, chronic right bundle branch block pattern on previous EKGs History of Any Multi-Drug Resistant Organisms: None Reported Past Surgical History: Adenoidectomy, Tonsillectomy Additional Past Surgical History / Comment(s): thyroidectomy Past Anesthesia/Blood Transfusion Reactions: No Reported Reaction Past Psychological History: No Psychological Hx Reported Smoking Status: Never smoker Past Alcohol Use History: None Reported Past Drug Use History: None Reported - Past Family History Sister(s) Family Medical History: Cancer Additional Family Medical History / Comment(s): Pt cannot recall type of cancer. Mother Family Medical History: Cancer Additional Family Medical History / Comment(s): Lung cancer. Mother was a smoker. Father Family Medical History: No Reported History Additional Family Medical History / Comment(s): Father was healthy Medications and Allergies Home Medications Medication Instructions Recorded Confirmed Type Fluticasone/Salmeterol [Advair 1 puff INHALATION RT-BID@0800,199905/04/14 05/01/20 History 500-50 Diskus] Furosemide [Lasix] 80 mg PO BID 05/04/14 05/01/20 History Albuterol Sulfate [Ventolin HFA] 2 puff INHALATION RT-Q4H PRN 08/12/19 05/01/20 History Theophylline 12 Hour [[place]] 300 mg PO BID@0800,1600 08/12/19 05/01/20 History Zafirlukast [Accolate] 20 mg PO BID@0800,1600 08/12/19 05/01/20 History Budesonide [Pulmicort] 0.5 mg INHALATION RT-BID 03/17/20 05/01/20 History Diff-Stat Probiotic 2 cap PO BID 03/17/20 05/01/20 History Spironolactone [Aldactone] 25 mg PO BID@0800,1600 03/17/20 05/01/20 History lisinopriL [Zestril] 20 mg PO DAILY@0800 03/17/20 05/01/20 History Allergies Allergy/AdvReac Type Severity Reaction Status Date / Time Penicillins Allergy Unknown Verified 05/01/20 06:30 Surgical - Exam Vital Signs Temp Pulse Resp BP Pulse Ox 98.3 F 92 26 H 162/73 89 L 05/01/20 03:50 05/01/20 03:50 05/01/20 03:50 05/01/20 03:50 05/01/20 03:50 - General well developed, well nourished, no distress, no pain, chronically ill, obese - Eyes PERRL, normal ocular movement - ENT No teeth no hearing loss - Neck no masses, no bruits, trachea midline - Respiratory Lungs sounds diminished bilaterally. Respirations even, nonlabored. Currently on 2 L nasal cannula with oxygen saturation 93%. No chest wall deformities. No clubbing or cyanosis present. - Cardiovascular S1, S2 present. Regular rate and rhythm, sinus rhythm on telemetry. Bilateral lower extremity edema present. - Abdomen Abdomen: soft, non tender, bowel sounds - Genitourinary Foss present draining clear pale urine - Rectum Deferred - Integumentary Skin is warm and dry. Both lower extremities are reddened with weeping present. No current open wounds - Psychiatric oriented to time, oriented to person, oriented to place Results - Labs 05/01/20 04:35 05/01/20 04:35 Abnormal Lab Results - Last 24 Hours (Table) 05/01/20 05/01/20 05/01/20 Range/Units 04:35 04:35 11:36 Hgb 12.4 L (13.0-17.5) gm/dL MCHC 30.7 L (31.0-37.0) g/dL RDW 17.2 H (11.5-15.5) % D-Dimer (<0.60) mg/L FEU Carbon Dioxide 31 H (22-30) mmol/L Creatinine 0.58 L (0.66-1.25) mg/dL Glucose 142 H (74-99) mg/dL POC Glucose (mg/dL) 139 H (75-99) mg/dL 05/01/20 Range/Units 11:59 Hgb (13.0-17.5) gm/dL MCHC (31.0-37.0) g/dL RDW (11.5-15.5) % D-Dimer 1.71 H (<0.60) mg/L FEU Carbon Dioxide (22-30) mmol/L Creatinine (0.66-1.25) mg/dL Glucose (74-99) mg/dL POC Glucose (mg/dL) (75-99) mg/dL Diabetes panel 05/01/20 Range/Units 04:35 Sodium 137 (137-145) mmol/L Potassium 4.2 (3.5-5.1) mmol/L Chloride 103 (98-107) mmol/L Carbon Dioxide 31 H (22-30) mmol/L BUN 12 (9-20) mg/dL Creatinine 0.58 L (0.66-1.25) mg/dL Glucose 142 H (74-99) mg/dL Calcium 9.1 (8.4-10.2) mg/dL Calcium panel 05/01/20 Range/Units 04:35 Calcium 9.1 (8.4-10.2) mg/dL Pituitary panel 05/01/20 Range/Units 04:35 Sodium 137 (137-145) mmol/L Potassium 4.2 (3.5-5.1) mmol/L Chloride 103 (98-107) mmol/L Carbon Dioxide 31 H (22-30) mmol/L BUN 12 (9-20) mg/dL Creatinine 0.58 L (0.66-1.25) mg/dL Glucose 142 H (74-99) mg/dL Calcium 9.1 (8.4-10.2) mg/dL Adrenal panel 05/01/20 Range/Units 04:35 Sodium 137 (137-145) mmol/L Potassium 4.2 (3.5-5.1) mmol/L Chloride 103 (98-107) mmol/L Carbon Dioxide 31 H (22-30) mmol/L BUN 12 (9-20) mg/dL Creatinine 0.58 L (0.66-1.25) mg/dL Glucose 142 H (74-99) mg/dL Calcium 9.1 (8.4-10.2) mg/dL - Imaging Chest x-ray: report reviewed, image reviewed Assessment and Plan Assessment: 1. Chronic lower extremity edema with cellulitic changes and weeping present 2. Chronic venous insufficiency, treatment in the wound care center in the past 3. Chronic congestive heart failure 4. COPD/asthma, obstructive sleep apnea without home CPAP use 5. History of Covid 19 exposure in December 2019 6. History of hypertension 7. Osteoarthritis 8. Morbid obesity 9. Homelessness Plan: The patient was seen and examined at the bedside. Chart/diagnostics were reviewed. The case will be discussed with Dr. Hoskins in detail. At this time recommend absorptive silver dressings, Nguyễn wraps from toes to knees to bilateral lower extremities. Patient's legs should be elevated above the level of the heart at all times except when eating or toileting. We will need ECF placement at discharge. Antibiotics per infectious disease. IV continuous Lasix per pulmonology. Medical management of the comorbidities per primary care service. Patient may follow up in the wound care center weekly upon discharge, or may have a carpentry specialist see him at [facility] for continued management of his lower extremity chronic venous insufficiency. Thank you Dr. Sevilla for this consult. Please call us with any further questions Time with Patient: Greater than 30
[2020-05-01 16:55] LABS: Glucose,Whole Blood 132 mg/dL (75-99)
[2020-05-01 20:01] LABS: Glucose,Whole Blood 220 mg/dL (75-99)
[2020-05-01] MEDS: SYMBICORT 160-4.5 MCG INHALER INHALATION SCH (20:06)
[2020-05-01] MEDS: MONTELUKAST 10 MG TAB PO SCH (20:29)
[2020-05-01] MEDS: INSULIN ASPART (NovoLOG) 100 UNIT/ML VIAL SQ SCH (20:29)
--- NOTE | 2020-05-01 22:09 | P.CONS ---
History of Present Illness - Reason for Consult Consult date: 05/01/20 Bilateral lower extremity cellulitis Requesting physician: Daquan Sevilla - Chief Complaint Bilateral leg swelling and redness and weeping edema x few days - History of Present Illness Patient is 60-year-old male with past medical history significant for recurrent bilateral lower extremity cellulitis in this patient did have a chronic venous stasis ulcer of both lower extremity patient presented to [facility] ER with concern for increasing swelling redness and weeping edema to bilateral lower extremity that have been going on for last few days patient denies having any history of any trauma is complaining of some dull aching to sharp pain to the leg intensity 5-6 out of 10 and no radiation, the patient denies high-grade fever or chills and no fever was recorded in the ER. He did have a normal white count patient has been diagnosed with bilateral lower extremity cellulitis patient was admitted to the hospital he was started on cefazolin infection disease was consulted for further management of antibiotic therapy Review of Systems Positive point has been mentioned in the HPI rest of the systems are negative 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, chronic lower extremity edema and wounds lower extremities with episodic cellulitis, chronic venous stasis, previous history of melo virus Covid 19 infection in December 2019 recovered with positive antibodies, bilateral feet onychomycosis, hypertension, COPD, diastolic heart failure with a preserved LV function and severe pulmonary hypertension along with right-sided heart failure, chronic right bundle branch block pattern on previous EKGs History of Any Multi-Drug Resistant Organisms: None Reported Past Surgical History: Adenoidectomy, Tonsillectomy Additional Past Surgical History / Comment(s): thyroidectomy Past Anesthesia/Blood Transfusion Reactions: No Reported Reaction Smoking Status: Never smoker - Past Family History Sister(s) Family Medical History: Cancer Additional Family Medical History / Comment(s): Pt cannot recall type of cancer. Mother Family Medical History: Cancer Additional Family Medical History / Comment(s): Lung cancer. Mother was a smoker. Father Family Medical History: No Reported History Additional Family Medical History / Comment(s): Father was healthy Medications and Allergies Home Medications Medication Instructions Recorded Confirmed Type Fluticasone/Salmeterol [Advair 1 puff INHALATION RT-BID@0800,199905/04/14 05/01/20 History 500-50 Diskus] Furosemide [Lasix] 80 mg PO BID 05/04/14 05/01/20 History Albuterol Sulfate [Ventolin HFA] 2 puff INHALATION RT-Q4H PRN 08/12/19 05/01/20 History Theophylline 12 Hour [[place]] 300 mg PO BID@0800,1600 08/12/19 05/01/20 History Zafirlukast [Accolate] 20 mg PO BID@0800,1600 08/12/19 05/01/20 History Budesonide [Pulmicort] 0.5 mg INHALATION RT-BID 03/17/20 05/01/20 History Diff-Stat Probiotic 2 cap PO BID 03/17/20 05/01/20 History Spironolactone [Aldactone] 25 mg PO BID@0800,1600 03/17/20 05/01/20 History lisinopriL [Zestril] 20 mg PO DAILY@0800 03/17/20 05/01/20 History Allergies Allergy/AdvReac Type Severity Reaction Status Date / Time Penicillins Allergy Unknown Verified 05/01/20 06:30 Physical Exam Vitals: Vital Signs Temp Pulse Pulse Pulse Resp BP BP 05/01/20 16:03 80 05/01/20 15:54 80 05/01/20 11:39 98.1 F 72 18 132/70 05/01/20 08:00 98.1 F 69 18 132/60 05/01/20 06:49 97.8 F 79 20 149/67 05/01/20 06:05 72 18 139/78 05/01/20 03:50 98.3 F 92 26 H 162/73 Pulse Ox 05/01/20 16:03 05/01/20 15:54 05/01/20 11:39 93 L 05/01/20 08:00 97 05/01/20 06:49 98 05/01/20 06:05 99 05/01/20 03:50 89 L Intake and Output 05/01/20 05/01/20 05/01/20 06:59 14:59 22:59 Intake Total 90 Output Total 400 Balance -310 Intake: Oral 90 Output: Urine 400 Other: Voiding Method Diaper # Bowel Movements 1 Weight 150.139 kg 150.139 kg GENERAL DESCRIPTION: Middle-aged male lying in bed, no distress. No tachypnea or accessory muscle of respiration use. HEENT: Shows Pallor , no scleral icterus. Oral mucous membrane is dry. No pharyngeal erythema or thrush NECK: Trachea central, no thyromegaly. LUNGS: Unlabored breathing. Clear to auscultation anteriorly. No wheeze or crackle. HEART: S1, S2, regular rate and rhythm. No loud murmur ABDOMEN: Soft, no tenderness , guarding or rigidity, no organomegaly EXTREMITIES: Bilateral lower extremity with diffuse swelling redness and weeping edema slightly warm to touch. SKIN: No rash, no masses palpable. NEUROLOGICAL: The patient is awake, alert, oriented x3, mood and affect normal. Results CBC & Chem 7: 05/01/20 04:35 05/01/20 04:35 Labs: Abnormal Lab Results - Last 24 Hours (Table) 05/01/20 05/01/20 05/01/20 Range/Units 04:35 04:35 11:36 Hgb 12.4 L (13.0-17.5) gm/dL MCHC 30.7 L (31.0-37.0) g/dL RDW 17.2 H (11.5-15.5) % D-Dimer (<0.60) mg/L FEU Carbon Dioxide 31 H (22-30) mmol/L Creatinine 0.58 L (0.66-1.25) mg/dL Glucose 142 H (74-99) mg/dL POC Glucose (mg/dL) 139 H (75-99) mg/dL 05/01/20 Range/Units 11:59 Hgb (13.0-17.5) gm/dL MCHC (31.0-37.0) g/dL RDW (11.5-15.5) % D-Dimer 1.71 H (<0.60) mg/L FEU Carbon Dioxide (22-30) mmol/L Creatinine (0.66-1.25) mg/dL Glucose (74-99) mg/dL POC Glucose (mg/dL) (75-99) mg/dL Assessment and Plan Assessment: 1- patient with bilateral lower extremity cellulitis this patient did have a chronic swelling and venous stasis ulcer, with diffuse swelling and redness likely streptococcal cellulitis 2-patient with penicillin ALLERGY that would limit the number of antibiotic safe to use (1) Bilateral lower leg cellulitis Current Visit: Yes Status: Acute Code(s): L03.116 - CELLULITIS OF LEFT LOWER LIMB; L03.115 - CELLULITIS OF RIGHT LOWER LIMB SNOMED Code(s): 443195106 Plan: 1- cefazolin 2 g every 8 hours 2- Aquacel silver dressing to the open wound and bilateral leg followed by Nguyễn wrap from just above the toe to below the knee We will follow on clinical condition and cultures to further adjust medication if needed Thank you for this consultation will follow this patient with you Time with Patient: Greater than 30
[2020-05-02] MEDS: IPRATROPIUM-ALBUTEROL 3 ML NEB INHALATION PRN (02:26)
[2020-05-02 06:22] LABS: Glucose,Whole Blood 146 mg/dL (75-99)
[2020-05-02] MEDS: INSULIN ASPART (NovoLOG) 100 UNIT/ML VIAL SQ SCH ×4 (06:46→20:55)
[2020-05-02] MEDS: methylPREDNISolone SOD SUCCI 125 MG/2 ML VIAL IV SCH ×3 (06:46→17:25)
[2020-05-02] MEDS: IPRATROPIUM-ALBUTEROL 3 ML NEB INHALATION SCH ×4 (08:08→20:06)
[2020-05-02] MEDS: SYMBICORT 160-4.5 MCG INHALER INHALATION SCH ×2 (08:08→20:06)
[2020-05-02] MEDS: THEOPHYLLINE 24 HOUR 300 MG CAP.ER.24H PO SCH (08:27)
[2020-05-02] MEDS: SPIRONOLACTONE 25 MG TAB PO SCH ×2 (08:27→15:26)
[2020-05-02] MEDS: lisinopriL 20 MG TAB PO SCH (08:27)
--- NOTE | 2020-05-02 09:00 | ECHOF ---
Referral Reason:CHF, COPD MEASUREMENTS -------- HEIGHT: 180.3 cm WEIGHT: 150.1 kg BP: 132/70 RVIDd: 4.1 cm (< 3.3) IVSd: 1.5 cm (0.6 - 1.1) LVIDd: 6.2 cm (3.9 - 5.3) LVPWd: 1.3 cm (0.6 - 1.1) IVSs: 1.7 cm LVIDs: 4.4 cm LVPWs: 1.8 cm MV E Jason: 0.99 m/s MV DecT: 193 ms MV A Jason: 0.75 m/s MV E/A Ratio: 1.32 AV maxP.05 mmHg AV meanP.98 mmHg RAP: 5.00 mmHg RVSP: 48.13 mmHg FINDINGS -------- This was a technically difficult study with suboptimal views. The left ventricular size is normal. There is moderate concentric left ventricular hypertrophy. O verall left ventricular systolic function is normal with, an EF between 55 - 60 %. The right ventricle is moderately enlarged. The left atrium was not well visualized. The right atrium was not well visualized. 5.0mg of Lumason was utilized for enhancement of images Interatrial and interventricular septum intact. The aortic valve was not well visualized. There is no evidence of aortic regurgitation. There is mild aortic stenosis present. Peak/mean gradient across the Aortic Valve is 23.05mmHg / 13.98mmHg. The mitral valve was not well visualized. Moderate tricuspid regurgitation present. There is moderate pulmonary hypertension. The right aram tricular systolic pressure, as measured by Doppler, is 48.13mmHg. The pulmonic valve was not well visualized. IVC Not well visulized. There is no pericardial effusion. CONCLUSIONS -------- 1. There is moderate concentric left ventricular hypertrophy. 2. Overall left ventricular systolic function is normal with, an EF between 55 - 60 %. 3. The right ventricle is moderately enlarged. 4. There is mild aortic stenosis present. 5. Peak/mean gradient across the Aortic Valve is 23.05mmHg / 13.98mmHg. 6. Moderate tricuspid regurgitation present. 7. There is moderate pulmonary hypertension. 8. The right ventricular systolic pressure, as measured by Doppler, is 48.13mmHg. X RAY OPERATOR: Beatriz Anand, MARAHCS
[2020-05-02] MEDS: FUROSEMIDE 100 MG in SODIUM CHLORIDE 0.9% 90 ML IV SCH ×2 (09:34→20:55)
[2020-05-02 11:47] LABS: Glucose,Whole Blood 134 mg/dL (75-99)
--- NOTE | 2020-05-02 12:28 | P.PN ---
Subjective Progress Note Date: 05/02/20 Principal diagnosis: Chronic lower extremity edema/ulceration with interval worsening secondary to worsening in the swelling and cellulitis, severe pulmonary hypertension, diastolic heart failure 60-year-old male patient was hospitalized because of increased lower extremity edema and skin weeping due to increased swelling along with erythema. No reported or documented fever.. The patient has been having difficult mobility and gait and ambulation and the patient has been having lower extremity pain. No acute trauma. He also completed of some worsening shortness of breath as the patient is known to have COPD and patient has chronic right-sided heart failure as his echocardiogram from 2019 showed moderate concentric LVH, ejection fraction on the left being in the order of 55-60%, RV severely enlarged, RV septal wall is flattened consistent with right ventricular pressure overload, R a large, the IVC was dilated consistent with fluid overload, in addition to a PA pressure estimated to be around 50 mmHg. The chest x-ray from showing mild cardiomegaly. No significant interval change compared to the previous chest x- ray from 11/08/2018. The blood work shows a hemoglobin of 12.4 with a white cell count of 8.4. D-dimer is at 1.7. The patient serum bicarb is chronically elevated probably later to chronic hypercapnic respiratory failure. Current bicarb level is at 31. His body mass index is 46.2. The patient has been exposed to cold rhinovirus Covid 19 based on her progress antibody testing that was done on 03/17/2020. Home medication includes Lasix 80 mg by mouth twice a day. The patient has had chronic issues with wounds and lower extremities, and cellulitis. He does have chronic venous stasis and lymphedema involving the lower extremities. He also has obstructive sleep apnea. Does not utilize CPAP therapy. On 05/02/2020 patient seen in follow-up on selective care unit, he is sitting up in the recliner, in no acute distress, he remains on Lasix drip currently at 10 mg per hour, 0.9 normal saline is infusing at 10 ML per hour, patient is in -3 L fluid balance over the last 24 hours, still has significant peripheral edema in his lower extremities. Lower extremities have been wrapped, and covered with Nguyễn wrap's. Patient has had no fever or chills, his had no convincing chest pain, no cough or congestion. Edema may be slightly better. No new labs today. Lung sounds are clear, diminished at the bases, his echocardiogram showed moderate concentric LVH, EF of 55-60% moderate enlargement of the right ventricle. Mild aortic stenosis, moderate tricuspid regurg, moderately severe pulmonary hypertension with lisinopril 48 mmHg. Objective - Vital Signs Vital signs: Vital Signs Temp 98.2 F 05/02/20 11:32 Pulse 90 05/02/20 11:44 Resp 20 05/02/20 11:32 BP 104/53 05/02/20 11:32 Pulse Ox 92 L 05/02/20 11:32 Intake & Output 05/01/20 05/02/20 05/02/20 18:59 06:59 18:59 Intake Total 570 83.5 337.667 Output Total 1400 2300 6000 Balance -830 -2216.5 -5662.333 Weight 150.139 kg 159.1 kg Intake: Intake, IV Titration 83.5 97.667 Amount Furosemide 100 mg In 83.5 97.667 Sodium Chloride 0.9% 90 ml @ 10 MG/HR 10 mls/hr IV .Q10H [facility] Rx#: [id number] Oral 570 240 Output: Urine 1400 2300 6000 Uretheral (Foss) 2300 4000 Other: Voiding Method Diaper Indwelling Catheter Indwelling Catheter # Voids 0 1 # Bowel Movements 0 0 - Exam GENERAL EXAM: Alert, very pleasant, 60-year-old morbidly obese white male on 2 L of oxygen and a pulse ox of 92% comfortable in no apparent distress. HEAD: Normocephalic/atraumatic. EYES: Normal reaction of pupils, equal size. Conjunctiva pink, sclera white. NOSE: Clear with pink turbinates. THROAT: No erythema or exudates. NECK: No masses, no JVD, no thyroid enlargement, no adenopathy. CHEST: No chest wall deformity. Symmetrical expansion. LUNGS: Equal air entry with no crackles, wheeze, rhonchi or dullness. CVS: Regular rate and rhythm, normal S1 and S2, no gallops, no murmurs, no rubs ABDOMEN: Soft, nontender. No hepatosplenomegaly, normal bowel sounds, no guarding or rigidity. EXTREMITIES: No clubbing, 3+ lower extremity edema, and edema involving the upper legs and thighs and abdominal wall, with redness and cellulitis involving his lower extremities no cyanosis, 2+ pulses and upper and lower extremities. MUSCULOSKELETAL: Muscle strength and tone normal. SPINE: No scoliosis or deformity SKIN: No rashes CENTRAL NERVOUS SYSTEM: Alert and oriented -3. No focal deficits, tone is normal in all 4 extremities. PSYCHIATRIC: Alert and oriented -3. Appropriate affect. Intact judgment and insight. - Labs CBC & Chem 7: 05/01/20 04:35 05/01/20 04:35 Labs: Abnormal Lab Results - Last 24 Hours (Table) 05/01/20 05/01/20 05/01/20 Range/Units 11:59 16:41 20:00 D-Dimer 1.71 H (<0.60) mg/L FEU POC Glucose (mg/dL) 132 H 220 H (75-99) mg/dL 05/02/20 05/02/20 Range/Units 06:22 11:36 D-Dimer (<0.60) mg/L FEU POC Glucose (mg/dL) 146 H 134 H (75-99) mg/dL Assessment and Plan Plan: Assessment: 1 chronic lower extremity edema/ulceration with interval worsening secondary to worsening in the swelling/cellulitis. The patient has chronic venous stasis and ulceration related to various comorbidities including right-sided heart failure. He has been taking diuretics at home in the form of Lasix 80 mg by mouth twice a day. 2 COPD/asthma currently inactive in stable 3 diastolic heart failure with severe pulmonary hypertension and evidence of right-sided heart failure with severe RA and RV dilatation and previous echocardiogram showing a PA of 50 4 obstructive sleep apnea nontolerant to CPAP therapy. The patient of is he has a component of obesity hypoventilation syndrome with a BMI of 46.2 and chronic metabolic alkalosis secondary to chronic hypercapnic respiratory failure 5 chronic hypoxic respiratory failure secondary to above 6 previous history of melo virus Covid 19 infection in December 2018, recovered with positive antibodies 7 chronic episodic several episodes of the lower extremities 8 hypothyroidism 9 osteoarthritis 10 hypertension Plan: Continue with Lasix drip from the 24 hours, follow-up labs today and tomorrow loading electrolytes and renal profile, daily weigt. Accurate Intake and output, continue with cefazolin for lower extremity cellulitis, patient has been afebrile. We'll continue to monitor, I performed a history & physical examination of the patient and discussed their management with my nurse practitioner, Karlie Alonzo. I reviewed the nurse practitioner's note and agree with the documented findings and plan of care. Lung sounds are positive for diminished breath sounds. The findings and the impression was discussed with the patient. I attest to the documentation by the nurse practitioner. Time with Patient: Less than 30
--- NOTE | 2020-05-02 15:37 | PN ---
PROGRESS NOTE DATE OF SERVICE: 05/02/2020 REASON FOR FOLLOWUP: Bilateral lower extremity venostasis ulcer and cellulitis. INTERVAL HISTORY: The patient is currently afebrile, patient is breathing more comfortably. Patient denies having any chest pain. No swelling, no redness, lower extremity; however, slightly decreased. Patient has been diuresed and is more than 2700 mL of urine this morning per the PCP. PHYSICAL EXAMINATION: Blood pressure 104/53 with a pulse of 87, temperature 98.2. He is 92% on 2 L nasal cannula. General description is an elderly male, up in the chair in no distress. RESPIRATORY SYSTEM: Unlabored breathing, decreased breath sounds at bases, no wheeze. HEART: S1, S2. Regular rate and rhythm. ABDOMEN: Soft, no tenderness. Lower extremity swelling and redness, slightly decreased. LABS: No new labs have been obtained today. DIAGNOSTIC IMPRESSION AND PLAN: Patient with bilateral lower extremity cellulitis in this patient have diffuse swelling and redness, likely streptococcal disease. Patient is currently covered with cefazolin to continue. Local wound care with Aquacel dressing and Nguyễn wrap and monitor clinical course closely. MMODL / IJN: [id number] /
[2020-05-02 17:23] LABS: Glucose,Whole Blood 128 mg/dL (75-99)
--- NOTE | 2020-05-02 18:13 | HP ---
HISTORY AND PHYSICAL CHIEF COMPLAINT: Difficulty breathing. HISTORY OF PRESENT ILLNESS: This is another admission for this 60-year-old white male. He has been homeless. He was in a long term in [place] and could not be discharged because they could not find a location for him where he could live according to the requirements of his sex offender status. He also has chronic lower extremity lymphedema with stasis dermatitis and cellulitis. He has not been able to take care of his legs of late, either. He has chronic obstructive pulmonary disease and pulmonary hypertension. REVIEW OF SYSTEMS: He denies headaches, neurologic problems, chest pain, abdominal pain, vomiting, melena, hematochezia, jaundice, diarrhea, renal failure, dysuria, frequency, urgency, incontinence, etc. Past medical history, family history, and personal and social histories are all otherwise unremarkable or noncontributory. He does not have a nebulizer. PHYSICAL EXAMINATION: Blood pressure is 135/85 with a pulse of 78, respirations of 36, and he is afebrile. In general, he appeared to be chronically ill. He had facial edema and neck veins could not be assessed. Skin was dry. Chest demonstrated decreased breath sounds with inspiratory and expiratory wheezing and scattered rales, which is normal for him. Cardiac exam demonstrated sinus tachycardia. He has gynecomastia. Abdomen was protuberant and soft and there were no definite masses that could be palpated. Extremities demonstrated his usual severe lymphedema, stasis dermatitis and open weeping from chronic ulcers on both legs and hyperkeratosis on the feet. Neurologically he is intact. He is admitted to the hospital with the diagnoses: 1. Acute respiratory failure. 2. Chronic obstructive pulmonary disease. 3. Pulmonary hypertension. 4. Chronic venostasis disease of the lower extremities with cellulitis and stasis ulcers. PLAN: 1. Bed rest. 2. Pressure dressings to the legs. 3. Echocardiogram. 4. Diuresis. 5. Updrafts. 6. Consult with Vascular Surgery, Infectious Disease, Cardiology and Pulmonology. MMODL / IJN: [id number] /
--- NOTE | 2020-05-02 18:28 | PN ---
PROGRESS NOTE DATE OF SERVICE: 05/02/2020 CHIEF COMPLAINT: Shortness of breath and venostasis disease with dermatitis and ulcers. HISTORY OF PRESENT ILLNESS: This gentleman's breathing has improved slightly. He is a little less congested. PHYSICAL EXAMINATION: Breath sounds are diminished and he has scattered rales and rhonchi throughout. He has inspiratory and expiratory wheezing. Cardiac exam demonstrates sinus tachycardia. The abdomen is protuberant and soft. Extremities are now wrapped with 6-inch Nguyễn wraps and elevated. IMPRESSION: 1. Acute respiratory failure. 2. Congestive heart failure. 3. Chronic obstructive pulmonary disease and reactive airway disease. 4. Pulmonary hypertension. 5. Severe stasis disease in lower extremities with stasis dermatitis and cellulitis. PLAN: 1. Continue with local wound care to the legs. 2. Await any further recommendations from Vascular Surgery and Cardiology as well as Pulmonology. He will be a discharge problem. MMODL / IJN: [id number] /
[2020-05-02 20:03] LABS: Glucose,Whole Blood 141 mg/dL (75-99)
[2020-05-02 20:09] LABS: Hemoglobin A1C 5.5 % (4.0-6.0)
[2020-05-02] MEDS: MONTELUKAST 10 MG TAB PO SCH (20:55)
[2020-05-03] MEDS: methylPREDNISolone SOD SUCCI 125 MG/2 ML VIAL IV SCH ×5 (00:19→23:35)
[2020-05-03] MEDS: IPRATROPIUM-ALBUTEROL 3 ML NEB INHALATION PRN (01:07)
[2020-05-03] MEDS: FUROSEMIDE 100 MG in SODIUM CHLORIDE 0.9% 90 ML IV SCH ×2 (05:18→15:10)
[2020-05-03 07:01] LABS: Glucose,Whole Blood 196 mg/dL (75-99)
[2020-05-03] MEDS: lisinopriL 20 MG TAB PO SCH (07:35)
[2020-05-03] MEDS: THEOPHYLLINE 24 HOUR 300 MG CAP.ER.24H PO SCH (07:35)
[2020-05-03] MEDS: INSULIN ASPART (NovoLOG) 100 UNIT/ML VIAL SQ SCH ×4 (07:35→22:22)
[2020-05-03] MEDS: SPIRONOLACTONE 25 MG TAB PO SCH ×2 (07:35→16:06)
[2020-05-03] MEDS: SYMBICORT 160-4.5 MCG INHALER INHALATION SCH ×2 (09:17→20:31)
[2020-05-03] MEDS: IPRATROPIUM-ALBUTEROL 3 ML NEB INHALATION SCH ×4 (09:17→20:31)
[2020-05-03 11:17] LABS: Glucose,Whole Blood 140 mg/dL (75-99)
--- NOTE | 2020-05-03 12:13 | P.PN ---
Subjective Progress Note Date: 05/03/20 Principal diagnosis: Chronic lower extremity edema/ulceration with interval worsening secondary to worsening in the swelling and cellulitis, severe pulmonary hypertension, diastolic heart failure 60-year-old male patient was hospitalized because of increased lower extremity edema and skin weeping due to increased swelling along with erythema. No reported or documented fever.. The patient has been having difficult mobility and gait and ambulation and the patient has been having lower extremity pain. No acute trauma. He also completed of some worsening shortness of breath as the patient is known to have COPD and patient has chronic right-sided heart failure as his echocardiogram from 2019 showed moderate concentric LVH, ejection fraction on the left being in the order of 55-60%, RV severely enlarged, RV septal wall is flattened consistent with right ventricular pressure overload, R a large, the IVC was dilated consistent with fluid overload, in addition to a PA pressure estimated to be around 50 mmHg. The chest x-ray from showing mild cardiomegaly. No significant interval change compared to the previous chest x- ray from 11/08/2018. The blood work shows a hemoglobin of 12.4 with a white cell count of 8.4. D-dimer is at 1.7. The patient serum bicarb is chronically elevated probably later to chronic hypercapnic respiratory failure. Current bicarb level is at 31. His body mass index is 46.2. The patient has been exposed to cold rhinovirus Covid 19 based on her progress antibody testing that was done on 03/17/2020. Home medication includes Lasix 80 mg by mouth twice a day. The patient has had chronic issues with wounds and lower extremities, and cellulitis. He does have chronic venous stasis and lymphedema involving the lower extremities. He also has obstructive sleep apnea. Does not utilize CPAP therapy. On 05/02/2020 patient seen in follow-up on selective care unit, he is sitting up in the recliner, in no acute distress, he remains on Lasix drip currently at 10 mg per hour, 0.9 normal saline is infusing at 10 ML per hour, patient is in -3 L fluid balance over the last 24 hours, still has significant peripheral edema in his lower extremities. Lower extremities have been wrapped, and covered with Nguyễn wrap's. Patient has had no fever or chills, his had no convincing chest pain, no cough or congestion. Edema may be slightly better. No new labs today. Lung sounds are clear, diminished at the bases, his echocardiogram showed moderate concentric LVH, EF of 55-60% moderate enlargement of the right ventricle. Mild aortic stenosis, moderate tricuspid regurg, moderately severe pulmonary hypertension with lisinopril 48 mmHg. Patient is seen today 05/03/2020 in follow-up on the regular medical floor. He is currently sitting up in a chair at the bedside. Awake and alert in no acute distress. He has diuresed over 10 L of fluid. Remains on a Lasix drip at 10 mg per hour. He is maintaining O2 saturations in the low 90s on room air. He's been afebrile. Blood glucose 140. Remains on cefazolin. Less lower extremity edema. Continued on DuoNeb inhalations, Symbicort, Singulair, IV Solu-Medrol and theophylline. Objective - Vital Signs Vital signs: Vital Signs Temp 98.0 F 05/03/20 10:56 Pulse 91 05/03/20 10:56 Resp 20 05/03/20 10:56 BP 151/62 05/03/20 10:56 Pulse Ox 91 L 05/03/20 10:56 Intake & Output 05/02/20 05/03/20 05/03/20 18:59 06:59 18:59 Intake Total 817.667 823.833 Output Total 6000 4150 3400 Balance -5182.333 -3326.167 -3400 Weight 151.9 kg Intake: Intake, IV Titration 97.667 233.833 Amount Furosemide 100 mg In 97.667 183.833 Sodium Chloride 0.9% 90 ml @ 10 MG/HR 10 mls/hr IV .Q10H [facility] Rx#: [id number] ceFAZolin 2 gm In Sodium 50 Chloride 0.9% 50 ml @ 100 mls/hr IVPB Q8HR [facility] Rx# :[id number] Oral 720 590 Output: Urine 6000 4150 3400 Uretheral (Foss) 1999 3450 1000 Other: Voiding Method Indwelling Catheter Indwelling Catheter Indwelling Catheter # Voids 1 # Bowel Movements 0 0 - Exam GENERAL EXAM: Alert, very pleasant, 60-year-old morbidly obese male patient, on room air and a pulse ox of 91% comfortable in no apparent distress. HEAD: Normocephalic/atraumatic. EYES: Normal reaction of pupils, equal size. Conjunctiva pink, sclera white. NOSE: Clear with pink turbinates. THROAT: No erythema or exudates. NECK: No masses, no JVD, no thyroid enlargement, no adenopathy. CHEST: No chest wall deformity. Symmetrical expansion. LUNGS: Equal air entry with crackles in the bilateral posterior bases. CVS: Regular rate and rhythm, normal S1 and S2, no gallops, no murmurs, no rubs ABDOMEN: Soft, nontender. No hepatosplenomegaly, normal bowel sounds, no guarding or rigidity. EXTREMITIES: No clubbing, 3+ lower extremity edema, and edema involving the upper legs and thighs and abdominal wall, with redness and cellulitis involving his lower extremities no cyanosis, 2+ pulses and upper and lower extremities. MUSCULOSKELETAL: Muscle strength and tone normal. SPINE: No scoliosis or deformity SKIN: No rashes CENTRAL NERVOUS SYSTEM: No focal deficits, tone is normal in all 4 extremities. PSYCHIATRIC: Alert and oriented -3. Appropriate affect. Intact judgment and insight. - Labs CBC & Chem 7: 05/01/20 04:35 05/01/20 04:35 Labs: Abnormal Lab Results - Last 24 Hours (Table) 05/02/20 05/02/20 05/03/20 Range/Units 16:55 20:00 06:57 POC Glucose (mg/dL) 128 H 141 H 196 H (75-99) mg/dL 05/03/20 Range/Units 10:57 POC Glucose (mg/dL) 140 H (75-99) mg/dL Assessment and Plan Assessment: 1 chronic lower extremity edema/ulceration with interval worsening secondary to worsening in the swelling/cellulitis. The patient has chronic venous stasis and ulceration related to various comorbidities including right-sided heart failure. He has been taking diuretics at home in the form of Lasix 80 mg by mouth twice a day. 2 COPD/asthma currently inactive in stable 3 diastolic heart failure with severe pulmonary hypertension and evidence of right-sided heart failure with severe RA and RV dilatation and previous echocardiogram showing a PA of 50 4 obstructive sleep apnea nontolerant to CPAP therapy. The patient of is he has a component of obesity hypoventilation syndrome with a BMI of 46.2 and chronic metabolic alkalosis secondary to chronic hypercapnic respiratory failure 5 chronic hypoxic respiratory failure secondary to above 6 previous history of melo virus Covid 19 infection in December 2018, recovered with positive antibodies 7 chronic episodic several episodes of the lower extremities 8 hypothyroidism 9 osteoarthritis 10 hypertension Plan: The patient was seen and evaluated by Decrease Lasix drip to 5 mg per hour Continue to monitor electrolytes We will continue to follow I, the cosigning physician, performed a history & physical examination of the patient. Lungs sounds with crackles in the bilateral posterior bases. Maintaining good O2 saturations in the 90s on room air. I discussed the assessment and plan of care with my nurse practitioner, Alice Ordaz. I attest to the above note as dictated by her.
[2020-05-03 13:03] LABS: Anisocytosis Slight; Basophils % (A) 0 %; Eosinophils % (A) 0 %; HCT 40.6 % (39.0-53.0); HGB 12.5 gm/dL (13.0-17.5); Hypochromasia Slight; Lymphocytes # (A) 0.5 k/uL (1.0-4.8); Lymphocytes % (A) 4 %; MCH 26.1 pg (25.0-35.0); MCHC 30.7 g/dL (31.0-37.0); MCV 84.8 fL (80.0-100.0); Mean Platelet Volume 7.1; Monocytes # (A) 0.4 k/uL (0-1.0); Monocytes % (A) 3 %; Neutrophils # (A) 11.1 k/uL (1.3-7.7); Neutrophils % (A) 91 %; Platelet Count 347 k/uL (150-450); RBC 4.79 m/uL (4.30-5.90); RDW 16.6 % (11.5-15.5); WBC 12.2 k/uL (3.8-10.6)
[2020-05-03 17:10] LABS: Glucose,Whole Blood 133 mg/dL (75-99)
--- NOTE | 2020-05-03 17:55 | PN ---
PROGRESS NOTE DATE OF SERVICE: 05/03/2020 REASON FOR FOLLOWUP: Bilateral lower extremity cellulitis. INTERVAL HISTORY: The patient is currently afebrile. The patient is breathing comfortably. The patient denies having any chest pain. Occasional cough. No abdominal pain. Still has swelling in the legs, but the redness has improved. PHYSICAL EXAMINATION: Blood pressure is 151/62 with a pulse of 91, temperature 98. He is 91% on room air. General description is a middle-aged male up in the chair in no distress. RESPIRATORY SYSTEM: Unlabored breathing with decreased breath sounds at the base. No wheeze. HEART: S1, S2. Regular rate and rhythm. ABDOMEN: Soft. No tenderness. Leg swelling persists. Redness has improved. LABS: Hemoglobin 10.5, white count 12.2. DIAGNOSTIC IMPRESSION AND PLAN: Patient with bilateral lower extremity venostasis ulcers with secondary cellulitis, likely streptococcal disease in this patient who did have diffuse swelling and redness. Plan at this time is to continue with the local wound care with dry Aquacel Silver dressing and hopefully finish therapy with oral Keflex on discharge. Continue with supportive care. MMODL / IJN: [id number] /
--- NOTE | 2020-05-03 18:47 | PN ---
PROGRESS NOTE CHIEF COMPLAINT: Acute respiratory failure, COPD, chronic persistent asthma as well as cellulitis and stasis dermatitis of the lower extremities. HISTORY OF PRESENT ILLNESS: This gentleman is doing just about the same. Breathing seems to be improved. He is very worried about discharge and wants to go back to [facility]. He is currently not having any fever, chills, chest pain etc. PHYSICAL EXAMINATION: Chest demonstrates very poor breath sounds throughout with tight inspiratory and expiratory wheezing. The cardiac exam is normal. The abdomen is protuberant and soft. Extremities are wrapped. IMPRESSION: 1. Respiratory failure. 2. Chronic obstructive pulmonary disease. 3. Chronic reactive airway disease. 4. Pulmonary hypertension. 5. Chronic venous and lymphatic stasis of the lower extremities with stasis dermatitis, cellulitis and ulcers. PLAN: Continue with current program while awaiting a discharge arrangement. ADARSH / CRITSOBAL: [id number] /
[2020-05-03] MEDS ORDERED: HYDROcodone/APAP 5-325MG 1 EACH TAB PO PRN (20:18)
[2020-05-03 20:25] LABS: Glucose,Whole Blood 185 mg/dL (75-99)
[2020-05-03] MEDS: MONTELUKAST 10 MG TAB PO SCH (22:22)
[2020-05-03 22:31] LABS: Albumin 3.6 g/dL (3.80-4.90); Anion Gap 8.3 mmol/L (4.00-12.00); Calcium 8.9 mg/dL (8.7-10.3); Carbon Dioxide 35.7 mmol/L (21.6-31.8); Globulin 3.6 g/dL (1.6-3.3); Non-African American GFR(CKD) 101.9 (60.0-200.0); Potassium 3.7 mmol/L (3.5-5.5); Total Bilirubin 0.2 mg/dL (0.3-1.2); Total Protein 7.2 g/dL (6.2-8.2)
[2020-05-04] MEDS: FUROSEMIDE 100 MG in SODIUM CHLORIDE 0.9% 90 ML IV SCH ×2 (00:54→11:57)
[2020-05-04] MEDS: methylPREDNISolone SOD SUCCI 125 MG/2 ML VIAL IV SCH ×2 (05:41→11:58)
[2020-05-04] MEDS: THEOPHYLLINE 24 HOUR 300 MG CAP.ER.24H PO SCH (07:12)
[2020-05-04] MEDS: SPIRONOLACTONE 25 MG TAB PO SCH ×2 (07:13→16:46)
[2020-05-04] MEDS: lisinopriL 20 MG TAB PO SCH (07:13)
[2020-05-04] MEDS: SYMBICORT 160-4.5 MCG INHALER INHALATION SCH ×2 (07:26→19:40)
[2020-05-04] MEDS: IPRATROPIUM-ALBUTEROL 3 ML NEB INHALATION SCH ×4 (07:26→19:41)
[2020-05-04 07:52] LABS: Glucose,Whole Blood 127 mg/dL (75-99)
[2020-05-04] MEDS: INSULIN ASPART (NovoLOG) 100 UNIT/ML VIAL SQ SCH ×4 (07:55→21:01)
[2020-05-04 10:58] LABS: Glucose,Whole Blood 113 mg/dL (75-99)
--- NOTE | 2020-05-04 16:48 | P.PN ---
Subjective Progress Note Date: 05/04/20 Principal diagnosis: Chronic lower extremity edema/ulceration with interval worsening secondary to worsening in the swelling and cellulitis, severe pulmonary hypertension, diastolic heart failure 60-year-old male patient was hospitalized because of increased lower extremity edema and skin weeping due to increased swelling along with erythema. No reported or documented fever.. The patient has been having difficult mobility and gait and ambulation and the patient has been having lower extremity pain. No acute trauma. He also completed of some worsening shortness of breath as the patient is known to have COPD and patient has chronic right-sided heart failure as his echocardiogram from 2019 showed moderate concentric LVH, ejection fraction on the left being in the order of 55-60%, RV severely enlarged, RV septal wall is flattened consistent with right ventricular pressure overload, R a large, the IVC was dilated consistent with fluid overload, in addition to a PA pressure estimated to be around 50 mmHg. The chest x-ray from showing mild cardiomegaly. No significant interval change compared to the previous chest x- ray from 11/08/2018. The blood work shows a hemoglobin of 12.4 with a white cell count of 8.4. D-dimer is at 1.7. The patient serum bicarb is chronically elevated probably later to chronic hypercapnic respiratory failure. Current bicarb level is at 31. His body mass index is 46.2. The patient has been exposed to cold rhinovirus Covid 19 based on her progress antibody testing that was done on 03/17/2020. Home medication includes Lasix 80 mg by mouth twice a day. The patient has had chronic issues with wounds and lower extremities, and cellulitis. He does have chronic venous stasis and lymphedema involving the lower extremities. He also has obstructive sleep apnea. Does not utilize CPAP therapy. On 05/02/2020 patient seen in follow-up on selective care unit, he is sitting up in the recliner, in no acute distress, he remains on Lasix drip currently at 10 mg per hour, 0.9 normal saline is infusing at 10 ML per hour, patient is in -3 L fluid balance over the last 24 hours, still has significant peripheral edema in his lower extremities. Lower extremities have been wrapped, and covered with Nguyễn wrap's. Patient has had no fever or chills, his had no convincing chest pain, no cough or congestion. Edema may be slightly better. No new labs today. Lung sounds are clear, diminished at the bases, his echocardiogram showed moderate concentric LVH, EF of 55-60% moderate enlargement of the right ventricle. Mild aortic stenosis, moderate tricuspid regurg, moderately severe pulmonary hypertension with lisinopril 48 mmHg. On 05/04/2020 patient seen in follow-up on general medical oncology floor, doing well continues on Lasix drip currently at 10 mg per hour 1.9 normal saline at a rate of 5 ML per hour, he has been diuresing quite extensively, patient is on 3 L of oxygen a pulse ox of 90-93%,, denies any shortness of breath, he is able to lie flat in bed without any respiratory distress, over last 24 hours patient has produced over 10 L in urine output, he is in -9 L fluid balance over the last 24 hours, lower extremity edema is improving, lower extremity cellulitis with open weeping areas improving, less drainage, less redness. he is receiving local wound care with Aquasol and Nguyễn wraps to lower extremities. No new labs today. Vitals stable, no fever or chills Objective - Vital Signs Vital signs: Vital Signs Temp 98.7 F 05/04/20 15:35 Pulse 98 05/04/20 16:00 Resp 14 05/04/20 16:00 BP 120/68 05/04/20 15:35 Pulse Ox 90 L 05/04/20 15:35 Intake & Output 05/03/20 05/04/20 05/04/20 18:59 06:59 18:59 Intake Total 458.667 97.333 940 Output Total 6850 6500 32428 Balance -6391.333 -6402.667 -9060 Intake: Intake, IV Titration 98.667 97.333 100 Amount Furosemide 100 mg In 98.667 97.333 100 Sodium Chloride 0.9% 90 ml @ 10 MG/HR 10 mls/hr IV .Q10H [facility] Rx#: [id number] Oral 360 840 Output: Urine 6850 6500 22541 Uretheral (Foss) 2500 3400 1000 Other: Voiding Method Indwelling Catheter Indwelling Catheter Indwelling Catheter # Voids 1 1 1 # Bowel Movements 0 1 1 - Exam GENERAL EXAM: Alert, very pleasant, 60-year-old morbidly obese white male on 3 L of oxygen and a pulse ox of 90% comfortable in no apparent distress. HEAD: Normocephalic/atraumatic. EYES: Normal reaction of pupils, equal size. Conjunctiva pink, sclera white. NOSE: Clear with pink turbinates. THROAT: No erythema or exudates. NECK: No masses, no JVD, no thyroid enlargement, no adenopathy. CHEST: No chest wall deformity. Symmetrical expansion. LUNGS: Equal air entry with no crackles, wheeze, rhonchi or dullness. CVS: Regular rate and rhythm, normal S1 and S2, no gallops, no murmurs, no rubs ABDOMEN: Soft, nontender. No hepatosplenomegaly, normal bowel sounds, no guarding or rigidity. EXTREMITIES: No clubbing, 3+ lower extremity edema, and edema involving the upper legs and thighs and abdominal wall, with redness and cellulitis involving his lower extremities no cyanosis, 2+ pulses and upper and lower extremities. MUSCULOSKELETAL: Muscle strength and tone normal. SPINE: No scoliosis or deformity SKIN: No rashes CENTRAL NERVOUS SYSTEM: Alert and oriented -3. No focal deficits, tone is normal in all 4 extremities. PSYCHIATRIC: Alert and oriented -3. Appropriate affect. Intact judgment and insight. - Labs CBC & Chem 7: 05/03/20 12:39 05/03/20 12:39 Labs: Abnormal Lab Results - Last 24 Hours (Table) 05/03/20 05/03/20 05/03/20 Range/Units 12:39 17:07 20:23 Chloride 94 L (96-109) mmol/L Carbon Dioxide 35.7 H (21.6-31.8) mmol/L BUN/Creatinine Ratio 30.00 H (12.00-20.00) Ratio Glucose 125 H (70-110) mg/dL POC Glucose (mg/dL) 133 H 185 H (75-99) mg/dL Total Bilirubin 0.2 L (0.3-1.2) mg/dL ALT 8 L (10-49) U/L Albumin 3.60 L (3.80-4.90) g/dL Globulin 3.6 H (1.6-3.3) g/dL Albumin/Globulin Ratio 1.00 L (1.60-3.17) g/dL 05/04/20 05/04/20 Range/Units 07:51 10:56 Chloride (96-109) mmol/L Carbon Dioxide (21.6-31.8) mmol/L BUN/Creatinine Ratio (12.00-20.00) Ratio Glucose (70-110) mg/dL POC Glucose (mg/dL) 127 H 113 H (75-99) mg/dL Total Bilirubin (0.3-1.2) mg/dL ALT (10-49) U/L Albumin (3.80-4.90) g/dL Globulin (1.6-3.3) g/dL Albumin/Globulin Ratio (1.60-3.17) g/dL Assessment and Plan Plan: Assessment: 1 chronic lower extremity edema/ulceration with interval worsening secondary to worsening in the swelling/cellulitis. The patient has chronic venous stasis and ulceration related to various comorbidities including right-sided heart failure. He has been taking diuretics at home in the form of Lasix 80 mg by mouth twice a day. 2 COPD/asthma currently inactive in stable 3 diastolic heart failure with severe pulmonary hypertension and evidence of right-sided heart failure with severe RA and RV dilatation and previous echocardiogram showing a PA of 50 4 obstructive sleep apnea nontolerant to CPAP therapy. The patient of is he has a component of obesity hypoventilation syndrome with a BMI of 46.2 and chronic metabolic alkalosis secondary to chronic hypercapnic respiratory failure 5 chronic hypoxic respiratory failure secondary to above 6 previous history of melo virus Covid 19 infection in December 2018, recovered with positive antibodies 7 chronic episodic several episodes of the lower extremities 8 hypothyroidism 9 osteoarthritis 10 hypertension Plan: We will discontinue Lasix infusion, we'll switch to Lasix 40 mg every 12 hours, continue IV Kefzol, continue local wound treatment to the lower extremities, follow-up electrolytes and renal profile in the morning. Decrease the IV Solu- Medrol to 40 mg every 12 hours. We'll continue to follow I performed a history & physical examination of the patient and discussed their management with my nurse practitioner, Karlie Rosado. I reviewed the nurse practitioner's note and agree with the documented findings and plan of care. Lung sounds are positive for diminished breath sounds. The findings and the impression was discussed with the patient. I attest to the documentation by the nurse practitioner. Time with Patient: Less than 30
--- NOTE | 2020-05-04 16:49 | PN ---
PROGRESS NOTE CHIEF COMPLAINT: Shortness of breath. HISTORY OF PRESENT ILLNESS: This gentleman is doing a little bit better. Breathing is much improved. He is anxious to get out of the hospital and wants to go back to [facility]. PHYSICAL EXAMINATION: Breath sounds are extremely poor with leathery rales throughout. Cardiac exam demonstrates sinus tachycardia. The abdomen is protuberant. Extremities are unchanged. They are elevated and wrapped. IMPRESSION: 1. Exacerbation of chronic obstructive pulmonary disease. 2. Chronic persistent reactive airway disease. 3. Interstitial fibrosis. 4. Pulmonary hypertension. 5. Diastolic heart failure. 6. Venous insufficiency with stasis dermatitis and cellulitis of the legs. PLAN: Continue with current management until discharge plan is established. MMODL / IJN: [id number] /
[2020-05-04 17:13] LABS: Glucose,Whole Blood 137 mg/dL (75-99)
[2020-05-04 20:11] LABS: Glucose,Whole Blood 134 mg/dL (75-99)
[2020-05-04] MEDS: MONTELUKAST 10 MG TAB PO SCH (20:59)
[2020-05-04] MEDS: methylPREDNISolone SOD SUCCI 40 MG/ML 1 ML VIAL IV SCH (21:00)
[2020-05-04] MEDS: FUROSEMIDE 10 MG/ML 4 ML VIAL IV SCH (21:00)
--- NOTE | 2020-05-04 23:34 | PN ---
PROGRESS NOTE DATE OF SERVICE: 05/04/2020 REASON FOR FOLLOWUP: Bilateral lower extremity ulcer and cellulitis. INTERVAL HISTORY: The patient is currently afebrile. Patient is breathing comfortably. Denies having any chest pain or shortness of breath or cough. No abdominal pain or any worsening pain to the lower extremity. PHYSICAL EXAMINATION: Blood pressure 126/78 with a pulse of 94, temperature 99.2. He is 93% on 3 L nasal cannula. General description is a middle-aged male up in the chair in no distress. RESPIRATORY SYSTEM: Unlabored breathing, clear to auscultation anteriorly. HEART: S1, S2. Regular rate and rhythm. ABDOMEN: Soft, no tenderness. Legs are currently wrapped. No obvious drainage on the dressing. DIAGNOSTIC IMPRESSION AND PLAN: Patient with bilateral lower extremity cellulitis with venous stasis ulcer to continue with cefazolin 2 grams q.8 hours. Local care with Aquacel dressing and Nguyễn wrap. Continue supportive care. MMODL / IJN: [id number] /
[2020-05-05 06:57] LABS: Glucose,Whole Blood 117 mg/dL (75-99)
[2020-05-05] MEDS: INSULIN ASPART (NovoLOG) 100 UNIT/ML VIAL SQ SCH ×2 (07:59→12:26)
[2020-05-05] MEDS: SYMBICORT 160-4.5 MCG INHALER INHALATION SCH (08:07)
[2020-05-05] MEDS: IPRATROPIUM-ALBUTEROL 3 ML NEB INHALATION SCH ×2 (08:07→11:13)
[2020-05-05] MEDS: THEOPHYLLINE 24 HOUR 300 MG CAP.ER.24H PO SCH (08:09)
[2020-05-05] MEDS: SPIRONOLACTONE 25 MG TAB PO SCH (08:11)
[2020-05-05] MEDS: FUROSEMIDE 10 MG/ML 4 ML VIAL IV SCH (08:11)
[2020-05-05] MEDS: methylPREDNISolone SOD SUCCI 40 MG/ML 1 ML VIAL IV SCH (08:11)
[2020-05-05] MEDS: lisinopriL 20 MG TAB PO SCH (08:11)
[2020-05-05 09:25] LABS: Anion Gap 5.3 mmol/L (4.00-12.00); BUN/Creat Ratio 42.86 Ratio (12.00-20.00); Carbon Dioxide 38.7 mmol/L (21.6-31.8); Non-African American GFR(CKD) 101.9 (60.0-200.0); Potassium 4.4 mmol/L (3.5-5.5)
[2020-05-05 11:17] LABS: Glucose,Whole Blood 112 mg/dL (75-99)
[2020-05-05 11:39] VITALS: BP 139/76; PULSE 85; RESP 18; TEMP 97.5
--- NOTE | 2020-05-05 12:05 | P.PN ---
Subjective Progress Note Date: 05/05/20 Principal diagnosis: Chronic lower extremity edema/ulceration with interval worsening secondary to worsening in the swelling and cellulitis, severe pulmonary hypertension, diastolic heart failure 60-year-old male patient was hospitalized because of increased lower extremity edema and skin weeping due to increased swelling along with erythema. No reported or documented fever.. The patient has been having difficult mobility and gait and ambulation and the patient has been having lower extremity pain. No acute trauma. He also completed of some worsening shortness of breath as the patient is known to have COPD and patient has chronic right-sided heart failure as his echocardiogram from 2019 showed moderate concentric LVH, ejection fraction on the left being in the order of 55-60%, RV severely enlarged, RV septal wall is flattened consistent with right ventricular pressure overload, R a large, the IVC was dilated consistent with fluid overload, in addition to a PA pressure estimated to be around 50 mmHg. The chest x-ray from showing mild cardiomegaly. No significant interval change compared to the previous chest x- ray from 11/08/2018. The blood work shows a hemoglobin of 12.4 with a white cell count of 8.4. D-dimer is at 1.7. The patient serum bicarb is chronically elevated probably later to chronic hypercapnic respiratory failure. Current bicarb level is at 31. His body mass index is 46.2. The patient has been exposed to cold rhinovirus Covid 19 based on her progress antibody testing that was done on 03/17/2020. Home medication includes Lasix 80 mg by mouth twice a day. The patient has had chronic issues with wounds and lower extremities, and cellulitis. He does have chronic venous stasis and lymphedema involving the lower extremities. He also has obstructive sleep apnea. Does not utilize CPAP therapy. On 05/02/2020 patient seen in follow-up on selective care unit, he is sitting up in the recliner, in no acute distress, he remains on Lasix drip currently at 10 mg per hour, 0.9 normal saline is infusing at 10 ML per hour, patient is in -3 L fluid balance over the last 24 hours, still has significant peripheral edema in his lower extremities. Lower extremities have been wrapped, and covered with Nguyễn wrap's. Patient has had no fever or chills, his had no convincing chest pain, no cough or congestion. Edema may be slightly better. No new labs today. Lung sounds are clear, diminished at the bases, his echocardiogram showed moderate concentric LVH, EF of 55-60% moderate enlargement of the right ventricle. Mild aortic stenosis, moderate tricuspid regurg, moderately severe pulmonary hypertension with lisinopril 48 mmHg. Patient is seen today 05/03/2020 in follow-up on the regular medical floor. He is currently sitting up in a chair at the bedside. Awake and alert in no acute distress. He has diuresed over 10 L of fluid. Remains on a Lasix drip at 10 mg per hour. He is maintaining O2 saturations in the low 90s on room air. He's been afebrile. Blood glucose 140. Remains on cefazolin. Less lower extremity edema. Continued on DuoNeb inhalations, Symbicort, Singulair, IV Solu-Medrol and theophylline. On 05/04/2020 patient seen in follow-up on general medical oncology floor, doing well continues on Lasix drip currently at 10 mg per hour 1.9 normal saline at a rate of 5 ML per hour, he has been diuresing quite extensively, patient is on 3 L of oxygen a pulse ox of 90-93%,, denies any shortness of breath, he is able to lie flat in bed without any respiratory distress, over last 24 hours patient has produced over 10 L in urine output, he is in -9 L fluid balance over the last 24 hours, lower extremity edema is improving, lower extremity cellulitis with open weeping areas improving, less drainage, less redness. he is receiving local wound care with Aquasol and Nguyễn wraps to lower extremities. No new labs today. Vitals stable, no fever or chills The patient is seen today 05/05/2020 in follow-up on the regular medical floor. He is currently sitting up at the bedside. Working with physical therapy. He continues to diurese well. Currently in a negative balance, down another 4 L today. Sodium 135. Potassium 4.4. Creatinine 0.7. Glucose 127. Remains on DuoNeb inhalations, Symbicort, IV Solu-Medrol. Lasix at 40 mg IV every 12 hours. Remains on cefazolin. Nguyễn wraps to lower extremities. Improved lower extremity edema. Objective - Vital Signs Vital signs: Vital Signs Temp 97.5 F L 05/05/20 11:38 Pulse 85 05/05/20 11:38 Resp 18 05/05/20 11:38 BP 139/76 05/05/20 11:38 Pulse Ox 93 L 05/05/20 11:38 Intake & Output 05/04/20 05/05/20 05/05/20 18:59 06:59 18:59 Intake Total 1420 50 Output Total 96384 5600 Balance -9080 -5550 Weight 151.5 kg Intake: Intake, IV Titration 100 50 Amount Furosemide 100 mg In 100 Sodium Chloride 0.9% 90 ml @ 10 MG/HR 10 mls/hr IV .Q10H [facility] Rx#: [id number] ceFAZolin 2 gm In Sodium 50 Chloride 0.9% 50 ml @ 100 mls/hr IVPB Q8HR [facility] Rx# :[id number] Oral 1320 Output: Urine 91154 5600 Uretheral (Foss) 1500 2400 Other: Voiding Method Indwelling Catheter Indwelling Catheter # Voids 1 0 # Bowel Movements 1 0 - Exam GENERAL EXAM: Alert, very pleasant, 60-year-old morbidly obese male patient, on 3 L and a pulse ox of 91% comfortable in no apparent distress. HEAD: Normocephalic/atraumatic. EYES: Normal reaction of pupils, equal size. Conjunctiva pink, sclera white. NOSE: Clear with pink turbinates. THROAT: No erythema or exudates. NECK: No masses, no JVD, no thyroid enlargement, no adenopathy. CHEST: No chest wall deformity. Symmetrical expansion. LUNGS: Equal air entry with crackles in the bilateral posterior bases. CVS: Regular rate and rhythm, normal S1 and S2, no gallops, no murmurs, no rubs ABDOMEN: Soft, nontender. No hepatosplenomegaly, normal bowel sounds, no guarding or rigidity. EXTREMITIES: No clubbing, 3+ lower extremity edema, and edema involving the upper legs and thighs and abdominal wall, with redness and cellulitis involving his lower extremities no cyanosis, 2+ pulses and upper and lower extremities. MUSCULOSKELETAL: Muscle strength and tone normal. SPINE: No scoliosis or deformity SKIN: No rashes CENTRAL NERVOUS SYSTEM: No focal deficits, tone is normal in all 4 extremities. PSYCHIATRIC: Alert and oriented -3. Appropriate affect. Intact judgment and insight. - Labs CBC & Chem 7: 05/03/20 12:39 05/05/20 05:55 Labs: Abnormal Lab Results - Last 24 Hours (Table) 05/04/20 05/04/20 05/05/20 Range/Units 17:12 20:10 05:55 Chloride 91 L (96-109) mmol/L Carbon Dioxide 38.7 H (21.6-31.8) mmol/L BUN 30.0 H (9.0-27.0) mg/dL BUN/Creatinine Ratio 42.86 H (12.00-20.00) Ratio Glucose 127 H (70-110) mg/dL POC Glucose (mg/dL) 137 H 134 H (75-99) mg/dL 05/05/20 05/05/20 Range/Units 06:56 11:16 Chloride (96-109) mmol/L Carbon Dioxide (21.6-31.8) mmol/L BUN (9.0-27.0) mg/dL BUN/Creatinine Ratio (12.00-20.00) Ratio Glucose (70-110) mg/dL POC Glucose (mg/dL) 117 H 112 H (75-99) mg/dL Assessment and Plan Assessment: 1 chronic lower extremity edema/ulceration with interval worsening secondary to worsening in the swelling/cellulitis. The patient has chronic venous stasis and ulceration related to various comorbidities including right-sided heart failure. He has been taking diuretics at home in the form of Lasix 80 mg by mouth twice a day. He has been diuresed significantly and currently off the Lasix drip 940 mg IV every 12 hours. 2 COPD/asthma currently inactive in stable 3 diastolic heart failure with severe pulmonary hypertension and evidence of right-sided heart failure with severe RA and RV dilatation and previous echocardiogram showing a PA of 50 4 obstructive sleep apnea nontolerant to CPAP therapy. The patient of is he has a component of obesity hypoventilation syndrome with a BMI of 46.2 and chronic metabolic alkalosis secondary to chronic hypercapnic respiratory failure 5 chronic hypoxic respiratory failure secondary to above 6 previous history of melo virus Covid 19 infection in December 2018, recovered with positive antibodies 7 chronic episodic several episodes of the lower extremities 8 hypothyroidism 9 osteoarthritis 10 hypertension Plan: The patient was seen and evaluated by He continues to diurese significantly Lasix down to 40 mg IV every 12 hours Continue to monitor electrolytes We will continue to follow I, the cosigning physician, performed a history & physical examination of the patient. Lungs sounds with crackles in the bilateral posterior bases. Maintaining good O2 saturations in the 90s on 3 L/m per nasal cannula I discussed the assessment and plan of care with my nurse practitioner, Alice Ordaz. I attest to the above note as dictated by her.
--- NOTE | 2020-05-05 13:30 | DS ---
DISCHARGE SUMMARY CHIEF COMPLAINT: Difficulty breathing. HISTORY OF PRESENT ILLNESS AND PHYSICAL EXAMINATION: Details of this man's history and physical can be found in the initial workup. COURSE IN THE HOSPITAL: After admission he was placed on bedrest, started on intravenous fluids, nasal O2, updrafts, diuretics, and steroids. He improved. His legs were treated locally with diuretics, external compression, and elevation. He was steadily improving but did not have a place to go and he was approved to go back to [facility] for long- term care which is what he requested. FINAL DIAGNOSES: 1. Acute congestive heart failure, diastolic. 2. Chronic diastolic congestive heart failure. 3. Interstitial fibrosis. 4. Pulmonary hypertension. 5. Reactive airway disease. 6. Venostasis disease of the lower extremities. 7. Venostasis dermatitis of the lower extremities. 8. Venostasis ulcers of the lower extremities with cellulitis. OPERATIONS: None. CONSULTATION: Infectious disease. He is improved. MMODL / IJN: [id number] /
--- NOTE | 2020-05-05 15:27 | PN ---
PROGRESS NOTE DATE OF SERVICE: 05/05/2020 REASON FOR FOLLOWUP: Bilateral lower extremity wounds and cellulitis. INTERVAL HISTORY: The patient is currently afebrile. The patient is breathing slightly comfortably. Denies having any chest pain or cough. No nausea or vomiting. No diarrhea or worsening pain to the lower extremities. Overall swelling has improved. No drainage. PHYSICAL EXAMINATION: Blood pressure 139/76, pulse of 85, temperature 97.5. She is 93% on 2 L nasal cannula. General description is a middle-aged male up in the chair in no distress. RESPIRATORY SYSTEM: Unlabored breathing. Clear to auscultation anteriorly. HEART: S1, S2. Regular rate and rhythm. ABDOMEN: Soft. No tenderness. Legs are currently wrapped up. Overall swelling and redness has decreased. No drainage on the dressing. LABS: BUN of 30, creatinine 0.7. DIAGNOSTIC IMPRESSION AND PLAN: Patient with bilateral lower extremity venostasis ulcers and cellulitis, overall improved with cefazolin. Antibiotic will be switched over to Keflex 500 mg p.o. q.6 hours for 10 days. Local care to continue as ordered. Continue with supportive care. MMODL / IJN: [id number] /
== END 2020-05-05 15:26 | DRG 299 ==
LOC: EC 03:42 → 3SCARD 05:50 → EEVIPCON 05:50 → 6NMEDSUR 05-02 21:51
PROVIDERS: ADMIT Family Medicine; ATTEND Family Medicine
DX: I87.2 Venous insufficiency (chronic) (peripheral) (principal); J96.21 Acute and chronic respiratory failure with hypoxia; J96.22 Acute and chronic respiratory failure with hypercapnia; I50.33 Acute on chronic diastolic (congestive) heart failure; J44.1 Chronic obstructive pulmonary disease with (acute) exacerbation; Z68.42 Body mass index [BMI] 45.0-49.9, adult; L03.116 Cellulitis of left lower limb; L03.115 Cellulitis of right lower limb; E87.3 Alkalosis; E66.01 Morbid (severe) obesity due to excess calories; M19.90 Unspecified osteoarthritis, unspecified site; I11.0 Hypertensive heart disease with heart failure; G47.33 Obstructive sleep apnea (adult) (pediatric); E89.0 Postprocedural hypothyroidism; I27.29 Other secondary pulmonary hypertension; J84.10 Pulmonary fibrosis, unspecified; Z79.899 Other long term (current) drug therapy; Z88.0 Allergy status to penicillin; Z90.89 Acquired absence of other organs; Z98.890 Other specified postprocedural states; Z80.1 Family history of malignant neoplasm of trachea, bronchus and lung; Z86.19 Personal history of other infectious and parasitic diseases; Z59.0 Homelessness
CPT/HCPCS: 36415; 71046; 80048; 80053; 83036; 83880; 85025; 85379; 93306; 94640; 94760; 96374; 99284

== ENCOUNTER 2021-12-14 02:43 | Emergency (ER) | payer MEDICARE, OTHER ==
[2021-12-14 03:11] VITALS: TEMP 98
--- NOTE | 2021-12-14 03:21 | ED ---
Recheck HPI - General Chief Complaint: Recheck/Abnormal Lab/Rx Stated Complaint: Low Sodium Time Seen by Provider: 12/14/21 02:44 Source: EMS, RN notes reviewed, old records reviewed Mode of arrival: EMS - History of Present Illness Initial Comments: This is a 61-year-old male who presents today for evaluation of abnormal outpatient lab testing. Patient apparently had low sodium and an outpatient level. Patient has no complaints, I'm sure of why they're checking his sodium, he is on sodium supplementation. Patient is a poor historian secondary to agitated state MD Complaint: abnormal lab -: unknown Returns Today for: Called Because of Abnormal Lab/Test Symptoms Since Prior Visit: no new symptoms Context: planned re-check, called for abnormal lab result Associated Symptoms: none Treatments Prior to Arrival: other medications - Related Data Home Medications Medication Instructions Recorded Confirmed Fluticasone/Salmeterol [Advair 1 puff INHALATION RT-BID@0800,199905/04/14 05/01/20 500-50 Diskus] Furosemide [Lasix] 80 mg PO BID 05/04/14 05/01/20 Albuterol Sulfate [Ventolin HFA] 2 puff INHALATION RT-Q4H PRN 08/12/19 05/01/20 Zafirlukast [Accolate] 20 mg PO BID@0800,1600 08/12/19 05/01/20 Budesonide [Pulmicort] 0.5 mg INHALATION RT-BID 03/17/20 05/01/20 Spironolactone [Aldactone] 25 mg PO BID@0800,1600 03/17/20 05/01/20 lisinopriL [Zestril] 20 mg PO DAILY@0800 03/17/20 05/01/20 Theophylline 12 Hour [[place]] 300 mg PO BID 05/05/20 05/05/20 Previous Rx's Medication Instructions Recorded cephALEXin [Keflex] 500 mg PO Q6HR #28 cap 05/05/20 Allergies Allergy/AdvReac Type Severity Reaction Status Date / Time Penicillins Allergy Unknown Verified 05/01/20 06:30 Review of Systems ROS Statement: Those systems with pertinent positive or pertinent negative responses have been documented in the HPI. ROS Other: All systems not noted in ROS Statement are negative. 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, chronic lower extremity edema and wounds lower extremities with episodic cellulitis, chronic venous stasis, previous history of melo virus Covid 19 infection in December 2019 recovered with positive antibodies, bilateral feet onychomycosis, hypertension, COPD, diastolic heart failure with a preserved LV function and severe pulmonary hypertension along with right-sided heart failure, chronic right bundle branch block pattern on previous EKGs History of Any Multi-Drug Resistant Organisms: None Reported Past Surgical History: Adenoidectomy, Tonsillectomy Additional Past Surgical History / Comment(s): thyroidectomy Past Anesthesia/Blood Transfusion Reactions: No Reported Reaction Past Psychological History: No Psychological Hx Reported Smoking Status: Never smoker - Past Family History Sister(s) Family Medical History: Cancer Additional Family Medical History / Comment(s): Pt cannot recall type of cancer. Mother Family Medical History: Cancer Additional Family Medical History / Comment(s): Lung cancer. Mother was a smoker. Father Family Medical History: No Reported History Additional Family Medical History / Comment(s): Father was healthy General Exam General appearance: alert, in no apparent distress Head exam: Present: atraumatic, normocephalic, normal inspection Eye exam: Present: normal appearance, PERRL, EOMI. Absent: scleral icterus, conjunctival injection, periorbital swelling ENT exam: Present: normal exam, mucous membranes moist Neck exam: Present: normal inspection. Absent: tenderness, meningismus, lymphadenopathy Respiratory exam: Present: normal lung sounds bilaterally. Absent: respiratory distress, wheezes, rales, rhonchi, stridor Cardiovascular Exam: Present: regular rate, normal rhythm, normal heart sounds. Absent: systolic murmur, diastolic murmur, rubs, gallop, clicks GI/Abdominal exam: Present: soft, normal bowel sounds. Absent: distended, tenderness, guarding, rebound, rigid Extremities exam: Present: normal inspection, full ROM, normal capillary refill. Absent: tenderness, pedal edema, joint swelling, calf tenderness Back exam: Present: normal inspection Neurological exam: Present: alert, oriented X3, CN II-XII intact Psychiatric exam: Present: normal affect, normal mood Skin exam: Present: warm, dry, intact, normal color. Absent: rash Course Vital Signs 12/14/21 12/14/21 02:52 04:36 Temperature 98 F Pulse Rate 120 H 99 Respiratory 20 19 Rate Blood Pressure 100/62 112/68 O2 Sat by Pulse 96 98 Oximetry - Reevaluation(s) Reevaluation #1: 12/14/21 Medical record is reviewed Patient symptoms are improving here in the emergency department Patient is informed of results and questions have been answered Medical Decision Making - Medical Decision Making 61 male to the emergency department for hyponatremic. Patient is not currently hyponatremic here in the emergency department that significant. Patient is given IV hydration and can be discharged home - Lab Data Result diagrams: 12/14/21 03:05 12/14/21 03:05 Lab Results 12/14/21 12/14/21 Range/Units 03:05 03:05 WBC 7.8 (3.8-10.6) k/uL RBC 5.09 (4.30-5.90) m/uL Hgb 13.5 (13.0-17.5) gm/dL Hct 43.1 (39.0-53.0) % MCV 84.7 (80.0-100.0) fL MCH 26.6 (25.0-35.0) pg MCHC 31.4 (31.0-37.0) g/dL RDW 16.6 H (11.5-15.5) % Plt Count 304 (150-450) k/uL MPV 8.0 Neutrophils % 77 % Lymphocytes % 14 % Monocytes % 6 % Eosinophils % 0 % Basophils % 0 % Neutrophils # 6.0 (1.3-7.7) k/uL Lymphocytes # 1.1 (1.0-4.8) k/uL Monocytes # 0.4 (0-1.0) k/uL Eosinophils # 0.0 (0-0.7) k/uL Basophils # 0.0 (0-0.2) k/uL Hypochromasia Slight Anisocytosis Slight Sodium 130 L (137-145) mmol/L Potassium 4.7 (3.5-5.1) mmol/L Chloride 92 L (98-107) mmol/L Carbon Dioxide 35 H (22-30) mmol/L Anion Gap 3 mmol/L BUN 14 (9-20) mg/dL Creatinine 0.64 L (0.66-1.25) mg/dL Est GFR (CKD-EPI)AfAm >90 (>60 ml/min/1.73 sqM) Est GFR (CKD-EPI)NonAf >90 (>60 ml/min/1.73 sqM) Glucose 100 H (74-99) mg/dL Calcium 9.2 (8.4-10.2) mg/dL Total Bilirubin 0.8 (0.2-1.3) mg/dL AST 32 (17-59) U/L ALT 15 (4-49) U/L Alkaline Phosphatase 103 (38-126) U/L Total Protein 7.5 (6.3-8.2) g/dL Albumin 3.1 L (3.5-5.0) g/dL Disposition Clinical Impression: Hyponatremia Disposition: HOME SELF-CARE Condition: Good Instructions (If sedation given, give patient instructions): Hyponatremia (ED) Is patient prescribed a controlled substance at d/c from ED?: No Referrals: Denton Alvarado MD [Primary Care Provider] - 1-2 days
[2021-12-14 03:23] LABS: Anisocytosis Slight; Basophils % (A) 0 %; Eosinophils % (A) 0 %; HCT 43.1 % (39.0-53.0); HGB 13.5 gm/dL (13.0-17.5); Hypochromasia Slight; Lymphocytes # (A) 1.1 k/uL (1.0-4.8); Lymphocytes % (A) 14 %; MCH 26.6 pg (25.0-35.0); MCHC 31.4 g/dL (31.0-37.0); MCV 84.7 fL (80.0-100.0); Monocytes # (A) 0.4 k/uL (0-1.0); Monocytes % (A) 6 %; Neutrophils % (A) 77 %; Platelet Count 304 k/uL (150-450); RBC 5.09 m/uL (4.30-5.90); RDW 16.6 % (11.5-15.5); WBC 7.8 k/uL (3.8-10.6)
[2021-12-14 03:26] LABS: ALT 15 U/L (4-49); AST 32 U/L (17-59); African American GFR (CKD) >90 (>60 ml/min/1.73 sqM); Albumin 3.1 g/dL (3.5-5.0); Alkaline Phosphatase 103 U/L (38-126); Anion Gap 3 mmol/L; Blood Urea Nitrogen 14 mg/dL (9-20); Calcium 9.2 mg/dL (8.4-10.2); Carbon Dioxide 35 mmol/L (22-30); Chloride 92 mmol/L (98-107); Glucose 100 mg/dL (74-99); Non-African American GFR(CKD) >90 (>60 ml/min/1.73 sqM); Potassium 4.7 mmol/L (3.5-5.1); Sodium 130 mmol/L (137-145); Total Bilirubin 0.8 mg/dL (0.2-1.3); Total Protein 7.5 g/dL (6.3-8.2)
[2021-12-14 04:38] VITALS: BP 112/68; PULSE 99; RESP 19
== END 2021-12-14 05:51 | disposition home or self-care (01) ==
LOC: EC 02:43
DX: E87.1 Hypo-osmolality and hyponatremia (principal); I11.0 Hypertensive heart disease with heart failure; I50.32 Chronic diastolic (congestive) heart failure; J44.9 Chronic obstructive pulmonary disease, unspecified; M19.90 Unspecified osteoarthritis, unspecified site; Z79.51 Long term (current) use of inhaled steroids; Z79.899 Other long term (current) drug therapy
CPT/HCPCS: 36415; 80053; 85025; 99285